=== PATIENT | male | born 1965 | race Caucasian/White ===

== ENCOUNTER 2025-01-10 20:55 | Inpatient (IN) | payer OTHER, SELFPAY ==
[2025-01-10] VITALS (8 sets, daily range): BP systolic 109–142; BP diastolic 61–84; BMI 31.9
[2025-01-10 18:16] LABS: Hematocrit 41.3 % (39.0-52.0); Hemoglobin 15.3 g/dL (13.0-18.0); Mean Corp Hgb Conc. 37.0 g/dL (33.0-37.0); Mean Corpuscular Volume 83.3 fL (80.0-94.0); Nucleated Red Blood Cells % 0 % (-); Platelet Count 182 10^3/uL (130-400); Red Cell Dist. Width 11.9 % (11.5-14.5)
[2025-01-10 18:31] LABS: ALT (SGPT) 66 U/L (0-50); AST (SGOT) 45 U/L (17-59); Albumin 4.4 g/dl (3.5-5.0); Alkaline Phosphatase 90 U/L (38-126); Blood Urea Nitrogen 17 mg/dl (9-20); Calcium 9.9 mg/dl (8.4-10.2); Carbon Dioxide 23 mmol/L (22-30); Chloride 106 mmol/L (98-107); Estimated Creatinine Clearance > 125 ml/min; Glucose 141 mg/dl (70-99); Potassium 3.5 mmol/L (3.5-5.1); Sodium 136 mmol/L (135-145); Total Protein 6.9 g/dl (6.3-8.2); eGFR > 60.00
--- NOTE | 2025-01-10 18:33 | ED.GENMED ---
History of Present Illness
<YNES Edmond - Last Filed: 01/10/25 21:17>
General
Chief Complaint: Chest Pain
Source: patient
Exam Limitations: none
Time Seen by Provider: 01/10/25 18:14
Nursing documentation reviewed up to this point in time: agreed with
History of Present Illness
History of Present Illness:
Patient is a 59 year old male with PMH of [place], CVA, and cardiac pacemaker, who presents to the ED from [facility] this evening complaining of midsternal chest pain and diaphoresis since 1600 today. Patient was administered 2 SL nitro prior to arrival in
the ED. Patient reports the pain is non-radiating. Pain is not altered with movement or palpation. He denies shortness of breath, cough, fever, chills, nausea, vomiting. Patient reports 'feeling closed in by too many people' while in his cell. He
confirms anxiety and is not taking medication. He curently rates his pain as 'crushing' and 7/10. Patient appears anxious and tearful.
Review of Systems
<YNES Edmond - Last Filed: 01/10/25 21:17>
Review of Systems
All Other Systems: ROS reviewed and negative except as documented in HPI and ROS
Constitutional: Reports no symptoms
EENT: Reports no symptoms
Respiratory: Reports no symptoms
Cardiac: Reports chest pain (mid-sternal, non-radiating) and diaphoresis
ABD/GI: Reports no symptoms
: Reports no symptoms
Musculoskeletal: Reports no symptoms
Skin: Reports no symptoms
Neurological: Reports no symptoms
Psychiatric: Reports anxiety and other (tearful)
Phy Exam
<YNES Edmond - Last Filed: 01/10/25 21:17>
Cardiovascular Exam
Cardiovascular Exam: pacemaker
DUTCH Score
Is patient's age greater than or equal to 65 years: No
Does patient have 3 or more CAD risk factors?: Yes
Does patient have known CAD: Yes
Has patient used ASA in past seven days?: Yes (81mg daily)
Has patient had severe angina in past 24 hrs?: Yes
Are patient's cardiac markers elevated?: No
Are there ST changes greater 0.05mm?: No
Result score?: 4
Pulmonary Exam
Pulmonary Exam: lungs clear
Oxygen Status: room air
Cough: no cough
Gastrointestinal Exam
Gastrointestinal Exam: normal bowel sounds, non tender and soft
Neurological Exam
Neurological Exam: alert and oriented x3
Musculoskeletal Exam
Musculoskeletal Exam: full ROM
Psychiatric Exam
Psychiatric Exam: anxious
<Dawn Smith MD - Last Filed: 01/10/25 21:44>
General Physical Exam
General Presentation: mild distress (anxious)
General age: appears stated age
General Skin: diaphoretic (very slight)
General Mental: alert
ENT Exam
ENT Exam: EOMI
DUTCH Score
Result score?: 4
Gastrointestinal Exam
Gastrointestinal Exam: other (no pulsatile mass)
Musculoskeletal Exam
Musculoskeletal Exam: no edema
Skin Exam
Skin Exam: normal color
Psychiatric Exam
Psychiatric Exam: normal mood/affect
Scores
<YNES Edmond - Last Filed: 01/10/25 21:17>
Heart Score for Chest Pain Patients
STEMI patient?: No
History: Moderately Suspicious
ECG: Nonspecific Repolarization
Age: >45 - <65 years
Risk Factors: >/= 3 Risk Factors or History of CAD
Troponin: >1 - <3 x Normal Limit
Heart Score for Chest Pain Patients: 6
Heart Score Risk: 20.3% MACE over next 6 weeks
<Dawn Smith MD - Last Filed: 01/10/25 21:44>
Heart Score for Chest Pain Patients
Heart Score for Chest Pain Patients: 6
Heart Score Risk: 20.3% MACE over next 6 weeks
Course
<YNES Edmond - Last Filed: 01/10/25 21:17>
Orders/Labs/Results
Orders:
Orders
01/10/25 17:52
Electrocardiogram (*1) Urgent
Reason for Study: Chest Pain
01/10/25 17:53
EKG- Treatment ONCE
01/10/25 18:04
Complete Blood Count/With Diff Urgent
Comprehensive Metabolic Panel Urgent
Troponin I Urgent
01/10/25 18:59
Nitroglycerin Sublingual [Nitrostat (Sublingual)] 0.4 mg .ROUTE .STK-MED ONE
01/10/25 19:00
Nitroglycerin Sublingual [Nitrostat (Sublingual)] 0.4 mg SL [id number] PRN
01/10/25 19:26
Morphine Sulfate 4 mg IV NOW STA
01/10/25 20:24
Admit/Transfer Patient As Directed
Co-Sign Provider:
Level of Care: Inpatient admission
Assign to:: Telemetry
Physician / Group: venkatesh
Diagnosis: chest pain
Reason for Telemetry: Arrhythmia
Date to Stop Telemetry: 01/13/25
Time to Stop Telemetry: 11:00
Reason for Hospitalization: chest pain
Expected length of stay greater than two midnights?: Yes
ELOS- Estimated Length of Stay in days: 2
I certify the patient meets the requirements for IP care: Yes
PRN Pain Medication Management As Directed
May give lesser potent ordered pain med per pt: Yes
preference::
Protocol:: Medication orders for pain may be administered in a
manner that supports deferring to patient preference
when the pt is:
- Requesting an ordered lesser potent pain medication.
Least to most potent pain medications are defined
as: acetaminophen < NSAID < tramadol < opioids
(morphine, oxycodone, hydromorphone).
- Requesting a lesser dose of the same medication IF
ORDERED.
- Requesting a less intrusive route of administration
if both routes are prescribed by the provider (PO <
IV).
01/10/25 20:25
Code Status As Directed
Resuscitation Status: Full Code
01/13/25 11:00
DC Protocol for Telemetry ONCE
Abnormal Lab Results
01/10/25
18:04
Glucose 141 H mg/dl
(70-99)
Total Bilirubin 2.5 H mg/dl
(0.2-1.3)
ALT 66 H U/L
(0-50)
Troponin I 0.041 H* ng/ml
01/10/25 18:04
01/10/25 18:04
Vital Signs
Initial and Last Documented VS:
Initial Vital Signs
Temp Pulse Resp BP Pulse Ox
98.3 F 70 26 118/71 99
01/10/25 17:53 01/10/25 17:53 01/10/25 17:53 01/10/25 17:53 01/10/25 17:53
Last Documented Vital Signs
Temp Pulse Resp BP Pulse Ox
98.3 F 70 15 111/61 97
01/10/25 17:53 01/10/25 20:15 01/10/25 20:00 01/10/25 20:00 01/10/25 20:15
<Dawn Smith MD - Last Filed: 01/10/25 21:44>
Orders/Labs/Results
Orders:
Orders
01/10/25 17:52
Electrocardiogram (*1) Urgent
Reason for Study: Chest Pain
01/10/25 17:53
EKG- Treatment ONCE
01/10/25 18:04
Complete Blood Count/With Diff Urgent
Comprehensive Metabolic Panel Urgent
Troponin I Urgent
01/10/25 18:59
Nitroglycerin Sublingual [Nitrostat (Sublingual)] 0.4 mg .ROUTE .STK-MED ONE
01/10/25 19:00
Nitroglycerin Sublingual [Nitrostat (Sublingual)] 0.4 mg SL [id number] PRN
01/10/25 19:26
Morphine Sulfate 4 mg IV NOW STA
01/10/25 20:24
Admit/Transfer Patient As Directed
Co-Sign Provider:
Level of Care: Inpatient admission
Assign to:: Telemetry
Physician / Group: venkatesh
Diagnosis: chest pain
Reason for Telemetry: Arrhythmia
Date to Stop Telemetry: 01/13/25
Time to Stop Telemetry: 11:00
Reason for Hospitalization: chest pain
Expected length of stay greater than two midnights?: Yes
ELOS- Estimated Length of Stay in days: 2
I certify the patient meets the requirements for IP care: Yes
PRN Pain Medication Management As Directed
May give lesser potent ordered pain med per pt: Yes
preference::
Protocol:: Medication orders for pain may be administered in a
manner that supports deferring to patient preference
when the pt is:
- Requesting an ordered lesser potent pain medication.
Least to most potent pain medications are defined
as: acetaminophen < NSAID < tramadol < opioids
(morphine, oxycodone, hydromorphone).
- Requesting a lesser dose of the same medication IF
ORDERED.
- Requesting a less intrusive route of administration
if both routes are prescribed by the provider (PO <
IV).
01/10/25 20:25
Code Status As Directed
Resuscitation Status: Full Code
01/13/25 11:00
DC Protocol for Telemetry ONCE
Abnormal Lab Results
01/10/25
18:04
Glucose 141 H mg/dl
(70-99)
Total Bilirubin 2.5 H mg/dl
(0.2-1.3)
ALT 66 H U/L
(0-50)
Troponin I 0.041 H* ng/ml
01/10/25 18:04
01/10/25 18:04
Vital Signs
Initial and Last Documented VS:
Initial Vital Signs
Temp Pulse Resp BP Pulse Ox
98.3 F 70 26 118/71 99
01/10/25 17:53 01/10/25 17:53 01/10/25 17:53 01/10/25 17:53 01/10/25 17:53
Last Documented Vital Signs
Temp Pulse Resp BP Pulse Ox
98.3 F 70 15 111/61 97
01/10/25 17:53 01/10/25 20:15 01/10/25 20:00 01/10/25 20:00 01/10/25 20:15
<YNES Edmond - Last Filed: 01/10/25 21:17>
MDM/Problems Addressed
Differential Diagnosis Includes:
NSTEMI, unstable angina, pacemaker malfunction
Chronic conditions affecting care: CAD
<Dawn Smith MD - Last Filed: 01/10/25 21:44>
MDM/Problems Addressed
MDM/Problems Addressed:
Pt presents with acute CP
Acute Exacerbation and/or Progression of Chronic Illness:
PAtient likely has acute exacerbation of chronic CAD
Acute Exacerbation and/or Progression of Chronic Illness: CAD
<YNES Edmond - Last Filed: 01/10/25 21:17>
*Pulse Oximetry
SaO2: 99
Oxygen Mode of Delivery: Room air
<Dawn Smith MD - Last Filed: 01/10/25 21:44>
*Pulse Oximetry
Patient hypoxic: no
Comment: 99% on RA
*EKG
Interpreted by ED Provider?: Yes
Interpretation: abnormal
Comparison EKG: no comparison EKG present
Rate: normal
Rhythm: ventricular paced
[place]: right axis deviation
Interval: normal interval
QRS Pattern: wide non-specific
Ischemia: non-specific ST changes
*Utilization Management Nurse Interpretation
Rate: normal
Interpretation: normal
Rhythm: ventricular paced
*Critical Care Note
Total Time (30-74mins, 75-104mins- exclusive of procedures): 32 min
comment:
32 min of critical care given to patient including multiple assessments of his pain, reviewing his labs, EKG, and notifying hospitalist
Data Reviewed
Review of Other/Old Records Reveals: Other (transfer form reviewed- SL nitro given at 17:21)
Source: patient
<Dawn Smith MD - Last Filed: 01/10/25 21:44>
Patient Management
Social determinants of health affecting care: Living situation and Strong social support
Escalation/DeEscalation of care consider admission/obs:
8:05 Pt is nearly chest pain free, well appearing after SL nitro, 325 aspirin and morphine
ED Attending Note
<YNES Edmond - Last Filed: 01/10/25 21:17>
-
Portions of this chart may have been created with voice recognition software.� Occasional wrong word or��sound alike� substitutions may have occurred due to the inherent limitations of voice recognition software.
Discharge Plan
Departure
Patient Disposition: Admit
Date of Disposition: 01/10/25
Time of Disposition: 20:01
Admit to: Telemetry
Presentation/result/management discussed w/ accepting MD/DO: Hospitalist
Patient with high blood pressure during this ER visit?: No
Condition: Good
Covid-19: Not Applicable
Discharge Problem:
Chest pain, Elevated troponin
[2025-01-10 18:45] LABS: Troponin I 0.041 ng/ml
[2025-01-10] MEDS: NITROSTAT (SUBLINGUAL) 0.4 MG SL (19:01)
[2025-01-10] MEDS: MORPHINE SULFATE 4 MG IV (19:41)
--- NOTE | 2025-01-10 20:28 | HPS.HSE ---
Family Physician
-
Family Physician: [facility]
Chief Complaint
-
chest pain
History of Present Illness
59-year-old male past medical history of CAD, prior ME, CHF with ICD, paroxysmal atrial fibrillation, hypertension, CVA, anxiety, diabetes, presenting from senior care with midsternal crushing chest pain and diaphoresis since 4 PM today. This was
associated with diaphoresis and shortness of breath. Denies nausea or vomiting. He was given 2 sublingual nitroglycerin prior to arrival. Pain is nonradiating. Pain is not worse with movement.
He has been having pain like this occasionally but not as severe as this.
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 who he last saw 2 to 3 months ago.
Denies smoking or alcohol drugs.
His brother had heart disease.
Medical History
Past Medical History
Past Medical History: Reports Other ( CAD, prior ME, CHF with ICD, paroxysmal atrial fibrillation, hypertension, CVA, anxiety, diabetes)
Past Surgical History: Reports None
Social History
Tobacco: Non-smoker
Alcohol: None
Drug: None
Family History
Family History: Not pertinent
Allergies / Home Medications
Allergies reflects when Allergies were last updated in [employer].
Home Medications with original date entered in [employer]
Allergy/Medication List:
Allergies
Allergy/AdvReac Type Severity Reaction Status Date / Time
No Known Allergies Allergy Verified 01/10/25 18:08
Home Medications
aspirin 81 mg tablet,delayed release 81 mg PO DAILY 01/10/25
atorvastatin 40 mg tablet (Lipitor) 40 mg PO DAILY 01/10/25
bumetanide 2 mg tablet 2 mg PO DAILY 01/10/25
carvedilol 12.5 mg tablet (Coreg) 12.5 mg PO Q12H 01/10/25
empagliflozin 10 mg tablet (Jardiance) 10 mg PO DAILY 01/10/25
rivaroxaban 20 mg tablet (Xarelto) 20 mg PO DAILY 01/10/25
tirzepatide 5 mg/0.5 mL subcutaneous pen injector (Mounjaro) 5 mg SC QWEEK 01/10/25
Review of Systems
-
History Source: Patient
A 12 point ROS was completed and negative except as noted: Yes
Physical Exam
Vital Signs
Vital Signs
Temp Pulse Resp BP Pulse Ox
98.3 F 70 26 138/82 99
01/10/25 17:53 01/10/25 17:53 01/10/25 17:53 01/10/25 19:01 01/10/25 18:34
Physical Exam
General: Well Developed, Well Nourished and No Apparent Distress
HEENT: NormoCephalic, Moist mucous membranes and Atraumatic
Respiratory: Clear
Cardiac: S1/S2 and Regular Rhythm; No Murmur or Rub
GI: Soft, Non Tender, Non Distended and Normal Bowel Sounds; No Organomegaly
Rectal: Deferred by Provider
Musculoskeletal: No Clubbing, No Cyanosis and No Edema
Skin: No Rash
Neuro: Nonfocal/grossly intact
Laboratory Results
-
01/10/25 18:04
01/10/25 18:04
Laboratory Results
Total Bilirubin 2.5 mg/dl (0.2-1.3) H 01/10/25 18:04
AST 45 U/L (17-59) 01/10/25 18:04
ALT 66 U/L (0-50) H 01/10/25 18:04
Alkaline Phosphatase 90 U/L (38-126) 01/10/25 18:04
Troponin I 0.041 ng/ml H* 01/10/25 18:04
Data Reviewed
-
Lab Data: Labs Reviewed by me
Old Records: Reviewed
Impression/Plan
-
IMPRESSION:
PLAN:
# Chest pain possible ACS
# History of prior ME
- Troponin 0.041
- EKG shows ventricular paced rhythm
- Trend troponins
-Aspirin 325 mg given prior to arrival, continue aspirin and statin
- Patient given morphine and nitroglycerin with resolution of pain
- Hold Xarelto and start heparin drip
- Cardiology consulted
History of CHF with ICD
- Continue Bumex
- Continue Coreg
Paroxysmal atrial fibrillation
- Hold Xarelto and start heparin drip
Essential hypertension
History of CVA
Type 2 diabetes
- Continue Jardiance
- On Mounjaro
- Insulin sliding scale
Anxiety
Full code
DVT prophylaxis�Xarelto
Cardiac diet
[2025-01-10 23:01] LABS: Hematocrit 34.8 % (39.0-52.0); Hemoglobin 12.7 g/dL (13.0-18.0); Mean Corp Hgb Conc. 36.5 g/dL (33.0-37.0); Mean Corpuscular Volume 85.1 fL (80.0-94.0); Platelet Count 153 10^3/uL (130-400); Red Cell Dist. Width 11.9 % (11.5-14.5)
[2025-01-10] MEDS: VALIUM 2 MG PO (23:01)
[2025-01-10 23:11] LABS: APTT 27.5 Sec (23.4-35.0)
[2025-01-10] MEDS: HEPARIN 25000 UNITS/250 ML IV (23:14)
[2025-01-10 23:36] LABS: Troponin I 0.029 ng/ml
[2025-01-10] MEDS: COREG 12.5 MG PO (23:54)
[2025-01-11] VITALS (16 sets, daily range): BP systolic 110–135; BP diastolic 63–78
[2025-01-11 06:00] LABS: Hematocrit 40.9 % (39.0-52.0); Hemoglobin 14.6 g/dL (13.0-18.0); Mean Corp Hgb Conc. 35.7 g/dL (33.0-37.0); Mean Corpuscular Volume 85.4 fL (80.0-94.0); Nucleated Red Blood Cells % 0 % (-); Platelet Count 164 10^3/uL (130-400); Red Cell Dist. Width 12.0 % (11.5-14.5)
[2025-01-11 06:16] LABS: APTT 96.7 Sec (23.4-35.0)
[2025-01-11 06:24] LABS: ALT (SGPT) 64 U/L (0-50); AST (SGOT) 43 U/L (17-59); Albumin 3.9 g/dl (3.5-5.0); Alkaline Phosphatase 82 U/L (38-126); Blood Urea Nitrogen 13 mg/dl (9-20); Calcium 9.2 mg/dl (8.4-10.2); Carbon Dioxide 32 mmol/L (22-30); Chloride 105 mmol/L (98-107); Estimated Creatinine Clearance > 125 ml/min; Glucose 93 mg/dl (70-99); Potassium 3.8 mmol/L (3.5-5.1); Sodium 140 mmol/L (135-145); Total Protein 6.3 g/dl (6.3-8.2); eGFR > 60.00
[2025-01-11 06:35] LABS: Troponin I 0.033 ng/ml
[2025-01-11] MEDS: COREG 12.5 MG PO ×2 (08:22→19:46)
[2025-01-11] MEDS: FARXIGA 10 MG PO (08:22)
[2025-01-11] MEDS: LIPITOR 40 MG PO (08:22)
[2025-01-11] MEDS: BUMEX 2 MG PO (08:22)
[2025-01-11] MEDS: ASPIR LOW (ENTERIC COATED) 81 MG PO (08:22)
[2025-01-11 08:26] LABS: Glucose - Point of Care 94 mg/dl (70-99)
[2025-01-11] MEDS: NOVOLOG FLEXPEN-LOW RESISTANCE SC ×3 (08:28→17:30)
[2025-01-11 09:49] LABS: Glycohemoglobin (HgbA1c) 6.7 % (4.0-5.6)
--- NOTE | 2025-01-11 10:07 | CON.CAR ---
Addendum entered and electronically signed by Neida Montes PA-C 01/11/25 11:44:
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 His last left heart catheterization was in 2019 and showed no CAD. He had a history of intolerance to JUAN/ARB/ARNI due to significant hypotension. He was trialed on
spironolactone as well with resultant hypotension. He has a [employer] SAP SOLUTIONS ARCHITECT-D placed at [facility] initially in 2018 as a dual-chamber, then upgraded to BiV 2019, MRI compatible. As of device check 11/2024 had 8 months of
battery longevity. reportedly has chronically elevated T. bili.
Last echocardiogram 09/21/2023: EF 36%, mild MR with moderate LA enlargement
Addendum entered and electronically signed by Ari Do MD 01/11/25 11:20:
59-year-old man with known extensive cardiac history followed at [facility], currently residing at the [facility] who developed chest pain this morning with troponin of 0.041. Had relief with nitroglycerin. Last visit to [facility] cardiology was 2
to 3 months ago
PMH: CAD, prior [place], PCI by report, HFrEF with ICD, paroxysmal A-fib, hypertension, CVA, diabetes, anxiety, hyperlipidemia
Current meds:: IV heparin, aspirin 81 mg a day, atorvastatin 40 mg a day, Bumex 2 mg a day, carvedilol 12.5 mg twice daily, dapagliflozin 10 mg daily
131/65, pulse 70, respiratory rate 11, afebrile, no distress, head neck exam unremarkable lungs are clear, regular rate and rhythm, abdomen benign extremities without clubbing cyanosis or edema
EKG probable atrial fibrillation with ventricular pacing
Chest x-ray pending
Normal CBC, CO2 was 32, BUN and creatinine are 13 and 0.7 potassium is 3.8, bilirubin is 2.4, hemoglobin A1c is 6.7, AST is T is 43 ALT is 64, troponin is 0.041 and subsequently 0.033
Impression:
Chest discomfort with detectable troponin
History of CAD/prior [place], suspected PCI, ICD, paroxysmal atrial fibrillation (currently in A-fib), diabetes, history of CVA, hypertension, hyperlipidemia
Any additional diagnoses as below, reviewed in detail and agree unless otherwise specified
Plan:
He presents with a complex cardiac history and chest pain with a detectable troponin. It will be important to review his records from [facility]. We will interrogate his device as well, though currently he does not know the meat service team member.
He appears comfortable now. His EKG is essentially uninterpretable, but there are not changes consistent with [place] criteria suggesting an ACS. His troponin is minimally elevated and trending downwards.
Okay to discontinue heparin at this time. Will check his echocardiogram and observe overnight. We will set up an outpatient sestamibi study as it is likely he will be at the facility for some time.
Will continue to optimize medical regimen. Continue beta-demond. Will add low-dose of an ARB, consider spironolactone, continue Jardiance.
Will observe overnight and reassess in the morning.
Original Note:
Consultation
Consultation Request
Date/Time Consultation Performed: 01/11/25
Requesting Provider: Dr. Henley
Performing Provider: Neida Montes PA-C for Dr. MIREYA Do
Reason for Consultation: CP
Medical History
-
Chief Complaint: CP
History of Present Illness:
Patient is a 59-year-old male with past medical history of nonischemic cardiomyopathy with EF most recently 36% by echo June 2023 (required inotropic therapy with milrinone for a year, stopped 06/2020), history of SAP SOLUTIONS ARCHITECT-D, heart failure with
reduced EF, atrial fibrillation on chronic Xarelto, diabetes, CKD, history of CVA, bariatric surgery 2021, GLENIS who presents to [facility] due to complaints of chest discomfort, shortness of breath and diaphoresis which started around 1600 yesterday. Of
note he also reports a history of an [place] in 2012, however by my review of records obtained this far this is not listed in his history. He was reportedly detained yesterday and [facility] to [email or web address] He states he was put in his
fdc cell and states he became very anxious. He has a history of anxiety but is not taking medication for this. He was given 2 sublingual nitro with improvement in symptoms. Initial troponin 0.041 and downtrending. No present chest pain.
PMH:
Nonischemic cardiomyopathy, EF as low as 18% in past, however most recently 36% by echo 06/2023
History of SAP SOLUTIONS ARCHITECT-D
Chronic heart failure with reduced EF
Permanent atrial fibrillation
Chronic Xarelto therapy
Diabetes
CKD
History of CVA
History of bariatric surgery in 2021
GLENIS
Past Medical History
Past Medical History: Other (in HPI)
Social History
Tobacco: Non-Smoker
Alcohol: None
Living: [facility]
Allergies / Home Medications
Allergy/AdvReac Type Severity Reaction Status Date / Time
No Known Allergies Allergy Verified 01/10/25 18:08
�Medication �Instructions �Recorded �Confirmed �Type
aspirin 81 mg tablet,delayed 81 mg PO DAILY 01/10/25 01/11/25 History
release
atorvastatin 40 mg tablet (Lipitor) 40 mg PO DAILY 01/10/25 01/11/25 History
bumetanide 2 mg tablet 2 mg PO DAILY 01/10/25 01/11/25 History
carvedilol 12.5 mg tablet (Coreg) 12.5 mg PO Q12H 01/10/25 01/11/25 History
empagliflozin 10 mg tablet 10 mg PO DAILY 01/10/25 01/11/25 History
(Jardiance)
rivaroxaban 20 mg tablet (Xarelto) 20 mg PO DAILY 01/10/25 01/11/25 History
tirzepatide 5 mg/0.5 mL 5 mg SC QWEEK 01/10/25 01/11/25 History
subcutaneous pen injector
(Mounjaro)
Review of Systems
-
History Source: Patient
All other systems: Negative unless noted
Physical Exam
Vital Signs
Temp Pulse Resp BP Pulse Ox
98.3 F 70 11 131/65 100
01/10/25 17:53 01/11/25 06:00 01/11/25 06:00 01/11/25 06:00 01/11/25 06:00
Lab Results
01/11/25 05:34
01/11/25 05:34
Troponin I 0.033 ng/ml 01/11/25 05:34
Physical Exam
General: No Apparent Distress and Comfortable
HEENT: Normocephalic, Anicteric and Moist Mucous Membranes
Respiratory: Clear and Non Labored Respirations
Cardiac: S1/S2 and Regular Rhythm
GI: Soft, Non Tender, Non Distended and Normal Bowel Sounds
Musculoskeletal: No Clubbing, No Cyanosis and No Edema
Skin: Warm and Dry
Neuro: AO x 3
Impression / Plan
-
Primary Cardiology provider: Sail[facility], [place]
Assessment:
Presentation with CP
Elevated troponin
Nonischemic cardiomyopathy, EF as low as 18% in past, however most recently 36% by echo 06/2023
History of SAP SOLUTIONS ARCHITECT-D
Chronic heart failure with reduced EF
Permanent atrial fibrillation
Chronic Xarelto therapy
Diabetes
CKD
History of CVA
History of bariatric surgery in 2021
GLENIS
ECHO 06/2023 OSH: EF 36%
Plan:
- Patient presented with episode of chest discomfort and shortness of breath. He was detained/arrested yesterday and reportedly symptoms started when he was put in his cell with associated anxiety.
- Initial troponin 0.041, followed by 0.025, 0.033. Was given sublingual nitro with relief. Presently pain-free
- EKG V paced
- Requested records from [facility] for review, some obtained, awaiting additional
- Interrogate device once device type known
- Check echo
- IV heparin in place of OP xarelto, presently on hold
- continue asa, statin
- continue coreg, farxiga for known CM. he has history of intolerance to juan/arb/arni in past
- Monitor for pain recurrence
- Further recommendations based on results of above
- Discussed with nursing
Data Reviewed
-
EKG: Tracing Personally Visualized and interpreted
Labs: Labs Reviewed by me
Old Records: Requested and Reviewed
--- NOTE | 2025-01-11 11:20 | CARDSERVLU ---
Echocardiogram with [facility]ason completed after protocol screening completed. Allergies verified.
Patent IV site: __R hand___
IV site flushed with 0.9% NaCl pre and post administration.
Diluted bolus method utilized to enhance visualization of ventricular traore.
Total volume given: _2.5___ mL
Patient tolerated all procedures well without complications.
[2025-01-11] MEDS: ALDACTONE 12.5 MG PO (12:03)
[2025-01-11 12:08] LABS: Glucose - Point of Care 108 mg/dl (70-99)
[2025-01-11 12:11] LABS: Troponin I 0.023 ng/ml
[2025-01-11 12:14] LABS: APTT 133.8 Sec (23.4-35.0)
--- NOTE | 2025-01-11 13:59 | W.CARD.DEVCH ---
Cardiac Device Check
-
Device: Implanted Cardioverter-Defibrillator
Books Binder: [employer]
The patient's device was interrogated with assistance of the device sales representative metals. The device had normal function. Programmed VVI for chronic A-fib. 100% paced. 5 months left of battery. No events or tacky therapies. Lead testing did not
reproduce chest discomfort. He was noted to have increased LV output, however historically has had chronically high LV thresholds.
--- NOTE | 2025-01-11 15:21 | W.PN.HOSP.TC ---
Today's Communication/Plan
-
Echo
DC planning
Assessment / Plan
Assessment / Plan
# Chest pain-no evidence of MA but clinical concern for cardiac pain due to his risk factors.
# History of prior MA
- Troponin indeterminate
- EKG shows ventricular paced rhythm
- Additional info as per food porter-prior cardiac catheterization 2018 showed no CAD. 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
- Plan is to check an echo and observe overnight and consider outpatient stress test.
- Hold further IV heparin and reintroduce his Xarelto.
History of CHF with ICD
- Continue Bumex
- Continue Coreg
- Continue with SGLT2 antagonist.
Patient did not tolerate Entresto in the past. Losartan and spironolactone introduced by cardiology on this admission
Paroxysmal atrial fibrillation
- Continue Xarelto
Essential hypertension plan continue the current medication
History of CVA-continue with anticoagulation
Type 2 diabetes
- Continue Jardiance
- On Mounjaro
- Insulin sliding scale
Anxiety
Full code
DVT prophylaxis�Xarelto
Cardiac diet
Anticipated Discharge: 24 - 48 hours
Subjective/Interval History
-
Date of Service: January 11, 2025
Currently without chest pain or shortness of breath.
Objective Data
-
Labs:
Laboratory Results
01/11/25 01/11/25
05:34 11:37
WBC 5.4
Hgb 14.6
Hct 40.9
Plt Count 164
APTT 96.7 H 133.8 H
Sodium 140
Potassium 3.8
Chloride 105
Carbon Dioxide 32 H
BUN 13
Creatinine 0.7
Glucose 93
Calcium 9.2
Total Bilirubin 2.4 H
AST 43
ALT 64 H
Alkaline Phosphatase 82
Vital Signs:
Vital Signs
Temp Pulse Resp BP Pulse Ox
98.3 F 70 15 118/70 95
01/10/25 17:53 01/11/25 12:00 01/11/25 12:00 01/11/25 12:00 01/11/25 12:00
Physical Exam
-
General: Comfortable
Respiratory: Clear to Auscultation and Non Labored Respirations; Negative Accessory Resp Muscle Use
Cardiac: Regular Rhythm and S1/S2; Negative Tachycardic
Neuro: AO x 3
Data Reviewed
-
Labs: Labs Reviewed by me
[2025-01-11 17:29] LABS: Glucose - Point of Care 120 mg/dl (70-99)
[2025-01-11] MEDS: XARELTO 20 MG PO (17:30)
[2025-01-11 19:53] LABS: Glucose - Point of Care 112 mg/dl (70-99)
[2025-01-11] MEDS: VALIUM 2 MG PO (22:42)
--- NOTE | 2025-01-11 22:42 | PTCARENOTE ---
pt. c/o of chest pain and anxiety. BULL FLOAT FINISHER notified. One does of valium given
[2025-01-12] VITALS (8 sets, daily range): BP systolic 96–131; BP diastolic 61–79
[2025-01-12] MEDS: NITROSTAT (SUBLINGUAL) 0.4 MG SL ×3 (00:03→10:36)
[2025-01-12] MEDS: MORPHINE SULFATE 1 MG IV (00:36)
[2025-01-12] MEDS: NSS 250 IV (00:38)
[2025-01-12 00:54] LABS: Troponin I 0.018 ng/ml
--- NOTE | 2025-01-12 01:00 | PTCARENOTE ---
Addendum entered by Nieves Ruby RN 01/12/25 02:31:
nitrox2 no relief. BP 105/64 Trop ordered and one time dose of morphine and 250 bolus. Trop results 0.018 VSS pt c/o chest pain 2hrs after morphine given. Pt. refused Tylenol. No c/o nausea. no diaphoresis noted. Pt care ongoing
Original Note:
Pt c/o chest pain and anxiety. EKG was done and unremarkable. VSSS ALARM ADJUSTER notified and one time dose of valium given. continued c/o chest pain. nitro x1 given with no result. Nitrox2
[2025-01-12 07:57] LABS: Glucose - Point of Care 108 mg/dl (70-99)
[2025-01-12] MEDS: NOVOLOG FLEXPEN-LOW RESISTANCE SC ×3 (07:59→16:37)
[2025-01-12] MEDS: ASPIR LOW (ENTERIC COATED) 81 MG PO (08:01)
[2025-01-12] MEDS: BUMEX 2 MG PO (08:01)
[2025-01-12] MEDS: COREG 12.5 MG PO ×2 (08:02→20:43)
[2025-01-12] MEDS: ULTRAM 50 MG PO (08:02)
[2025-01-12] MEDS: LIPITOR 40 MG PO (08:02)
[2025-01-12] MEDS: FARXIGA 10 MG PO (08:02)
[2025-01-12] MEDS: ZOFRAN 4 MG IV (08:02)
[2025-01-12 09:03] LABS: Blood Urea Nitrogen 13 mg/dl (9-20); Calcium 9.2 mg/dl (8.4-10.2); Carbon Dioxide 27 mmol/L (22-30); Chloride 106 mmol/L (98-107); Estimated Creatinine Clearance 109 ml/min; Glucose 81 mg/dl (70-99); Lipase 137 U/L (23-300); Potassium 3.0 mmol/L (3.5-5.1); Sodium 139 mmol/L (135-145); eGFR > 60.00
[2025-01-12 11:08] LABS: Glucose - Point of Care 139 mg/dl (70-99)
[2025-01-12] MEDS: DILAUDID 0.5 MG IV ×2 (11:18→20:42)
--- NOTE | 2025-01-12 11:34 | W.PN.HOSP.TC ---
Addendum entered and electronically signed by Jamie Henley MD 01/12/25 11:41:
hypokalemia -replete
Original Note:
Today's Communication/Plan
-
Repeat troponins
Dulcolax suppository
Assessment / Plan
Assessment / Plan
# Chest pain-no evidence of VT but clinical concern for cardiac pain due to his risk factors.
#Recurrent chest pain unclear etiology
# History of prior VT
- Troponin indeterminate. Repeat troponins again today and if negative for noncardiac reasons of chest pain.
- EKG shows ventricular paced rhythm
- Additional info as per warehouse examiner-prior cardiac catheterization 2018 showed no CAD. 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
- Continue with aspirin and statins. He is also on beta-demond and Xarelto.
- If troponins are negative will get a CTA of the abdomen pelvis of further ongoing chest pains as there is elevated ALT and bilirubin. According to patient bilirubin is chronically elevated apparently. Direct bilirubin is normal suggestive of
indirect hyperbilirubinemia may be Gilbert's but does not explain the ALT elevation. Lipase normal.
Chronic heart failure with reduced EF with ICD
Repeat echo 01/11 shows EF of 20 to 25%.
Clinically no signs of acute heart failure
- Continue Bumex
- Continue Coreg
- Continue with SGLT2 antagonist.
Patient did not tolerate Entresto in the past. Losartan and spironolactone introduced by cardiology on this admission
Paroxysmal atrial fibrillation
- Continue Xarelto
Essential hypertension plan continue the current medication
History of CVA-continue with anticoagulation
Type 2 diabetes
- Continue Jardiance
- On Mounjaro
- Insulin sliding scale
Anxiety
Full code
DVT prophylaxis�Xarelto
Cardiac diet
Discussed with RN
Discussed with cardiology at bedside
Total time spent on today's encounter was 52 minutes which included time spent in counseling the patient/family regarding diagnosis and treatment plan as listed above, goals of care, and symptom management. Case was discussed with nursing staff,
specialists, and care coordinators/case management. All labs and imaging personally reviewed by me. Remainder the time spent in detailed review of previous records, lab data, imaging, and other medical provider documentation.
Portions of this chart may have been created with voice recognition software. Occasional wrong word or 'sound alike' substitutions may have occurred due to the inherent limitations of voice recognition software.
Anticipated Discharge: 24 - 48 hours
Subjective/Interval History
-
Date of Service: January 12, 2025
Ongoing chest pain. He needed pain medication IV last night
This morning he complained about chest pain again today. Localized to anterior chest. No radiation. He got nitro without much benefit. He got IV Dilaudid for pain now it is improving.
No nausea vomiting. Constipated for 2 days. No abdominal pain. Denies any prior history of peptic ulcer disease or esophageal issues.
Denies shortness of breath.
He questions if this is all pain due to his anxiety.
Objective Data
-
Labs:
Laboratory Results
01/12/25
06:56
Sodium 139
Potassium 3.0 L
Chloride 106
Carbon Dioxide 27
BUN 13
Creatinine 0.8
Glucose 81
Calcium 9.2
Vital Signs:
Vital Signs
Temp Pulse Resp BP Pulse Ox
97.5 F 70 18 96/66 96
01/12/25 07:05 01/12/25 11:09 01/12/25 11:09 01/12/25 11:09 01/12/25 11:09
I&O
01/11/25 01/12/25 01/13/25
06:59 06:59 06:59
Intake Total 730 / 730
Output Total 500 / 500
Balance 230 / 230
Physical Exam
-
General: Comfortable
Respiratory: Clear to Auscultation and Non Labored Respirations; Negative Accessory Resp Muscle Use
Cardiac: Regular Rhythm and S1/S2
GI: Soft, Nontender, Nondistended and Normal Bowel Sounds
Neuro: AO x 3
Psych: Calm
Data Reviewed
-
Labs: Labs Reviewed by me
[2025-01-12] MEDS: COLACE 100 MG PO ×2 (12:07→20:43)
[2025-01-12] MEDS: KCL 40 MEQ PO (12:07)
[2025-01-12] MEDS: MIRALAX 17 GRAMS PO (12:07)
--- NOTE | 2025-01-12 12:08 | W.PN.CARDCBS ---
Today's Communication / Plan
-
Repeat troponin
Received Dilaudid and nitroglycerin for pain
Improving pain which is in the abdomen and left chest
Does not appear that he has a significant coronary lesion responsible for his symptoms
Outpatient ischemic evaluation can be considered
If his troponin value from today is stable I have no objection to discharge
Impression / Plan
-
Primary Cardiology provider: S[facility], [place]
Assessment:
Presentation with CP
Elevated troponin
Nonischemic cardiomyopathy, EF as low as 18% in past, however most recently 36% by echo 06/2023
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
Chronic heart failure with reduced EF
Permanent atrial fibrillation
Chronic Xarelto therapy
Diabetes
CKD
History of CVA
History of bariatric surgery in 2021
GLENIS
ECHO 06/2023 OSH: EF 36%
Plan:
- Patient presented with episode of chest discomfort and shortness of breath. He was detained/arrested yesterday and reportedly symptoms started when he was put in his cell with associated anxiety.
- Initial troponin 0.041, followed by 0.025, 0.033. Was given sublingual nitro with relief. Presently pain improving after Dilaudid-'I need to go back '
- EKG V paced
- Known ischemic cardiomyopathy with diminished ejection fraction
- Resume Xarelto at discharge
- continue asa, statin
- continue coreg, farxiga for known CM. he has history of intolerance to magy/arb/arni in past
- No objection to outpatient stress testing but do not need to perform this as an inpatient nor do we need to consider more invasive measures at this time
-As he had pain right prior to discharge I asked primary service to check a repeat troponin to make sure this is not rising significantly and if either close to even with or less than current values I have no objection for him to be discharged from
a cardiovascular perspective
- Discussed with nursing and hospitalist team
Progress Note - Slp Teacher
Subjective
Date of Service: January 12, 2025
4-10 chest pain which is improving after sublingual nitroglycerin and IV Dilaudid
Objective
Labs:
01/11/25 05:34
01/12/25 06:56
Labs
Hgb 14.6 g/dL (13.0-18.0) 01/11/25 05:34
Hct 40.9 % (39.0-52.0) 01/11/25 05:34
Plt Count 164 10^3/uL (130-400) 01/11/25 05:34
APTT 133.8 Sec (23.4-35.0) H 01/11/25 11:37
Sodium 139 mmol/L (135-145) 01/12/25 06:56
Potassium 3.0 mmol/L (3.5-5.1) L 01/12/25 06:56
BUN 13 mg/dl (9-20) 01/12/25 06:56
Creatinine 0.8 mg/dL (0.7-1.3) 01/12/25 06:56
Glucose 81 mg/dl (70-99) 01/12/25 06:56
Troponins
01/10/25 01/10/25 01/11/25
18:04 22:51 05:34
Troponin I 0.041 H* 0.029 D 0.033
01/11/25 01/12/25
11:38 00:20
Troponin I 0.023 D 0.018
Vital Signs and I&O:
Vital Signs
Temp Pulse Resp BP Pulse Ox
97.5 F 70 18 96 96
01/12/25 07:05 01/12/25 11:09 01/12/25 11:09 01/12/25 11:09 01/12/25 11:09
Vital Signs
Temp Pulse Resp BP Pulse Ox
97.5 F 70 18 96/66 96
01/12/25 07:05 01/12/25 11:09 01/12/25 11:09 01/12/25 11:09 01/12/25 11:09
Intake & Output
01/10/25 01/11/25 01/12/25 01/13/25
06:59 06:59 06:59 06:59
Intake Total 730 / 730
Output Total 500 / 500
Balance 230 / 230
Physical Exam
Physical Exam
����Physical Exam
���������������������General:��no apparent distress, not acutely ill
���������������������������Neck:��supple. no meningeal signs. normal psoterior pharynx
������������������������
���������������������������Heart:��s1/s2 regular rate and rhythm, no murmur. equal radial pulses.
Paced
��������������������������Lungs: ��no acute respiratory distress. clear bilaterally
����������������������Abdomen:�normal bowel sounds. not tender. no CVAT
��������������������������Neuro:��alert and oriented. no focal neurological deficits
������������������������������Skin: ��no rash
�����������������������Psychiatric:�well kept. interactive and cooperative
�����������������������Extremities:��no edema. no calf tenderness. negative homans. good distal pulses
��
�
[2025-01-12 12:31] LABS: Troponin I 0.022 ng/ml
--- NOTE | 2025-01-12 15:56 | PTCARENOTE ---
Pt refused to take rectal dulcolax.. Pt stated that that if he doesn't have a BM by the morning, then he'll take the suppository.
[2025-01-12 16:36] LABS: Glucose - Point of Care 136 mg/dl (70-99)
[2025-01-12] MEDS: XARELTO 20 MG PO (16:37)
[2025-01-12 18:25] LABS: Troponin I 0.015 ng/ml
[2025-01-12 21:27] LABS: Glucose - Point of Care 168 mg/dl (70-99)
[2025-01-13 06:00] VITALS: BMI 29.9
[2025-01-13 06:35] LABS: Blood Urea Nitrogen 14 mg/dl (9-20); Calcium 9.0 mg/dl (8.4-10.2); Carbon Dioxide 27 mmol/L (22-30); Chloride 105 mmol/L (98-107); Estimated Creatinine Clearance 96 ml/min; Glucose 101 mg/dl (70-99); Potassium 3.4 mmol/L (3.5-5.1); Sodium 139 mmol/L (135-145); eGFR > 60.00
[2025-01-13 07:05] VITALS: BP 134/76
[2025-01-13 08:05] LABS: Glucose - Point of Care 98 mg/dl (70-99)
[2025-01-13] MEDS: NOVOLOG FLEXPEN-LOW RESISTANCE SC ×3 (08:11→17:31)
[2025-01-13] MEDS: DILAUDID 0.5 MG IV ×2 (08:11→19:41)
[2025-01-13] MEDS: LIPITOR 40 MG PO (08:12)
[2025-01-13] MEDS: ASPIR LOW (ENTERIC COATED) 81 MG PO (08:12)
[2025-01-13] MEDS: MIRALAX 17 GRAMS PO (08:12)
[2025-01-13] MEDS: COLACE 100 MG PO ×2 (08:12→20:32)
[2025-01-13] MEDS: FARXIGA 10 MG PO (08:12)
[2025-01-13] MEDS: BUMEX 2 MG PO (08:21)
[2025-01-13] MEDS: COREG 12.5 MG PO ×2 (08:21→20:32)
--- NOTE | 2025-01-13 09:03 | CM ---
CM reviewed chart. [facility] w[facility]CP. Cards following.
Pt has no skilled needs noted at this time.
CO's at bedside to transport at tx.
CM/SW will continue to follow to ensure a safe and timely discharge.
[2025-01-13 11:32] VITALS: BP 119/76
--- NOTE | 2025-01-13 11:47 | W.PN.HOSP.TC ---
Today's Communication/Plan
-
Continue cardiac regimen
Continue with bowel regimen and patient permits enema today
Obtain CT of the abdomen pelvis for left upper quadrant pain.
Assessment / Plan
Assessment / Plan
# Chest pain-no evidence of DE but clinical concern for cardiac pain due to his risk factors.
#Recurrent chest pain unclear etiology
# History of prior DE
- Troponin indeterminate. Repeat troponins negative
- EKG shows ventricular paced rhythm
- Additional info as per road gang supervisor-prior cardiac catheterization 2018 showed no CAD. 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
- Continue with aspirin and statins. He is also on beta-demond and Xarelto.
- Today his pain is more focused in the left upper quadrant area. He is also constipated. Will obtain a CT of the abdomen pelvis to evaluate further. Patient currently on bowel regimen. Declined Dulcolax suppository. Asked him to consider enema.
Chronic heart failure with reduced EF with ICD
Repeat echo 01/11 shows EF of 20 to 25%.
Clinically no signs of acute heart failure
- Continue Bumex
- Continue Coreg
- Continue with SGLT2 antagonist.
Patient did not tolerate Entresto in the past. Losartan and spironolactone introduced by cardiology on this admission
Paroxysmal atrial fibrillation
- Continue Xarelto
Essential hypertension plan continue the current medication
History of CVA-continue with anticoagulation
Type 2 diabetes
- Continue Jardiance
- On Mounjaro
- Insulin sliding scale
Hypokalemia -replete
Anxiety
Full code
DVT prophylaxis�Xarelto
Cardiac diet
Discussed with RN
Portions of this chart may have been created with voice recognition software. Occasional wrong word or 'sound alike' substitutions may have occurred due to the inherent limitations of voice recognition software.
Anticipated Discharge: 24 - 48 hours
Subjective/Interval History
-
Date of Service: January 13, 2025
Complains of left sided lower chest and upper abdominal pain. Points towards the left upper abdomen area. No nausea but still constipated. No aggravating relieving factors. Requiring IV Dilaudid.
No shortness of breath.
Objective Data
-
Labs:
Laboratory Results
01/13/25
04:58
Sodium 139
Potassium 3.4 L
Chloride 105
Carbon Dioxide 27
BUN 14
Creatinine 0.9
Glucose 101 H
Calcium 9.0
Vital Signs:
Vital Signs
Temp Pulse Resp BP Pulse Ox
97.6 F 72 22 119/76 98
01/13/25 11:32 01/13/25 11:32 01/13/25 11:32 01/13/25 11:32 01/13/25 11:32
I&O
01/12/25 01/13/25 01/14/25
06:59 06:59 06:59
Intake Total 730 / 730 450 / 450 150 / 150
Output Total 500 / 500 400 / 400
Balance 230 / 230 50 / 50 150 / 150
Physical Exam
-
General: No Apparent Distress
Respiratory: Clear to Auscultation and Non Labored Respirations; Negative Accessory Resp Muscle Use
Cardiac: Regular Rhythm and S1/S2; Negative Tachycardic
GI: Soft, Nondistended and Normal Bowel Sounds; Negative Tender (LUQ area without rebound or guarding)
Neuro: AO x 3
Data Reviewed
-
Labs: Labs Reviewed by me
[2025-01-13 12:09] LABS: Glucose - Point of Care 131 mg/dl (70-99)
[2025-01-13] MEDS: OMNIPAQUE 50 ML PO (12:41)
[2025-01-13] MEDS: KCL 20 MEQ PO (12:48)
[2025-01-13 15:13] VITALS: BP 145/86
[2025-01-13 17:29] LABS: Glucose - Point of Care 118 mg/dl (70-99)
[2025-01-13] MEDS: ZOFRAN 4 MG IV (17:30)
[2025-01-13] MEDS: XARELTO 20 MG PO (17:31)
[2025-01-13 19:50] VITALS: BP 114/72
[2025-01-13 20:08] VITALS: BP 114/72
[2025-01-13] MEDS: MELATONIN 3 MG PO (20:32)
[2025-01-13] MEDS: DESYREL 12.5 MG PO (20:32)
[2025-01-13 21:21] LABS: Glucose - Point of Care 170 mg/dl (70-99)
[2025-01-13 23:15] VITALS: BP 118/73
[2025-01-14] MEDS: VALIUM 2 MG PO (00:15)
[2025-01-14 03:24] VITALS: BP 136/78
[2025-01-14 06:00] VITALS: BMI 29.8
[2025-01-14 07:00] VITALS: BP 134/83
[2025-01-14] MEDS: NOVOLOG FLEXPEN-LOW RESISTANCE SC ×3 (08:00→12:44)
[2025-01-14] MEDS: MIRALAX 17 GRAMS PO (09:10)
[2025-01-14] MEDS: LIPITOR 40 MG PO (09:16)
[2025-01-14] MEDS: BUMEX 2 MG PO (09:16)
[2025-01-14] MEDS: FARXIGA 10 MG PO (09:17)
[2025-01-14] MEDS: ASPIR LOW (ENTERIC COATED) 81 MG PO (09:17)
[2025-01-14] MEDS: COLACE 100 MG PO ×2 (09:17→20:28)
[2025-01-14] MEDS: COREG 12.5 MG PO ×2 (09:20→20:28)
[2025-01-14 11:04] VITALS: BP 114/74
[2025-01-14] MEDS: XANAX 0.25 MG PO ×2 (11:20→20:28)
[2025-01-14] MEDS: CITROMA 300 ML PO (11:20)
[2025-01-14] MEDS: LEXAPRO 10 MG PO (11:20)
--- NOTE | 2025-01-14 11:37 | W.PN.CARDCBS ---
Addendum entered and electronically signed by Bear Sapp DO 01/14/25 14:06:
I saw and examined the patient.
The Retail Sales Manager's note was reviewed and I agree with the note.
Comment:
Plan:
Given worsening CM and cv risk factors, mild trop peak 0.041 and symptoms, check Lexiscan MIBI AM
Cont GDMT for NICM
Cont Coreg and Farxiga, hx of intolerance to ACEI/ARB in the past.
Outpt cardiac follow up with his outside leather heel breaster.
Original Note:
Today's Communication / Plan
-
Lexiscan nuclear stress test 01/15/2025
N.p.o. after midnight
CMP 01/15/2025
Continue GDMT for NICM
Impression / Plan
-
Primary Cardiology provider: Sailaja RIV[facility], [place]
Assessment:
Presentation with CP
Elevated troponin
Nonischemic cardiomyopathy, EF as low as 18% in past, 36% by echo 06/2023
History of [employer]AL-D
Chronic heart failure with reduced EF
Permanent atrial fibrillation
Chronic Xarelto therapy
Diabetes
CKD
History of CVA
History of bariatric surgery in 2021
GLENIS
ECHO 06/2023 OSH: EF 36%
Echo 01/11/2025: EF 20 to 25% with severe global hypokinesis with inferoseptal wall appearing to be hypokinetic. Mildly dilated left ventricle. Mild concentric LVH. No left atrial appendage thrombus. Grade 3 DD. Moderately dilated left atrium.
No significant valve disease
Plan:
- Patient presented 01/11/2025 with episode of chest discomfort and shortness of breath. He was detained/arrested 01/10 and reportedly symptoms started when he was put in his cell with associated anxiety.
- Initial troponin was peak of 0.041, followed by 0.025, 0.033 then trended back down. Was given sublingual nitro with relief. Presently pain improving after Dilaudid
- EKG V paced
- Known non-ischemic cardiomyopathy with diminished ejection fraction. EF appears to have deteriorated further now 20 to 25% with global hypokinesis and inferoseptal hypokinesis. Given these findings we will proceed with ischemic evaluation in
form of Lexiscan nuclear stress test on 01/15/2025
- continue asa, statin
-Given ASA, Statin, Coreg, Farxiga, Aldactone for known CM. he has history of intolerance to magy/arb/arni in past with significant dizziness/lightheadedness
- Permanent atrial fibrillation with controlled ventricular response/paced beats. Continue Xarelto
- Check CMP in a.m.
- Discussed with nursing and hospitalist team
- Will need outpatient cardiology follow-up with CCP
History of Present Illness:
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
reduced EF, atrial fibrillation on chronic Xarelto, diabetes, CKD, history of CVA, bariatric surgery 2021, GLENIS who presents to [facility] due to complaints of chest discomfort, shortness of breath and diaphoresis which started around 1600 yesterday. Of
note he also reports a history of an ID in 2012, however by my review of records obtained this far this is not listed in his history. He was reportedly detained yesterday and taken to [facility]. He states he was put in his
senior living cell and states he became very anxious. He has a history of anxiety but is not taking medication for this. He was given 2 sublingual nitro with improvement in symptoms. Initial troponin 0.041 and downtrending. No present chest pain.
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
Subjective
Date of Service: January 14, 2025
Patient seen and examined. Patient resting comfortably in bed. Notes rare chest discomfort but now having constipation and intermittent upper left quadrant discomfort.
Objective
Labs:
01/11/25 05:34
01/13/25 04:58
Labs
Hgb 14.6 g/dL (13.0-18.0) 01/11/25 05:34
Hct 40.9 % (39.0-52.0) 01/11/25 05:34
Plt Count 164 10^3/uL (130-400) 01/11/25 05:34
APTT 133.8 Sec (23.4-35.0) H 01/11/25 11:37
Sodium 139 mmol/L (135-145) 01/13/25 04:58
Potassium 3.4 mmol/L (3.5-5.1) L 01/13/25 04:58
BUN 14 mg/dl (9-20) 01/13/25 04:58
Creatinine 0.9 mg/dL (0.7-1.3) 01/13/25 04:58
Glucose 101 mg/dl (70-99) H 01/13/25 04:58
Troponins
01/11/25 01/12/25 01/12/25
11:38 00:20 11:49
Troponin I 0.023 D 0.018 0.022
01/12/25
17:45
Troponin I 0.015 D
Vital Signs and I&O:
Vital Signs
Temp Pulse Resp BP Pulse Ox
97.9 F 70 16 114/74 96
01/14/25 11:04 01/14/25 11:04 01/14/25 11:04 01/14/25 11:04 01/14/25 11:04
Vital Signs
Temp Pulse Resp BP Pulse Ox
97.9 F 70 16 114/74 96
01/14/25 11:04 01/14/25 11:04 01/14/25 11:04 01/14/25 11:04 01/14/25 11:04
Intake & Output
01/12/25 01/13/25 01/14/2501/15/25
06:59 06:59 06:59 06:59
Intake Total 730 / 730 450 / 450 750 / 750
Output Total 500 / 500 400 / 400
Balance 230 / 230 50 / 50 750 / 750
Physical Exam
Physical Exam
GEN: No distress, awake, Ox3, sitting in bed
HEENT: supple, anicteric, mmm
LUNGS: CTA, no wheezes/rales
CV: Reg, S1/S2, no murmur, rub or gallop
ABD: soft, BS+, nondistended, left upper quadrant tenderness
EXT: No edema, clubbing or cyanosis
NEURO: Gross non-focal
SKIN: No rash
[2025-01-14 12:44] LABS: Glucose - Point of Care 137 mg/dl (70-99)
--- NOTE | 2025-01-14 14:12 | W.PN.HOSP.TC ---
Addendum entered and electronically signed by Adam Jeffries DO 01/14/25 16:09:
Diagnosis correction:
Permanent atrial fibrillation (not paroxysmal)
Original Note:
Today's Communication/Plan
-
Assessment / Plan
Assessment / Plan
General: No Apparent Distress, Comfortable and Conversant, in law enforcement custody
HEENT: NormoCephalic, Moist mucous membranes, Atraumatic
Respiratory: Clear and Non Labored Respirations
Cardiac: S1/S2 and Regular Rhythm; No Rub or Gallop
GI: Soft, mild LUQ TTP, Non Distended and Normal Bowel Sounds
Musculoskeletal: No Edema, no deformity
: NO Jonas
Neuro: Awake, Alert, Nonfocal/grossly intact
Psych: Calm and Intact Judgment/Insight
# Chest pain-no evidence of NC but clinical concern for cardiac pain due to his risk factors.
#Recurrent chest pain unclear etiology
# History of prior NC
- Troponin indeterminate. Repeat troponins negative
- EKG shows ventricular paced rhythm
- Additional info as per specialty therapist-prior cardiac catheterization 2018 showed no CAD. 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
- Continue with aspirin and statins. He is also on beta-demond and Xarelto.
- Currently his pain is more focused in the left upper quadrant area. CT imaging suggestive of passive hepatic venous congestion mild splenomegaly and evidence of prior injury or infarction punctate calcified posterior granuloma, and a moderate
amount of fecal material throughout the rectum which is mildly distended; patient currently on bowel regimen. Declined Dulcolax suppository. Asked him to consider enema.
- Cardiology planning stress test tomorrow 01/15
Chronic heart failure with reduced EF with ICD
Repeat echo 01/11 shows EF of 20 to 25%.
Clinically no signs of acute heart failure
- Continue oral Bumex
- Continue Coreg
- Continue with SGLT2 antagonist.
Patient did not tolerate Entresto in the past. Losartan and spironolactone introduced by cardiology on this admission
Paroxysmal atrial fibrillation
- Continue Xarelto
Essential hypertension plan continue the current medication
History of CVA-continue with anticoagulation
Type 2 diabetes
- Continue Jardiance
- On Mounjaro
- Insulin sliding scale
Hypokalemia -replete
Anxiety
Full code
DVT prophylaxis�Xarelto
Cardiac diet
Discussed with RN
Total time spent with patient care 53 minutes.
Anticipated Discharge: 24 - 48 hours
Subjective/Interval History
-
Date of Service: January 14, 2025
Patient was seen and examined at bedside this morning. Still experiencing left upper quadrant/left lower thoracic pain worse with inspiration.
Objective Data
-
Vital Signs:
Vital Signs
Temp Pulse Resp BP Pulse Ox
97.9 F 70 16 114/74 96
01/14/25 11:04 01/14/25 11:04 01/14/25 11:04 01/14/25 11:04 01/14/25 11:04
I&O
01/13/25 01/14/25 01/15/25
06:59 06:59 06:59
Intake Total 450 / 450 750 / 750
Output Total 400 / 400
Balance 50 / 50 750 / 750
Review of Systems
-
History Source: Patient
All other systems: Reviewed and negative
Abdomen/GI: Reports Abdominal Pain
Psych: Reports Anxious
Physical Exam
-
General: No Apparent Distress
[2025-01-14 15:15] VITALS: BP 119/78
--- NOTE | 2025-01-14 15:46 | PN.CDI ---
CDI
- -
CDI:
Physician Documentation Request
Admit Date: 01/10/25 20:55
Dear Doctor Mervin,
Please review the following and provide your response in the progress notes.
Clinical Indicators:
Pt admitted with chest pain work up ongoing
There is potentially conflicting documentation in the record regarding the type of atrial fibrillation.
Documented in progress notes 01/11-01/14, ' Paroxysmal atrial fibrillation Continue Xarelto..'
Cardiology note 01/12 &01/14, ' Permanent atrial fibrillation Chronic Xarelto therapy...'
Due to potentially conflicting documentation please provide further specificity regarding atrial fibrillation:
Permanent atrial fibrillation - when a decision has been made to accept the presence of AF and there is no further attempt to restore or maintain sinus rhythm
Paroxysmal atrial fibrillation - terminates spontaneously or with intervention within 7 days of onset
Other - please specify
Use of terms such as suspected, likely, concern for, or probable (associated with a specific diagnosis that is being evaluated, monitored, or treated as if it exists) are acceptable and can be coded in the inpatient setting, when documented at the
time of discharge.
Thank you,
Radha Malik RN
CDI Specialist
[place] [facility]
Please use your independent medical judgment in providing your response.
--- NOTE | 2025-01-14 16:11 | PTCARENOTE ---
Assumed care of pt from previous nurse. Pt c/o anxiety, TT to Dr. Shakeel Morton, pablo and prn for anxiety ordered, pt reports decrease in anxiety. Pt call ibrahim is within reach, pt rings tatiana, guards at bedside. Will cont to monitor.
[2025-01-14 17:06] LABS: Glucose - Point of Care 152 mg/dl (70-99)
[2025-01-14] MEDS: NOVOLOG FLEXPEN-LOW RESISTANCE 1 UNITS SC (17:17)
[2025-01-14] MEDS: XARELTO 20 MG PO (17:18)
[2025-01-14 19:11] VITALS: BP 122/75
[2025-01-14] MEDS: ULTRAM 50 MG PO (20:46)
[2025-01-14 21:48] LABS: Glucose - Point of Care 159 mg/dl (70-99)
[2025-01-14] MEDS: DESYREL 12.5 MG PO (21:57)
[2025-01-14] MEDS: MELATONIN 3 MG PO (21:57)
[2025-01-14] MEDS: DILAUDID 0.5 MG IV (22:04)
[2025-01-14 23:16] VITALS: BP 112/70
[2025-01-15 03:27] VITALS: BP 112/66
[2025-01-15 06:00] VITALS: BMI 29.5
[2025-01-15 06:32] LABS: Glucose - Point of Care 92 mg/dl (70-99)
[2025-01-15 07:25] VITALS: BP 113/72
[2025-01-15 08:15] LABS: Hematocrit 46.6 % (39.0-52.0); Hemoglobin 16.1 g/dL (13.0-18.0); Mean Corp Hgb Conc. 34.5 g/dL (33.0-37.0); Mean Corpuscular Volume 87.1 fL (80.0-94.0); Nucleated Red Blood Cells % 0 % (-); Platelet Count 173 10^3/uL (130-400); Red Cell Dist. Width 11.9 % (11.5-14.5)
[2025-01-15] MEDS: LEXISCAN 0.4 MG IV (09:25)
[2025-01-15 10:52] LABS: Blood Urea Nitrogen 15 mg/dl (9-20); Calcium 9.2 mg/dl (8.4-10.2); Carbon Dioxide 29 mmol/L (22-30); Chloride 101 mmol/L (98-107); Estimated Creatinine Clearance 87 ml/min; Glucose 90 mg/dl (70-99); Potassium 3.9 mmol/L (3.5-5.1); Sodium 139 mmol/L (135-145); eGFR > 60.00
[2025-01-15] MEDS: LIPITOR 40 MG PO (10:59)
[2025-01-15] MEDS: MIRALAX 17 GRAMS PO (10:59)
[2025-01-15] MEDS: COLACE 100 MG PO (11:00)
[2025-01-15] MEDS: FARXIGA 10 MG PO (11:00)
[2025-01-15] MEDS: BUMEX 2 MG PO (11:00)
[2025-01-15] MEDS: LEXAPRO 10 MG PO (11:01)
[2025-01-15] MEDS: COREG 12.5 MG PO (11:01)
[2025-01-15] MEDS: ASPIR LOW (ENTERIC COATED) 81 MG PO (11:01)
[2025-01-15 11:13] VITALS: BP 127/82
[2025-01-15] MEDS: XANAX 0.25 MG PO (11:13)
--- NOTE | 2025-01-15 11:23 | PTCARENOTE ---
pt left for nuclear med at 0730 and did not get a chance to take morning medications. Pt took them when he returned @ 11am.
--- NOTE | 2025-01-15 11:39 | W.PN.CARDCBS ---
Addendum entered and electronically signed by Sandee Huff PA-C 01/15/25 14:17:
Lexiscan nuclear stress test shows no evidence of ischemia. Patient stable from cardiac standpoint for discharge. He follows with comprehensive cardiology at [facility]. Follow-up should be scheduled with them.
Addendum entered and electronically signed by Ryan Lewis MD 01/15/25 12:29:
I saw and examined the patient.
The COIN MACHINE SERVICER REPAIRER or PA's note was reviewed and I agree with the note.
Comment: General: Well developed, well nourished in NAD.
Neck: Supple, no JVD, HJR, carotids +2 B/L, no bruits bilaterally.
Heart: Non displaced PMI, RRR, no murmurs, No S3, S4, no rubs.
Lungs: Scattered rhonchi
Extremities: No clubbing, cyanosis or edema bilaterally.
Neuro: Grossly nonfocal, awake, alert and oriented x3.
Await Lexiscan sestamibi stress test results. If okay will be stable for discharge
Original Note:
Today's Communication / Plan
-
Lexiscan nuclear stress test today, results pending
Replete potassium
Continue GDMT
Impression / Plan
-
Primary Cardiology provider: Sailaja RIVAS [facility], [place]
Assessment:
Presentation with CP
Elevated troponin
Nonischemic cardiomyopathy, EF as low as 18% in past, 36% by echo 06/2023
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
Chronic heart failure with reduced EF
Permanent atrial fibrillation
Chronic Xarelto therapy
Diabetes
CKD
History of CVA
History of bariatric surgery in 2021
GLENIS
ECHO 06/2023 OSH: EF 36%
Echo 01/11/2025: EF 20 to 25% with severe global hypokinesis with inferoseptal wall appearing to be hypokinetic. Mildly dilated left ventricle. Mild concentric LVH. No left atrial appendage thrombus. Grade 3 DD. Moderately dilated left atrium.
No significant valve disease
Plan:
- Patient presented 01/11/2025 with episode of chest discomfort and shortness of breath. He was detained/arrested 01/10 and reportedly symptoms started when he was put in his cell with associated anxiety.
- Initial troponin was peak of 0.041, followed by 0.025, 0.033 then trended back down. Was given sublingual nitro with relief. Presently chest pain free with Ventricular paced ECG
- Known non-ischemic cardiomyopathy with diminished ejection fraction. EF appears to have deteriorated further now 20 to 25% with global hypokinesis and inferoseptal hypokinesis.
-Lexiscan nuclear stress test performed today (01/15/2025) - results pending
- Continue ASA, Statin, Coreg, Farxiga, Aldactone for known CM. He has history of intolerance to magy/arb/arni in past with significant dizziness/lightheadedness
- Permanent atrial fibrillation with controlled ventricular response/paced beats. Continue Xarelto
- K+ 3.9 will replete.
- Still some left upper quadrant pain worse with inspiration and foods like coffee. Pain was not worsened during stress test. Possibly GI or musculoskeletal. Await results of stress test but does not appear to be cardiac.
- Discussed with nursing and hospitalist team
- Will need outpatient cardiology follow-up with [facility]
History of Present Illness:
Patient is a 59-year-old male with past medical history of nonischemic cardiomyopathy with EF most recently 36% by echo June 2023 (required inotropic therapy with milrinone for a year, stopped 06/2020), history of DERMATOLOGY PROCEDURAL PHYSICIAN-D, heart failure with
reduced EF, atrial fibrillation on chronic Xarelto, diabetes, CKD, history of CVA, bariatric surgery 2021, GLENIS who presents to [facility] due to complaints of chest discomfort, shortness of breath and diaphoresis which started around 1600 yesterday. Of
note he also reports a history of an AR in 2012, however by my review of records obtained this far this is not listed in his history. He was reportedly detained yesterday and [facility] to [facility]. He states he was put in his
halfway cell and states he became very anxious. He has a history of anxiety but is not taking medication for this. He was given 2 sublingual nitro with improvement in symptoms. Initial troponin 0.041 and downtrending. No present chest pain.
Progress Note - Communications Scientist
Subjective
Date of Service: January 15, 2025
Patient seen and examined sitting in bed eating breakfast. Still notes some mild left upper quadrant sharp discomfort with taking deep breaths. Admits he gets worse with coffee but denies chest pain or shortness of breath
Objective
Labs:
01/15/25 07:16
01/15/25 07:16
Labs
Hgb 16.1 g/dL (13.0-18.0) 01/15/25 07:16
Hct 46.6 % (39.0-52.0) 01/15/25 07:16
Plt Count 173 10^3/uL (130-400) 01/15/25 07:16
APTT 133.8 Sec (23.4-35.0) H 01/11/25 11:37
Sodium 139 mmol/L (135-145) 01/15/25 07:16
Potassium 3.9 mmol/L (3.5-5.1) 01/15/25 07:16
BUN 15 mg/dl (9-20) 01/15/25 07:16
Creatinine 1.0 mg/dL (0.7-1.3) 01/15/25 07:16
Glucose 90 mg/dl (70-99) 01/15/25 07:16
Troponins
01/12/25 01/12/25
11:49 17:45
Troponin I 0.022 0.015 D
Vital Signs and I&O:
Vital Signs
Temp Pulse Resp BP Pulse Ox
97.3 F 72 18 127/82 95
01/15/25 11:13 01/15/25 11:13 01/15/25 11:13 01/15/25 11:13 01/15/25 11:13
Vital Signs
Temp Pulse Resp BP Pulse Ox
97.3 F 72 18 127/82 95
01/15/25 11:13 01/15/25 11:13 01/15/25 11:13 01/15/25 11:13 01/15/25 11:13
Intake & Output
01/13/25 01/14/25 01/15/25 01/16/25
06:59 06:59 06:59 06:59
Intake Total 450 / 450 750 / 750 720 / 720
Output Total 400 / 400
Balance 50 / 50 750 / 750 720 / 720
Physical Exam
Physical Exam
GEN: No distress, awake, Ox3, sitting in bed
HEENT: supple, anicteric, mmm
LUNGS: CTA, no wheezes/rales
CV: Reg, S1/S2, no murmur, rub or gallop
ABD: soft, BS+, nondistended, left upper quadrant tenderness
EXT: No edema, clubbing or cyanosis
NEURO: Gross non-focal
SKIN: No rash, warm, dry, pink
[2025-01-15 11:44] LABS: Glucose - Point of Care 148 mg/dl (70-99)
[2025-01-15] MEDS: KCL 20 MEQ PO (12:12)
--- NOTE | 2025-01-15 12:39 | CM ---
CM reviewed chart, possible dc today pending cardio clearance
Pt remains under custody and plan for return to [facility] via [facility] on dc
Discharge Disposition- return [facility]
Phone- [phone] Fax- [phone]
--- NOTE | 2025-01-15 12:40 | W.PN.HOSP.TC ---
Today's Communication/Plan
-
Assessment / Plan
Assessment / Plan
General: No Apparent Distress, Comfortable and Conversant, in law enforcement custody
HEENT: NormoCephalic, Moist mucous membranes, Atraumatic
Respiratory: Clear and Non Labored Respirations
Cardiac: S1/S2 and Regular Rhythm; No Rub or Gallop
GI: Soft, mild LUQ TTP, Non Distended and Normal Bowel Sounds
Musculoskeletal: No Edema, no deformity
: NO Jonas
Neuro: Awake, Alert, Nonfocal/grossly intact
Psych: Calm and Intact Judgment/Insight
# Chest pain-no evidence of MT but clinical concern for cardiac pain due to his risk factors.
#Recurrent chest pain unclear etiology
# History of prior MT
- Troponin indeterminate. Repeat troponins negative
- EKG shows ventricular paced rhythm
- Additional info as per inspection manager-prior cardiac catheterization 2018 showed no CAD. 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
- Continue with aspirin and statins. He is also on beta-demond and Xarelto.
- Currently his pain is more focused in the left upper quadrant area. CT imaging suggestive of passive hepatic venous congestion mild splenomegaly and evidence of prior injury or infarction punctate calcified posterior granuloma, and a moderate
amount of fecal material throughout the rectum which is mildly distended; patient currently on bowel regimen. Declined Dulcolax suppository. Asked him to consider enema.
- Underwent stress test this morning 01/15, results pending
Chronic heart failure with reduced EF with ICD
Repeat echo 01/11 shows EF of 20 to 25%.
Clinically no signs of acute heart failure
- Continue oral Bumex
- Continue Coreg
- Continue with SGLT2 antagonist.
- Patient did not tolerate Entresto in the past.
- Losartan and spironolactone introduced by cardiology on this admission
Paroxysmal atrial fibrillation
- Continue Xarelto
Essential hypertension plan continue the current medication
History of CVA-continue with anticoagulation
Type 2 diabetes
- Continue Jardiance
- On Mounjaro
- Insulin sliding scale
Hypokalemia -replete
Anxiety
Full code
DVT prophylaxis�Xarelto
Cardiac diet
Discussed with RN
Total time spent with patient care 53 minutes.
Anticipated Discharge: 24 - 48 hours
Subjective/Interval History
-
Date of Service: January 15, 2025
Patient was seen and examined at bedside this morning. Stress test completed and results pending. Still has tenderness to palpation left upper quadrant/left lower ribs.
Objective Data
-
Labs:
Laboratory Results
01/15/25
07:16
WBC 5.8
Hgb 16.1
Hct 46.6
Plt Count 173
Sodium 139
Potassium 3.9
Chloride 101
Carbon Dioxide 29
BUN 15
Creatinine 1.0
Glucose 90
Calcium 9.2
Vital Signs:
Vital Signs
Temp Pulse Resp BP Pulse Ox
97.3 F 72 18 127/82 95
01/15/25 11:13 01/15/25 11:13 01/15/25 11:13 01/15/25 11:13 01/15/25 11:13
I&O
01/14/25 01/15/25 01/16/25
06:59 06:59 06:59
Intake Total 750 / 750 720 / 720
Balance 750 / 750 720 / 720
Review of Systems
-
History Source: Patient
All other systems: Reviewed and negative
Abdomen/GI: Reports Abdominal Pain
Physical Exam
-
General: No Apparent Distress
[2025-01-15] MEDS: LIDOCAINE 4% PATCH 1 PATCH TOPICAL (14:29)
--- NOTE | 2025-01-15 14:42 | W.DCSUMMARY ---
Discharge Summary
Discharge Data
Date of Admission: 01/10/25
Date of Discharge: 01/15/25
Total time spent discharging patient (in min): 57
-
Pending Results: No
Hospital Course
Mr. Dodd is a 59-year-old male with medical history of CAD (prior CT), HFrEF (, ICD in place), permanent A-fib (on Xarelto), CVA, and [id number]-luljyyxqy diabetes mellitus who presented with chest pain. His troponins and EKG were
unremarkable however due to his significant cardiac history he was admitted for further evaluation and management. Imaging showed no acute abnormality but was suggestive of passive hepatic venous congestion, mild splenomegaly, constipation. He was
continued on a bowel regimen for his constipation. He was evaluated by cardiology and underwent stress testing which revealed no evidence of acute cardiac pathology. His left-sided chest/upper abdominal pain appears most likely musculoskeletal in
nature. He can continue Tylenol and NSAIDs as needed in addition to topical lidocaine. He will be continued on his home medications. He was started on low-dose escitalopram 10 mg daily for anxiety which will be continued at discharge. He will
need to follow-up with his primary care physician for refills and dosage adjustments as necessary. At time of hospital discharge he was medically stable.
General: No Apparent Distress, Comfortable and Conversant, in law enforcement custody
HEENT: NormoCephalic, Moist mucous membranes, Atraumatic
Respiratory: Clear and Non Labored Respirations
Cardiac: S1/S2 and Regular Rhythm; No Rub or Gallop
GI: Soft, mild LUQ TTP, Non Distended and Normal Bowel Sounds
Musculoskeletal: No Edema, no deformity
: NO Jonas
Neuro: Awake, Alert, Nonfocal/grossly intact
Psych: Calm and Intact Judgment/Insight
Discharge Plan
-
Patient Disposition: Usp
Discharge Diagnosis/Procedures: Chest pain, musculoskeletal
Activity Restrictions/Additional Instructions:
Mr. Dodd is a 59-year-old male with medical history of CAD (prior CT), HFrEF (, ICD in place), permanent A-fib (on Xarelto), CVA, and qsp-zledfwt-ivvwssmrc diabetes mellitus who presented with chest pain. His troponins and EKG were
unremarkable however due to his significant cardiac history he was admitted for further evaluation and management. Imaging showed no acute abnormality but was suggestive of passive hepatic venous congestion, mild splenomegaly, constipation. He was
continued on a bowel regimen for his constipation. He was evaluated by cardiology and underwent stress testing which revealed no evidence of acute cardiac pathology. His left-sided chest/upper abdominal pain appears most likely musculoskeletal in
nature. He can continue Tylenol and NSAIDs as needed in addition to topical lidocaine. He will be continued on his home medications. He was started on low-dose escitalopram 10 mg daily for anxiety which will be continued at discharge. He will
need to follow-up with his primary care physician for refills and dosage adjustments as necessary. At time of hospital discharge he was medically stable.
Referrals:
[facility]. [facility]ility [Family Provider, [facility]]
Prescriptions:
New
lidocaine 4 % Adhesive Patch,Medicated
1 patch topical DAILY Qty: 10 0RF
escitalopram oxalate 10 mg Tablet
10 mg PO DAILY Qty: 30 0RF
trazodone 50 mg Tablet
12.5 mg PO HS 30 Days Qty: 8 0RF
docusate sodium 100 mg Capsule
100 mg PO BID 30 Days Qty: 60 0RF
acetaminophen [Tylenol] 325 mg tablet
650 mg PO Q6H PRN (Reason: fever or pain) Qty: 30 0RF
Continued
atorvastatin [Lipitor] 40 mg Tablet
40 mg PO DAILY
carvedilol [Coreg] 12.5 mg Tablet
12.5 mg PO Q12H
bumetanide 2 mg Tablet
2 mg PO DAILY
aspirin 81 mg Tablet,Delayed Release (Dr/Ec)
81 mg PO DAILY
Xarelto 20 mg Tablet
20 mg PO DAILY
Jardiance 10 mg Tablet
10 mg PO DAILY
Mounjaro 5 mg/0.5 mL Pen Injector
5 mg SC QWEEK
Discharge Orders:
Discharge Patient (As Directed); Ordered 01/15/25
Ordered By: Adam Jeffries
Discharge Date and Time
Print Language: YORUBA
[2025-01-15 15:31] VITALS: BP 129/81
[2025-01-15 16:40] LABS: Glucose - Point of Care 131 mg/dl (70-99)
[2025-01-15] MEDS: XARELTO 20 MG PO (18:04)
--- NOTE | 2025-01-16 15:27 | W.PN.CARDCBS ---
Addendum entered and electronically signed by Bhupinder Swift MD 01/16/25 17:46:
I saw and examined the patient.
The Wildlife Conservation Professor's note was reviewed and I agree with the note.
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
chest discomfort.
Patient is currently incarcerated and was brought into [place] emergency department earlier this week for evaluation of chest discomfort
Initial troponin at that time was borderline positive 0.041 and downtrended
Echocardiogram with global hypokinesis left ventricular ejection fraction of 20 to 25%
Underwent pharmacologic nuclear stress test which did not show evidence of ischemia and patient was discharged
Earlier today he presented with recurrent chest discomfort. It does not seem that this was improved with sublingual nitro but patient did have some improvement with morphine.
Again troponin was borderline positive 0.040 and subsequently down trended. No need to trend further.
ECG is not overtly ischemic but difficult to interpret given ventricularly paced rhythm
Given recurrent chest discomfort will tentatively plan for invasive coronary angiography to more definitively assess for coronary disease as a cause of his symptoms
For now continue aspirin, high intensity statin and beta-demond
Continue GDMT for nonischemic cardiomyopathy�Coreg, Farxiga, losartan and Aldactone
Appears euvolemic on exam, would continue home Bumex 2 mg daily
Rest per Neida Montes
Original Note:
Today's Communication / Plan
-
hold xarelto. IV heparin to start tonight
plan for cardiac catheterization in AM. NPO after midnight
Impression / Plan
-
Primary Cardiology provider: Sailaja RIVAS of [facility], [place]
Assessment:
Presentation with CP
Elevated troponin
Nonischemic cardiomyopathy, EF as low as 18% in past, 36% by echo 06/2023, 20-25% by echo 01/11/25
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
Chronic heart failure with reduced EF, previously requiring milrinone and being considered for heart transplant, stopped in 2020
Permanent atrial fibrillation
Chronic Xarelto therapy
Diabetes
CKD
History of CVA
History of bariatric surgery in 2021
GLENIS
ECHO 06/2023 OSH: EF 36%
Echo 01/11/2025: EF 20 to 25% with severe global hypokinesis with inferoseptal wall appearing to be hypokinetic. Mildly dilated left ventricle. Mild concentric LVH. No left atrial appendage thrombus. Grade 3 DD. Moderately dilated left atrium.
No significant valve disease
Plan:
- Patient presented 01/11/2025 with episode of chest discomfort and shortness of breath. He was detained/arrested 01/10 and reportedly symptoms started when he was put in his cell with associated anxiety. Trop peaked at 0.041 and trended down. Stress
test with reduction from 36% in 2023 to 20 to 25%. Underwent Lexiscan nuclear stress test 01/15/2025 with fixed inferior and inferolateral defect most consistent with soft tissue attenuation, no reversibility noted to suggest ischemia, EF 30%. He
was discharged yesterday back to penit[facility]iary yesterday chest pain-free, however presents back today due to recurrence of chest pain. Reports sublingual nitro did not help his pain and dropped his pressure. Morphine did help. Initial troponin 0.036.
Denies drug use.
- Hold outpatient Xarelto. Start IV heparin this evening
- N.p.o. after midnight for cardiac catheterization in a.m. reviewed procedure with patient and he is agreeable to proceed
- Continue aspirin, statin
- Continue Coreg, Farxiga, Aldactone for new cardiomyopathy. He has history of intolerance to magy/arb/arni in past with significant dizziness/lightheadedness
- Discussed with hospitalist. Guards present at bedside
History of Present Illness:
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
reduced EF, atrial fibrillation on chronic Xarelto, diabetes, CKD, history of CVA, bariatric surgery 2021, GLENIS who presents to [facility] due to complaints of chest discomfort, shortness of breath and diaphoresis which started around 1600 yesterday. Of
note he also reports a history of an NV in 2012, however by my review of records obtained this far this is not listed in his history. He was reportedly detained yesterday and taken to [facility]. He states he was put in his
[facility] cell and states he became very anxious. He has a history of anxiety but is not taking medication for this. He was given 2 sublingual nitro with improvement in symptoms. Initial troponin 0.041 and downtrending. No present chest pain.
Progress Note - Legal Director
Subjective
Date of Service: January 16, 2025
reports chest discomfort, left sided.
Objective
Labs:
01/15/25 07:16
01/15/25 07:16
Labs
Hgb 16.1 g/dL (13.0-18.0) 01/15/25 07:16
Hct 46.6 % (39.0-52.0) 01/15/25 07:16
Plt Count 173 10^3/uL (130-400) 01/15/25 07:16
APTT 133.8 Sec (23.4-35.0) H 01/11/25 11:37
Sodium 139 mmol/L (135-145) 01/15/25 07:16
Potassium 3.9 mmol/L (3.5-5.1) 01/15/25 07:16
BUN 15 mg/dl (9-20) 01/15/25 07:16
Creatinine 1.0 mg/dL (0.7-1.3) 01/15/25 07:16
Glucose 90 mg/dl (70-99) 01/15/25 07:16
Vital Signs and I&O:
Vital Signs
Temp Pulse Resp BP Pulse Ox
97.4 F 72 18 129/81 95
01/15/25 15:31 01/15/25 15:31 01/15/25 15:31 01/15/25 15:31 01/15/25 11:13
Vital Signs
Temp Pulse Resp BP Pulse Ox
97.4 F 72 18 129/81 95
01/15/25 15:31 01/15/25 15:31 01/15/25 15:31 01/15/25 15:31 01/15/25 11:13
Intake & Output
01/14/25 01/15/25 01/16/25 01/17/25
07:59 07:59 07:59 07:59
Intake Total 750 / 750 720 / 720
Balance 750 / 750 720 / 720
Physical Exam
Physical Exam
GEN: No distress, lethargic, awakened with marked verbal stimulus. reports pain with awakening
HEENT: supple, anicteric, mmm
LUNGS: CTA B/L, no wheezes/rales
CV: Reg, S1/S2, no murmur
ABD: soft, BS+, NT/ND
EXT: No cyanosis, clubbing, edema
NEURO: Gross non-focal
SKIN: Warm, pink, dry. No rash
== END 2025-01-15 19:11 | DRG 313 ==
LOC: 4 WEST ACU 20:55
PROVIDERS: Emergency Medicine; Internal Medicine; Internal Medicine Cardiovascular Disease; Nurse Practitioner Gerontology; ADMITTING PHYSICIAN Hospitalist; ATTENDING PHYSICIAN Internal Medicine; EMERGENCY PHYSICIAN Emergency Medicine; OTHER PHYSICIAN Internal Medicine Cardiovascular Disease
PROC: 4B02XTZ Measurement of Cardiac Defibrillator, External Approach (ICD-10-PCS; 2025-01-11)
PROC: 3E033HZ Introduction of Radioactive Substance into Peripheral Vein, Percutaneous Approach (ICD-10-PCS; 2025-01-15)
PROC: 4A02XM4 Measurement of Cardiac Total Activity, External Approach (ICD-10-PCS; 2025-01-15)
DX: R07.89 Other chest pain (principal); I50.22 Chronic systolic (congestive) heart failure; I13.0 Hypertensive heart and chronic kidney disease with heart failure and stage 1 through stage 4 chronic kidney disease, or unspecified chronic kidney disease; I48.21 Permanent atrial fibrillation; I42.8 Other cardiomyopathies; I25.10 Atherosclerotic heart disease of native coronary artery without angina pectoris; F41.9 Anxiety disorder, unspecified; E11.22 Type 2 diabetes mellitus with diabetic chronic kidney disease; G47.33 Obstructive sleep apnea (adult) (pediatric); N18.9 Chronic kidney disease, unspecified; K59.00 Constipation, unspecified; E87.6 Hypokalemia; I25.2 Old myocardial infarction; Z79.899 Other long term (current) drug therapy; Z79.01 Long term (current) use of anticoagulants; Z79.82 Long term (current) use of aspirin; Z79.84 Long term (current) use of oral hypoglycemic drugs; Z79.85 Long-term (current) use of injectable non-insulin antidiabetic drugs; Z82.49 Family history of ischemic heart disease and other diseases of the circulatory system; Z86.73 Personal history of transient ischemic attack (TIA), and cerebral infarction without residual deficits; Z95.810 Presence of automatic (implantable) cardiac defibrillator
CPT/HCPCS: 74177; 78452; 80048; 80053; 82248; 82962; 83036; 83690; 83880; 84484; 85025; 85027; 85730; 87070; 93005; 93017; 93306; 96374; 96375; 99291; A9500; J2785; Q9950; Q9967

== ENCOUNTER 2025-01-16 15:28 | Inpatient (IN) | payer OTHER, SELFPAY ==
[2025-01-16] VITALS (9 sets, daily range): BP systolic 114–152; BP diastolic 65–102; BMI 30.3
--- NOTE | 2025-01-16 13:39 | ED.GENMED ---
History of Present Illness
General
Chief Complaint: Chest Pain
Time Seen by Provider: 01/16/25 13:23
History of Present Illness
History of Present Illness:
59-year-old male history of CAD, permanent atrial fibrillation on Xarelto, diabetes presenting with burning/sharp left upper quadrant abdominal pain/lower chest pain starting this afternoon. Patient states that he was laying in bed trying to go to
sleep when symptoms started with associated shortness of breath. Patient states pain is sometimes pleuritic. Patient he was discharged from [facility] yesterday after being evaluated for similar pain. Patient was given aspirin and 1 nitro, which
contrary to triage note, patient denies any improvement in pain with nitro to me. Patient denies numbness, weakness, tingling, or cough. Patient states he last had a bowel movement yesterday. No falls or trauma
Phy Exam
Physical Exam
Physical Exam:
General: Alert, uncomfortable appearing secondary to pain. not diaphoretic
Head: NCAT
Eyes: clear conjunctiva
Neck: supple
Cardiac: regular rate and rhythm, no murmur. 2+ equal radial and DP pulses bilaterally
Lungs: clear to auscultation bilaterally. No wheezes, rales, or rhonchi. Speaking full unlabored sentences. No respiratory distress.
Chest: reproducible left lower chest wall tenderness to palpation. no overlying rash
Abdomen: soft, nondistended intermittent tender in LUQ. No rebound or guarding.
MSK: no lower extremity edema bilaterally. No deformity
Skin: warm, dry
Neuro: Alert and oriented x3. no focal deficits
Scores
Heart Score for Chest Pain Patients
STEMI patient?: No
History: Slightly or Non-Suspicious
ECG: Nonspecific Repolarization
Age: >45 - <65 years
Risk Factors: >/= 3 Risk Factors or History of CAD
Troponin: >1 - <3 x Normal Limit
Heart Score for Chest Pain Patients: 5
Heart Score Risk: 20.3% MACE over next 6 weeks
Course
Orders/Labs/Results
Orders:
Orders
01/16/25 13:23
Electrocardiogram (*1) Urgent
Reason for Study: Chest Pain
01/16/25 13:24
EKG- Treatment ONCE
01/16/25 13:44
Complete Blood Count/With Diff Urgent
Comprehensive Metabolic Panel Urgent
DDimer [D-Dimer] Urgent
Lipase Urgent
Troponin I Urgent
01/16/25 13:49
Acetaminophen [Tylenol] 1,000 mg PO NOW STA
Lidocaine [Lidocaine 4% Patch] 1 patch TOPICAL ONCE ONE
Apply Lidocaine patch(s) to:: left lower chest/upper abdomen
01/16/25 14:23
Morphine Sulfate 4 mg IV NOW STA
01/16/25 15:00
Admit/Transfer Patient As Directed
Co-Sign Provider:
Level of Care: Inpatient admission
Assign to:: Telemetry
Physician / Group: Hospitalist: Mervin
Diagnosis: Chest Pain
Reason for Telemetry: Chest Pain syndromes
Date to Stop Telemetry: 01/18/25
Time to Stop Telemetry: 11:00
Reason for Hospitalization: Chest Pain
Expected length of stay greater than two midnights?: Yes
ELOS- Estimated Length of Stay in days: 2
I certify the patient meets the requirements for IP care: Yes
PRN Pain Medication Management As Directed
May give lesser potent ordered pain med per pt: Yes
preference::
Protocol:: Medication orders for pain may be administered in a
manner that supports deferring to patient preference
when the pt is:
- Requesting an ordered lesser potent pain medication.
Least to most potent pain medications are defined
as: acetaminophen < NSAID < tramadol < opioids
(morphine, oxycodone, hydromorphone).
- Requesting a lesser dose of the same medication IF
ORDERED.
- Requesting a less intrusive route of administration
if both routes are prescribed by the provider (PO <
IV).
01/16/25 15:01
Code Status As Directed
Resuscitation Status: Full Code
01/16/25 15:05
EKG- Treatment ONCE
01/16/25 15:07
Alprazolam [Xanax] 0.5 mg PO Q6HPRN PRN
01/16/25 15:13
Urine Drug Abuse Screen Routine
01/16/25 16:00
Flush (0.9% Sodium Chloride) [Flush (Nss)] See Dose Instructions IV PER PROTOCOL
01/16/25 16:45
Electrocardiogram (*1) Urgent
Reason for Study: Chest Pain
Troponin I Urgent
01/16/25 17:00
Troponin I Q6H
01/16/25 23:00
Troponin I Q6H
01/18/25 11:00
DC Protocol for Telemetry ONCE
Abnormal Lab Results
01/16/25
13:44
Absolute Lymphs (auto) 1.0 L 10^3/uL
(1.2-3.4)
Neutrophils % 75.6 H %
(42.2-75.2)
Lymphocytes % 13.8 L %
(20.5-51.1)
Glucose 133 H mg/dl
(70-99)
Total Bilirubin 3.9 H mg/dl
(0.2-1.3)
AST 65 H U/L
(17-59)
ALT 99 H U/L
(0-50)
Troponin I 0.036 H* ng/ml
01/16/25 13:44
01/16/25 13:44
Vital Signs
Initial and Last Documented VS:
Initial Vital Signs
Temp Pulse Resp BP Pulse Ox
98.0 F 70 25 127/84 100
01/16/25 13:28 01/16/25 13:28 01/16/25 13:28 01/16/25 13:28 01/16/25 13:28
Last Documented Vital Signs
Temp Pulse Resp BP Pulse Ox
98.0 F 70 13 127/84 100
01/16/25 13:28 01/16/25 13:45 01/16/25 13:45 01/16/25 13:31 01/16/25 13:52
MDM/Problems Addressed
Differential Diagnosis Includes:
NSTEMI, PE, musculoskeletal pain
MDM/Problems Addressed:
Labs reviewed, significant for ddimer within normal limits, low suspicion for PE. troponin 0.036 (previously 0.015 5 days ago, uptrending), AST 65 (previously 43 5 days ago), ALT 99 (previously 64 5 days ago).
On chart review, pt had CT abdomen/pelvis on 01/13 that showed:
1. Mild splenomegaly.
2. Moderate passive hepatic venous congestion in the liver.
3. Cholelithiasis.
4. Mild diverticulosis in the descending colon.
5. Moderate amount of fecal material in the rectum.
6. Small to moderate-sized fat-containing umbilical hernia.
7. Mildly enlarged prostate gland.
8. Mild chronic urinary bladder outlet obstruction.
9. Biventricular AICD in place.
10. Severe discogenic degenerative disease at L5/S1.
Given recent CT abdomen/pelvis with intermittent LUQ tenderness but no epigastric/RUQ tenderness, will hold on repeat imaging.
On reevaluation, patient reports no improvement in tylenol/lidocaine patch. Given no reported improvement with nitro and pt became hypotensive afterwards, will give morphine for pain control.
Discussed with cardiology
Discussed with hospitalist for admission
Discussed with patient who is agreeable for admission. Ordered repeat troponin/EKG
*Pulse Oximetry
SaO2: 100
Oxygen Mode of Delivery: Room air
Patient hypoxic: no
*EKG
Interpreted by ED Provider?: Yes (Ventricular- Paced rhythm at 70 bpm with QRS 172 QTc 546 no STEMI)
*Critical Care Note
Total Time (30-74mins, 75-104mins- exclusive of procedures): Not Applicable
Data Reviewed
Review of Other/Old Records Reveals: Records (Patient was seen and evaluated here in the emergency department on 01/10, admitted and seen by cardiology, underwent stress test that showed no acute cardiac pathology, thought likely be contributed to MSK
pain.)
ED Attending Note
-
Portions of this chart may have been created with voice recognition software.� Occasional wrong word or��sound alike� substitutions may have occurred due to the inherent limitations of voice recognition software.
Discharge Plan
Departure
Patient Disposition: Admit
Date of Disposition: 01/16/25
Time of Disposition: 14:55
Presentation/result/management discussed w/ accepting MD/DO: Hospitalist
Discharge Problem:
Chest pain
Interventions
Interventions:
*Risk Screen - Suicide Last Done: 01/16/25 13:28
*General Assessment Last Done: 01/16/25 13:28
*Neglect/Abuse Screening Last Done: 01/16/25 13:28
*ED- Fall Risk Assessment Last Done: 01/16/25 13:54
*ED COVID-19 Vaccine History Last Done: 01/16/25 13:54
ED- Cardiac Assessment Last Done: 01/16/25 13:52
[2025-01-16 13:56] LABS: Hematocrit 47.0 % (39.0-52.0); Hemoglobin 17.1 g/dL (13.0-18.0); Mean Corp Hgb Conc. 36.4 g/dL (33.0-37.0); Mean Corpuscular Volume 83.2 fL (80.0-94.0); Nucleated Red Blood Cells % 0 % (-); Platelet Count 201 10^3/uL (130-400); Red Cell Dist. Width 11.9 % (11.5-14.5)
[2025-01-16 14:06] LABS: D-Dimer < 0.27 ug/mlFEU (0.00-0.50)
[2025-01-16] MEDS: LIDOCAINE 4% PATCH 1 PATCH TOPICAL (14:10)
[2025-01-16] MEDS: TYLENOL 1000 MG PO (14:10)
[2025-01-16 14:16] LABS: ALT (SGPT) 99 U/L (0-50); AST (SGOT) 65 U/L (17-59); Albumin 4.9 g/dl (3.5-5.0); Alkaline Phosphatase 116 U/L (38-126); Blood Urea Nitrogen 20 mg/dl (9-20); Calcium 9.8 mg/dl (8.4-10.2); Carbon Dioxide 23 mmol/L (22-30); Chloride 100 mmol/L (98-107); Estimated Creatinine Clearance 89 ml/min; Glucose 133 mg/dl (70-99); Lipase 269 U/L (23-300); Potassium 4.3 mmol/L (3.5-5.1); Sodium 137 mmol/L (135-145); Total Protein 7.5 g/dl (6.3-8.2); eGFR > 60.00
[2025-01-16 14:21] LABS: Troponin I 0.036 ng/ml
[2025-01-16] MEDS: MORPHINE SULFATE 4 MG IV (14:29)
--- NOTE | 2025-01-16 15:06 | HPS.HSE ---
Family Physician
-
Family Physician: [facility] [place] [facility]
Chief Complaint
-
Chest pain
History of Present Illness
Mr. Dodd is a 59-year-old male with medical history of CAD (prior [facility]), HFrEF (20-25%, ICD in place), permanent A-fib (on Xarelto), CVA, and cwf-lcqkhfs-sdxmcdspi diabetes mellitus who presented with left-sided chest pain. He was discharged 1
day ago after evaluation for similar presentation (01/10 through 01/15). At the time of previous presentation he had initially elevated troponin of 0.041 which resolved within normal limits on repeat testing. He underwent ischemic evaluation with a
stress echocardiogram which revealed no evidence of inducible ischemia. Abdominal imaging showed passive hepatic congestion and cholelithiasis without cholecystitis and no common bile duct dilatation. His liver function tests were mildly elevated
at that time. He was subsequently discharged with outpatient follow-up. However his chest pain has since returned and has worsened. Lab work at the time of this presentation reveals a troponin of 0.036. EKG shows no acute changes. He was given
sublingual nitro by EMS with no significant improvement in his chest pain but it did decrease his blood pressure which has since recovered. His liver function tests remain mildly elevated, slightly worse than previous. He received some pain relief
with morphine. He has been admitted for further evaluation and management of his chest pain. Cardiology is tentatively planning left heart catheterization tomorrow. Of note, he reports having previously been evaluated for possible cardiac
transplant at [facility] but did not qualify at that time.
Medical History
Past Medical History
Past Medical History: Reports Other
Additional Past Medical History:
CAD (prior [facility]), HFrEF (20-25%, ICD in place), permanent A-fib (on Xarelto), CVA, and gyd-scbeeav-apbuxizwl diabetes mellitus
Past Surgical History: Reports None
Social History
Tobacco: Non-smoker
Alcohol: None
Drug: None
Living: Penitentiary
Family History
Family History: Not pertinent
Allergies / Home Medications
Allergies reflects when Allergies were last updated in [employer].
Home Medications with original date entered in [employer]
Allergy/Medication List:
Allergies
Allergy/AdvReac Type Severity Reaction Status Date / Time
No Known Allergies Allergy Verified 01/16/25 15:09
Home Medications
aspirin 81 mg tablet,delayed release 81 mg PO DAILY 01/10/25
atorvastatin 40 mg tablet (Lipitor) 40 mg PO DAILY 01/10/25
bumetanide 2 mg tablet 2 mg PO DAILY 01/10/25
carvedilol 12.5 mg tablet (Coreg) 12.5 mg PO Q12H 01/10/25
empagliflozin 10 mg tablet (Jardiance) 10 mg PO DAILY 01/10/25
rivaroxaban 20 mg tablet (Xarelto) 20 mg PO QPM 01/10/25
escitalopram oxalate 10 mg tablet 10 mg PO DAILY #30 tabs 01/15/25
acetaminophen 325 mg tablet (Tylenol) 650 mg PO TIDPRN PRN fever or pain 01/16/25
docusate sodium 100 mg capsule 100 mg PO BIDPRN PRN constipation 01/16/25
glipizide 5 mg tablet 5 mg PO DAILY 01/16/25
therapeutic multivitamin 1 tab PO DAILY 01/16/25
Review of Systems
-
History Source: Patient
A 12 point ROS was completed and negative except as noted: Yes
Cardiac: Reports Chest Pain
Physical Exam
Vital Signs
Vital Signs
Temp Pulse Resp BP Pulse Ox
98.0 F 70 13 127/84 100
01/16/25 13:28 01/16/25 13:45 01/16/25 13:45 01/16/25 13:31 01/16/25 13:52
Physical Exam
General: Pain (Chest pain)
Laboratory Results
-
01/16/25 13:44
01/16/25 13:44
Laboratory Results
Total Bilirubin 3.9 mg/dl (0.2-1.3) H 01/16/25 13:44
AST 65 U/L (17-59) H 01/16/25 13:44
ALT 99 U/L (0-50) H 01/16/25 13:44
Alkaline Phosphatase 116 U/L (38-126) 01/16/25 13:44
Troponin I 0.036 ng/ml H* 01/16/25 13:44
Lipase 269 U/L (23-300) 01/16/25 13:44
Impression/Plan
-
General: Appears uncomfortable secondary to chest pain, diaphoretic
HEENT: NormoCephalic, Moist mucous membranes, Atraumatic
Respiratory: Clear and Non Labored Respirations
Cardiac: S1/S2 and Regular Rhythm; No Rub or Gallop
GI: Soft, Non Tender, Non Distended and Normal Bowel Sounds
Musculoskeletal: No Edema, no deformity
Skin: Warm and dry
: NO Jonas
Neuro: Awake, Alert, Nonfocal/grossly intact
Psych: Calm and Intact Judgment/Insight
Mr. Dodd is a 59-year-old male with medical history of CAD (prior [facility]), dilated cardiomyopathy, combined systolic and diastolic heart failure (LVEF 20-25%, BiV ICD in place), permanent A-fib (on Xarelto), CVA, and bdf-fbskueh-anmuabvkb diabetes
mellitus who presented with left-sided chest pain. He was discharged 1 day ago after evaluation for similar presentation (01/10 through 01/15). At the time of previous presentation he had initially elevated troponin of 0.041 which resolved within
normal limits on repeat testing. He underwent ischemic evaluation with a stress echocardiogram which revealed no evidence of inducible ischemia. Abdominal imaging showed passive hepatic congestion and cholelithiasis without cholecystitis and no
common bile duct dilatation. His liver function tests were mildly elevated at that time. He was subsequently discharged with outpatient follow-up. However his chest pain has since returned and has worsened. Lab work at the time of this
presentation reveals a troponin of 0.036. EKG shows no acute changes. He was given sublingual nitro by EMS with no significant improvement in his chest pain but it did decrease his blood pressure which has since recovered. His liver function
tests remain mildly elevated, slightly worse than previous. He received some pain relief with morphine. He has been admitted for further evaluation and management of his chest pain. Cardiology is tentatively planning left heart catheterization
tomorrow. Of note, he reports having previously been evaluated for possible cardiac transplant at [facility] but did not qualify at that time.
Chest pain:
- N.p.o. after midnight for coronary angiography
- Pain control as needed
- Monitor on telemetry
- Trend troponins
- Will start IV heparin drip tonight after a 24-hour Xarelto washout
- Continue aspirin and statin
- Further recommendations per cardiology
Abnormal liver function tests:
- Suspect due to hepatic congestion in the setting of severely reduced ejection fraction
- Monitor LFTs, can pursue further imaging if LFTs dramatically rise
Combined systolic and diastolic heart failure:
- EF 20 to 25%, grade 3 diastolic dysfunction on echo 01/11/2025
- Does not appear volume overloaded currently
- Continue beta-demond with home carvedilol 12.5 mg twice daily
- Has not tolerated afterload reducing agents due to borderline hypotension
- Continue SGLT2 inhibitor and home p.o. Bumex 2 mg daily
Permanent A-fib:
- Currently rate controlled
- Continue beta-blockade with carvedilol
- Holding Xarelto for left heart catheterization, anticoagulating with IV heparin
NIDDM:
- Blood glucose currently well-controlled
- Holding home glipizide
- Accu-Cheks with sliding scale insulin as needed
DVT prophylaxis: Holding Xarelto for procedure, IV heparin
CODE STATUS: Full code
Total time spent on today's encounter was 65 minutes.
--- NOTE | 2025-01-16 16:27 | CM ---
CM reviewed chart, pt arrived to ED from [facility] with CP. Was just discharged from yesterday with same complaint.
Pt for Left heart catheterization tomorrow.
Correction Officers with pt and will transport back when medically cleared.
CM will continue to follow.
[2025-01-16 17:23] LABS: Troponin I 0.031 ng/ml
[2025-01-16 18:43] LABS: Glucose - Point of Care 162 mg/dl (70-99)
[2025-01-16] MEDS: NOVOLOG FLEXPEN-LOW RESISTANCE 1 UNITS SC (18:43)
[2025-01-16 18:56] LABS: Hematocrit 46.8 % (39.0-52.0); Hemoglobin 16.9 g/dL (13.0-18.0); Mean Corp Hgb Conc. 36.1 g/dL (33.0-37.0); Mean Corpuscular Volume 84.2 fL (80.0-94.0); Platelet Count 203 10^3/uL (130-400); Red Cell Dist. Width 11.9 % (11.5-14.5)
[2025-01-16 19:02] LABS: APTT 38.2 Sec (23.4-35.0)
[2025-01-16 19:14] LABS: Troponin I 0.031 ng/ml
[2025-01-16] MEDS: HEPARIN 25000 UNITS/250 ML IV (19:22)
[2025-01-16] MEDS: MORPHINE SULFATE 2 MG IV ×2 (20:12→20:33)
[2025-01-16] MEDS: COREG PO ×2 (20:14→20:52)
[2025-01-16] MEDS: XANAX 0.5 MG PO (20:32)
--- NOTE | 2025-01-16 20:32 | W.PN.UPDATE ---
Update Note
Progress Note Update
chest pain
2mg of morphine
[2025-01-16] MEDS: NITROSTAT (SUBLINGUAL) 0.4 MG SL ×2 (20:50→21:15)
[2025-01-16 21:05] LABS: Glucose - Point of Care 159 mg/dl (70-99)
[2025-01-16 21:15] LABS: Troponin I 0.033 ng/ml
--- NOTE | 2025-01-16 23:21 | PTCARENOTE ---
at 2014 pt with complaint of chest pain, slightly worse than admission. Pt was given 2mg IV Morphine per prn orders and Marycruz RIVAS was made aware. She came to the bedside. EKG was obtained and stat troponin sent which resulted at
0.033.Pt continued with pain despite the morphine. MED ADMIN ordered a second dose of 2mg IV Morphine and had RN give the prn xanax. Pt's pain continued. Nitro SL was given at 2049 and 2114. Pt then had relief from the pain. Pt was also placed on 2L of
oxygen during this time. Heparin drip remained at 1000 units/hr. at 2199 pt rated pain 5/10 and verbalized that he felt much better. per EVELYN 2299 troponin was cancelled as it was done early.
[2025-01-17] VITALS (13 sets, daily range): BP systolic 112–139; BP diastolic 62–87; BMI 29.8
[2025-01-17 02:10] LABS: APTT 58.6 Sec (23.4-35.0)
[2025-01-17 07:28] LABS: Glucose - Point of Care 117 mg/dl (70-99)
[2025-01-17] MEDS: MORPHINE SULFATE 2 MG IV ×3 (07:39→22:41)
[2025-01-17] MEDS: NOVOLOG FLEXPEN-LOW RESISTANCE SC ×2 (08:00→14:26)
[2025-01-17 08:23] LABS: Hematocrit 44.1 % (39.0-52.0); Hemoglobin 15.7 g/dL (13.0-18.0); Mean Corp Hgb Conc. 35.6 g/dL (33.0-37.0); Mean Corpuscular Volume 83.7 fL (80.0-94.0); Nucleated Red Blood Cells % 0 % (-); Platelet Count 178 10^3/uL (130-400); Red Cell Dist. Width 12.0 % (11.5-14.5)
[2025-01-17 08:33] LABS: APTT 66.2 Sec (23.4-35.0)
[2025-01-17] MEDS: BUMEX 2 MG PO (08:40)
[2025-01-17] MEDS: LEXAPRO 10 MG PO (08:41)
[2025-01-17] MEDS: ASPIR LOW (ENTERIC COATED) 81 MG PO (08:41)
[2025-01-17] MEDS: FARXIGA 10 MG PO (08:41)
[2025-01-17] MEDS: COREG 12.5 MG PO ×2 (08:41→19:21)
[2025-01-17] MEDS: LIPITOR 40 MG PO (08:41)
[2025-01-17 10:04] LABS: ALT (SGPT) 87 U/L (0-50); AST (SGOT) 61 U/L (17-59); Albumin 4.3 g/dl (3.5-5.0); Alkaline Phosphatase 107 U/L (38-126); Blood Urea Nitrogen 19 mg/dl (9-20); Calcium 9.2 mg/dl (8.4-10.2); Carbon Dioxide 26 mmol/L (22-30); Chloride 102 mmol/L (98-107); Estimated Creatinine Clearance 109 ml/min; Glucose 116 mg/dl (70-99); Potassium 3.4 mmol/L (3.5-5.1); Sodium 136 mmol/L (135-145); Total Protein 6.9 g/dl (6.3-8.2); eGFR > 60.00
--- NOTE | 2025-01-17 10:20 | CM ---
CM reviewed chart, patient inmate from [facility].
Plan for tentative left heart catheterization.
CM will continue to follow for all discharge planning needs.
Plan; return to [facility] when medically stable
--- NOTE | 2025-01-17 11:10 | W.PN.HOSP.TC ---
Today's Communication/Plan
-
Assessment / Plan
Assessment / Plan
General: No acute distress, currently comfortable
HEENT: NormoCephalic, Moist mucous membranes, Atraumatic
Respiratory: Clear and Non Labored Respirations
Cardiac: S1/S2 and Regular Rhythm; No Rub or Gallop
GI: Soft, Non Tender, Non Distended and Normal Bowel Sounds
Musculoskeletal: No Edema, no deformity
Skin: Warm and dry
: NO Jonas
Neuro: Awake, Alert, Nonfocal/grossly intact
Psych: Calm and Intact Judgment/Insight
Mr. Dodd is a 59-year-old male with medical history of CAD (prior [place]), dilated cardiomyopathy, combined systolic and diastolic heart failure (LVEF 20-25%, BiV ICD in place), permanent A-fib (on Xarelto), CVA, and kfd-dbjqzpo-zmtaolain diabetes
mellitus who presented with left-sided chest pain. He was discharged 1 day ago after evaluation for similar presentation (01/10 through 01/15). At the time of previous presentation he had initially elevated troponin of 0.041 which resolved within
normal limits on repeat testing. He underwent ischemic evaluation with a stress echocardiogram which revealed no evidence of inducible ischemia. Abdominal imaging showed passive hepatic congestion and cholelithiasis without cholecystitis and no
common bile duct dilatation. His liver function tests were mildly elevated at that time. He was subsequently discharged with outpatient follow-up. However his chest pain has since returned and has worsened. Lab work at the time of this
presentation reveals a troponin of 0.036. EKG shows no acute changes. He was given sublingual nitro by EMS with no significant improvement in his chest pain but it did decrease his blood pressure which has since recovered. His liver function
tests remain mildly elevated, slightly worse than previous. He received some pain relief with morphine. He has been admitted for further evaluation and management of his chest pain. Cardiology is tentatively planning left heart catheterization
tomorrow. Of note, he reports having previously been evaluated for possible cardiac transplant at [facility] but did not qualify at that time.
Chest pain:
- Has been n.p.o. after midnight for coronary angiography today 01/17
- Continue IV heparin drip
- Telemetry monitoring
- Troponins have plateaued at 0.03
- Pain control as needed
- Continue aspirin and statin
- Further recommendations per cardiology
Abnormal liver function tests:
- Suspect due to hepatic congestion in the setting of severely reduced ejection fraction
- Slightly improved today
- Monitor LFTs, can pursue further imaging if LFTs dramatically rise
Combined systolic and diastolic heart failure:
- EF 20 to 25%, grade 3 diastolic dysfunction on echo 01/11/2025
- Does not appear volume overloaded currently
- Continue beta-demond with home carvedilol 12.5 mg twice daily
- Has not tolerated afterload reducing agents due to borderline hypotension
- Continue SGLT2 inhibitor and home p.o. Bumex 2 mg daily
Permanent A-fib:
- Currently rate controlled
- Continue beta-blockade with carvedilol
- Holding Xarelto for left heart catheterization, anticoagulating with IV heparin
NIDDM:
- Blood glucose currently well-controlled
- Holding home glipizide
- Accu-Cheks with sliding scale insulin as needed
DVT prophylaxis: Holding Xarelto for procedure, IV heparin
CODE STATUS: Full code
Total time spent on today's encounter was 55 minutes.
Anticipated Discharge: > 48 hours
Subjective/Interval History
-
Date of Service: January 17, 2025
Patient was seen and examined at bedside this morning. Had some significant chest pain overnight relieved with sublingual nitro. Remains on IV heparin drip and is awaiting left heart catheterization.
Objective Data
-
Labs:
Laboratory Results
01/17/25 01/17/25 01/17/25
01:43 08:03 14:50
WBC 6.0
Hgb 15.7
Hct 44.1
Plt Count 178
APTT 58.6 H 66.2 H Pending
Sodium 136
Potassium 3.4 L
Chloride 102
Carbon Dioxide 26
BUN 19
Creatinine 0.8
Glucose 116 H
Calcium 9.2
Total Bilirubin 2.9 H
AST 61 H
ALT 87 H
Alkaline Phosphatase 107
Vital Signs:
Vital Signs
Temp Pulse Resp BP Pulse Ox
97.6 F 71 24 139/84 99
01/17/25 07:15 01/17/25 07:15 01/17/25 07:15 01/17/25 07:15 01/17/25 07:15
I&O
01/16/25 01/17/25 01/18/25
06:59 06:59 06:59
Intake Total 480 / 480
Balance 480 / 480
Review of Systems
-
History Source: Patient
All other systems: Reviewed and negative
Cardiac: Reports Chest Pain
Physical Exam
-
General: No Apparent Distress
--- NOTE | 2025-01-17 13:38 | ITS.CL.CATH ---
[facility] - Catheterization
Cardiac Catheterization
Procedure Report:
LEFT HEART CATHETERIZATION
Date of Procedure: January 17, 2025
Referring: Bhupinder Swift MD
PROCEDURES:
1. Left heart catheterization, coronary angiogram.
2. Moderate sedation.
INDICATION: Concern for NSTEMI
ACCESS: Right radial artery, 6Fr. sheath, under US guidance.
HEMODYNAMICS : (mmHg)
AO (s/d) : 92/66
LVEDP : 7
No significant gradient across the aortic valve to suggest aortic stenosis.
CORONARY FINDINGS
Dominance: Right
Left Main Trunk (LMT): Large caliber vessel that gives rise to the LAD and LCx branches and is free of angiographic disease.
Left Anterior Descending Artery (LAD): Large caliber vessel that gives off 2 major diagonal branches as it courses along the anterior inter-ventricular groove before wrapping around the cardiac apex. There is minimal luminal irregularities.
Left Circumflex Artery (LCx): Large caliber vessel that gives off 2 major obtuse marginal (OM) branches as it courses along the atrio-ventricular (AV) groove. There is minimal luminal irregularities.
Right Coronary Artery (RCA): Large caliber dominant vessel that gives rise to the posterior descending artery (RPDA) and postero-lateral ventricular (RPLV) branches distally. There is minimal luminal irregularities.
SEDATION: 27 minutes of procedural sedation was utilized. IV Midazolam and IV Fentanyl were administered. An independent medical billing service was present to assist with and help manage the patient's level of consciousness and physiologic status.
RADIATION SUMMARY: Fluoro Time (min): 2.2, Dose (mGy): 272.18, DAP (Gy.cm2) : 18.9
Closure Device: There were no immediate intra-procedural complications. The sheath was pulled in the senior label specialist and a vascular-band applied to the right wrist for radial artery hemostasis using the patent hemostasis technique.
CONCLUSIONS
1. No obstructive coronary artery disease.
2. Normal LVEDP.
RECOMMENDATIONS
1. Wean radial band per protocol. Monitor right hand perfusion and for bleeding from the radial site following removal of the vascular-band following trans-radial access.
2. Continue aggressive medical therapy and risk factor modification for secondary CAD prevention.
3. Hydrate with normal saline to mitigate the risk of contrast-induced acute kidney injury.
4. Optimize GDMT for NICM.
5. Referral for outpatient cardiac rehab.
Allyn Blanco MD, FACC, [facility]
Copy to: Bhupinder Swift MD
[2025-01-17 14:12] LABS: Glucose - Point of Care 147 mg/dl (70-99)
[2025-01-17 16:58] LABS: Glucose - Point of Care 181 mg/dl (70-99)
[2025-01-17] MEDS: NOVOLOG FLEXPEN-LOW RESISTANCE 1 UNITS SC (17:06)
[2025-01-17 21:18] LABS: Glucose - Point of Care 172 mg/dl (70-99)
[2025-01-17] MEDS: XARELTO 20 MG PO (21:53)
[2025-01-17] MEDS: NITROSTAT (SUBLINGUAL) 0.4 MG SL (22:39)
[2025-01-17] MEDS: NSS (PRESERVATIVE FREE) 8 ML IV (23:21)
[2025-01-17] MEDS: PEPCID 20 MG IV (23:21)
[2025-01-17 23:24] LABS: Troponin I 0.028 ng/ml
--- NOTE | 2025-01-17 23:50 | PTCARENOTE ---
at 2230, pt complains of 10/10 chest pain Vital signs as follows T 98.1, HR 70, RR 18, BP 115/84, 100% O2 RA. PRINCIPAL ACCOUNTS CLERK made aware and assessed pt bedside. EKG, stat troponin resulted 0.028, Nitro SL given and 2mg IV Morphine per PRN given. 2L of O2 for
comfort. Patient expresses no other needs at this time. Call light within reach.
[2025-01-18 03:00] VITALS: BP 124/77
[2025-01-18 03:55] VITALS: BMI 29.8
[2025-01-18 07:14] VITALS: BP 142/82
[2025-01-18] MEDS: BUMEX 2 MG PO (07:38)
[2025-01-18 07:39] LABS: Glucose - Point of Care 117 mg/dl (70-99)
[2025-01-18] MEDS: NOVOLOG FLEXPEN-LOW RESISTANCE SC ×3 (07:39→16:38)
[2025-01-18] MEDS: LIPITOR 40 MG PO (07:39)
[2025-01-18] MEDS: COREG 12.5 MG PO ×2 (07:39→19:23)
[2025-01-18] MEDS: LEXAPRO 10 MG PO (07:39)
[2025-01-18] MEDS: ASPIR LOW (ENTERIC COATED) 81 MG PO (07:39)
[2025-01-18] MEDS: FARXIGA 10 MG PO (07:39)
--- NOTE | 2025-01-18 08:45 | W.PN.UPDATE ---
Update Note
Progress Note Update
Due to ongoing chest pain with unremarkable Lexiscan nuclear stress test patient underwent cardiac catheterization 01/17/2025 which demonstrated no obstructive coronary artery disease. Defer evaluation to primary team for noncardiac causes of chest
pain. Continue GDMT for longstanding nonischemic cardiomyopathy. Patient should return to outpatient gamer at [facility].
Cardiology signing off.
[2025-01-18] MEDS: MORPHINE SULFATE 2 MG IV (08:55)
[2025-01-18 09:16] LABS: Hematocrit 44.5 % (39.0-52.0); Hemoglobin 16.3 g/dL (13.0-18.0); Mean Corp Hgb Conc. 36.6 g/dL (33.0-37.0); Mean Corpuscular Volume 84.6 fL (80.0-94.0); Platelet Count 189 10^3/uL (130-400); Red Cell Dist. Width 12.0 % (11.5-14.5)
[2025-01-18 09:47] LABS: ALT (SGPT) 76 U/L (0-50); AST (SGOT) 41 U/L (17-59); Albumin 4.4 g/dl (3.5-5.0); Alkaline Phosphatase 103 U/L (38-126); Blood Urea Nitrogen 16 mg/dl (9-20); Calcium 9.5 mg/dl (8.4-10.2); Carbon Dioxide 29 mmol/L (22-30); Chloride 100 mmol/L (98-107); Estimated Creatinine Clearance 87 ml/min; Glucose 111 mg/dl (70-99); Potassium 3.2 mmol/L (3.5-5.1); Sodium 137 mmol/L (135-145); Total Protein 7.0 g/dl (6.3-8.2); eGFR > 60.00
[2025-01-18 11:28] LABS: Glucose - Point of Care 137 mg/dl (70-99)
[2025-01-18] MEDS: KCL 40 MEQ PO (11:39)
[2025-01-18 11:43] VITALS: BP 137/85
--- NOTE | 2025-01-18 13:49 | W.PN.HOSP.TC ---
Today's Communication/Plan
-
Assessment / Plan
Assessment / Plan
General: No acute distress, appears uncomfortable
HEENT: NormoCephalic, Moist mucous membranes, Atraumatic
Respiratory: Clear and Non Labored Respirations
Cardiac: S1/S2 and Regular Rhythm; No Rub or Gallop
GI: Soft, Non Tender, Non Distended and Normal Bowel Sounds
Musculoskeletal: No Edema, no deformity
Skin: Warm and dry
: NO Jonas
Neuro: Awake, Alert, Nonfocal/grossly intact
Psych: Calm and cooperative
Mr. 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
mellitus who presented with left-sided chest pain. He was discharged 1 day ago after evaluation for similar presentation (01/10 through 01/15). At the time of previous presentation he had initially elevated troponin of 0.041 which resolved within
normal limits on repeat testing. He underwent ischemic evaluation with a stress echocardiogram which revealed no evidence of inducible ischemia. Abdominal imaging showed passive hepatic congestion and cholelithiasis without cholecystitis and no
common bile duct dilatation. His liver function tests were mildly elevated at that time. He was subsequently discharged with outpatient follow-up. However his chest pain has since returned and has worsened. Lab work at the time of this
presentation reveals a troponin of 0.036. EKG shows no acute changes. He was given sublingual nitro by EMS with no significant improvement in his chest pain but it did decrease his blood pressure which has since recovered. His liver function
tests remain mildly elevated, slightly worse than previous. He received some pain relief with morphine. He has been admitted for further evaluation and management of his chest pain. Cardiology is tentatively planning left heart catheterization
tomorrow. Of note, he reports having previously been evaluated for possible cardiac transplant at [facility] but did not qualify at that time.
Chest pain:
- Coronary angiography 01/17 revealed no evidence of obstructive disease
- Still having intermittent chest pain relieved with sublingual nitro and morphine
- Has been n.p.o. after midnight for coronary angiography today 01/17
- IV heparin discontinued, restarted home Xarelto
- Troponins have plateaued at 0.03
- Continue aspirin and statin
- Cardiology has signed off
- Will check CT chest to evaluate for noncardiac etiologies of his chest pain
- Trial of PPI and Carafate in case this is a GI etiology
Abnormal liver function tests:
- Suspect due to hepatic congestion in the setting of severely reduced ejection fraction
- Slightly improved today
- Monitor LFTs, can pursue further imaging if LFTs dramatically rise
Hypokalemia:
- Potassium 3.2 this morning
- Repleted, monitor
Combined systolic and diastolic heart failure:
- EF 20 to 25%, grade 3 diastolic dysfunction on echo 01/11/2025
- Does not appear volume overloaded currently
- Continue beta-demond with home carvedilol 12.5 mg twice daily
- Has not tolerated afterload reducing agents due to borderline hypotension
- Continue SGLT2 inhibitor and home p.o. Bumex 2 mg daily
Permanent A-fib:
- Currently rate controlled
- Continue beta-blockade with carvedilol
- Resumed home Xarelto
NIDDM:
- Blood glucose currently well-controlled
- Holding home glipizide
- Accu-Cheks with sliding scale insulin as needed
DVT prophylaxis: Xarelto
CODE STATUS: Full code
Total time spent on today's encounter was 52 minutes.
Anticipated Discharge: 24 - 48 hours
Subjective/Interval History
-
Date of Service: January 18, 2025
Patient went for cardiac cath yesterday with with no evidence of obstructive coronary disease found. Continues to have significant chest pain. Troponins remain within normal limits.
Objective Data
-
Labs:
Laboratory Results
01/18/25
08:58
WBC 6.6
Hgb 16.3
Hct 44.5
Plt Count 189
Sodium 137
Potassium 3.2 L
Chloride 100
Carbon Dioxide 29
BUN 16
Creatinine 1.0
Glucose 111 H
Calcium 9.5
Total Bilirubin 2.8 H
AST 41
ALT 76 H
Alkaline Phosphatase 103
Vital Signs:
Vital Signs
Temp Pulse Resp BP Pulse Ox
97.6 F 72 18 137/85 96
01/18/25 11:43 01/18/25 11:43 01/18/25 11:43 01/18/25 11:43 01/18/25 11:43
I&O
01/17/25 01/18/25 01/19/25
06:59 06:59 06:59
Intake Total 480 / 480 1200 / 1200
Balance 480 / 480 1200 / 1200
Review of Systems
-
History Source: Patient
All other systems: Reviewed and negative
Cardiac: Reports Chest Pain
Physical Exam
-
General: Pain
--- NOTE | 2025-01-18 14:43 | CM ---
CM reviewed chart, patient inmate from [facility].
Plan return to [facility] when stable.
CM will continue to follow for all discharge planning needs.
Plan; return to [facility] when medically stable
Report: [phone]
[2025-01-18 15:00] VITALS: BP 135/91
[2025-01-18] MEDS: NSS (PRESERVATIVE FREE) 10 ML IV (15:14)
[2025-01-18] MEDS: PROTONIX IV 40 MG IV (15:15)
[2025-01-18 16:21] LABS: Glucose - Point of Care 129 mg/dl (70-99)
[2025-01-18] MEDS: XARELTO 20 MG PO (17:13)
[2025-01-18 19:00] VITALS: BP 147/84
[2025-01-18 20:45] LABS: Glucose - Point of Care 218 mg/dl (70-99)
[2025-01-18] MEDS: XANAX 0.5 MG PO (21:52)
[2025-01-18 22:34] VITALS: BP 124/76
[2025-01-19 04:27] VITALS: BP 149/93
[2025-01-19 06:00] VITALS: BMI 29.5
[2025-01-19 07:05] VITALS: BP 120/74
[2025-01-19 08:09] LABS: Glucose - Point of Care 118 mg/dl (70-99)
[2025-01-19 09:06] LABS: Blood Urea Nitrogen 15 mg/dl (9-20); Calcium 9.3 mg/dl (8.4-10.2); Carbon Dioxide 29 mmol/L (22-30); Chloride 100 mmol/L (98-107); Estimated Creatinine Clearance 96 ml/min; Glucose 98 mg/dl (70-99); Magnesium 2.2 mg/dl (1.6-2.3); Potassium 3.4 mmol/L (3.5-5.1); Sodium 139 mmol/L (135-145); eGFR > 60.00
[2025-01-19] MEDS: NOVOLOG FLEXPEN-LOW RESISTANCE SC ×2 (09:15→11:31)
[2025-01-19] MEDS: PROTONIX IV 40 MG IV (09:17)
[2025-01-19] MEDS: NSS (PRESERVATIVE FREE) 10 ML IV (09:17)
[2025-01-19] MEDS: BUMEX 2 MG PO (09:17)
[2025-01-19] MEDS: LIPITOR 40 MG PO (09:17)
[2025-01-19] MEDS: ASPIR LOW (ENTERIC COATED) 81 MG PO (09:17)
[2025-01-19] MEDS: FARXIGA 10 MG PO (09:18)
[2025-01-19] MEDS: COREG 12.5 MG PO ×2 (09:18→19:25)
[2025-01-19] MEDS: LEXAPRO 10 MG PO (09:18)
[2025-01-19] MEDS: KCL 260 MEQ IV (09:55)
[2025-01-19 11:00] VITALS: BP 137/85
[2025-01-19 11:19] LABS: Glucose - Point of Care 144 mg/dl (70-99)
[2025-01-19] MEDS: MAGIC OR MIRACLE MOUTHWASH 10 ML PO (11:29)
--- NOTE | 2025-01-19 13:05 | W.PN.HOSP.TC ---
Today's Communication/Plan
-
Assessment / Plan
Assessment / Plan
General: No acute distress, appears uncomfortable
HEENT: NormoCephalic, Moist mucous membranes, Atraumatic
Respiratory: Clear and Non Labored Respirations
Cardiac: S1/S2 and Regular Rhythm; No Rub or Gallop
GI: Soft, Non Tender, Non Distended and Normal Bowel Sounds
Musculoskeletal: No Edema, no deformity
Skin: Warm and dry
: NO Jonas
Neuro: Awake, Alert, Nonfocal/grossly intact
Psych: Calm and cooperative
Mr. Dodd is a 59-year-old male with medical history of CAD (prior [place]), dilated cardiomyopathy, combined systolic and diastolic heart failure (LVEF 20-25%, BiV ICD in place), permanent A-fib (on Xarelto), CVA, and fla-hkzishf-mfnpbvlkq diabetes
mellitus who presented with left-sided chest pain. He was discharged 1 day ago after evaluation for similar presentation (01/10 through 01/15). At the time of previous presentation he had initially elevated troponin of 0.041 which resolved within
normal limits on repeat testing. He underwent ischemic evaluation with a stress echocardiogram which revealed no evidence of inducible ischemia. Abdominal imaging showed passive hepatic congestion and cholelithiasis without cholecystitis and no
common bile duct dilatation. His liver function tests were mildly elevated at that time. He was subsequently discharged with outpatient follow-up. However his chest pain has since returned and has worsened. Lab work at the time of this
presentation reveals a troponin of 0.036. EKG shows no acute changes. He was given sublingual nitro by EMS with no significant improvement in his chest pain but it did decrease his blood pressure which has since recovered. His liver function
tests remain mildly elevated, slightly worse than previous. He received some pain relief with morphine. He has been admitted for further evaluation and management of his chest pain. Cardiology is tentatively planning left heart catheterization
tomorrow. Of note, he reports having previously been evaluated for possible cardiac transplant at [facility] but did not qualify at that time.
Chest pain:
- Coronary angiography 01/17 revealed no evidence of obstructive disease
- Still having intermittent pain in the left lower portion of his chest
- Coronary angiography on 01/17 was unremarkable
- His symptoms did not appear to be cardiac in etiology, cardiology has signed off, continuing aspirin and statin
- Pursuing other etiologies of his symptoms, recent CT imaging of abdomen pelvis with IV and oral contrast was unrevealing for acute GI pathology
- Trial of PPI, Carafate, and GI cocktail
- Check a lactic acid level
- Check CT chest with contrast
Abnormal liver function tests:
- Suspect due to hepatic congestion in the setting of severely reduced ejection fraction
- Slightly improved today
- Monitor LFTs, can pursue further imaging if LFTs dramatically rise
Hypokalemia:
- Potassium 3.4 this morning, magnesium within normal limits
- Repleted, monitor
Combined systolic and diastolic heart failure:
- EF 20 to 25%, grade 3 diastolic dysfunction on echo 01/11/2025
- Does not appear volume overloaded currently
- Continue beta-demond with home carvedilol 12.5 mg twice daily
- Has not tolerated afterload reducing agents due to borderline hypotension
- Continue SGLT2 inhibitor and home p.o. Bumex 2 mg daily
Permanent A-fib:
- Currently rate controlled
- Continue beta-blockade with carvedilol
- Resumed home Xarelto
NIDDM:
- Blood glucose currently well-controlled
- Holding home glipizide
- Accu-Cheks with sliding scale insulin as needed
DVT prophylaxis: Xarelto
CODE STATUS: Full code
Total time spent on today's encounter was 56 minutes.
Anticipated Discharge: 24 - 48 hours
Subjective/Interval History
-
Date of Service: January 19, 2025
Patient was seen and examined at bedside this morning. Continues to have significant left chest/abdominal discomfort. Cardiac workup unremarkable.
Objective Data
-
Labs:
Laboratory Results
01/19/25
06:50
Sodium 139
Potassium 3.4 L
Chloride 100
Carbon Dioxide 29
BUN 15
Creatinine 0.9
Glucose 98
Calcium 9.3
Vital Signs:
Vital Signs
Temp Pulse Resp BP Pulse Ox
97.4 F 73 16 137/85 95
01/19/25 11:00 01/19/25 11:00 01/19/25 11:00 01/19/25 11:00 01/19/25 11:00
I&O
01/18/25 01/19/25 01/20/25
06:59 06:59 06:59
Intake Total 1200 / 1200 1440 / 1440
Balance 1200 / 1200 1440 / 1440
Review of Systems
-
History Source: Patient
All other systems: Reviewed and negative
Cardiac: Reports Chest Pain
Abdomen/GI: Reports Abdominal Pain
Physical Exam
-
General: Pain
[2025-01-19 15:05] VITALS: BP 142/63
[2025-01-19] MEDS: MORPHINE SULFATE 2 MG IV (15:10)
--- NOTE | 2025-01-19 16:05 | PTCARENOTE ---
Patient was complaining of left lower rib pain on side. Given morphine for pain. Vitals stable. Assessment pain and went down significantly. Pain comes and goes. Plan of care ongoing.
[2025-01-19 16:25] LABS: Glucose - Point of Care 204 mg/dl (70-99)
[2025-01-19] MEDS: XARELTO 20 MG PO (17:32)
[2025-01-19] MEDS: NOVOLOG FLEXPEN-LOW RESISTANCE 2 UNITS SC (17:32)
[2025-01-19 19:46] VITALS: BP 129/77
[2025-01-19] MEDS: XANAX 0.5 MG PO (21:15)
[2025-01-19 21:32] LABS: Glucose - Point of Care 168 mg/dl (70-99)
[2025-01-19 23:39] VITALS: BP 127/77
[2025-01-20 03:19] VITALS: BP 134/83
[2025-01-20 05:58] VITALS: BMI 29.4
[2025-01-20 07:21] LABS: Glucose - Point of Care 117 mg/dl (70-99)
[2025-01-20 07:24] VITALS: BP 137/81
[2025-01-20] MEDS: LIPITOR 40 MG PO (09:08)
[2025-01-20] MEDS: BUMEX 2 MG PO (09:08)
[2025-01-20] MEDS: NOVOLOG FLEXPEN-LOW RESISTANCE SC ×2 (09:08→11:37)
[2025-01-20] MEDS: ASPIR LOW (ENTERIC COATED) 81 MG PO (09:09)
[2025-01-20] MEDS: COREG 12.5 MG PO (09:09)
[2025-01-20] MEDS: PROTONIX IV 40 MG IV (09:09)
[2025-01-20] MEDS: FARXIGA 10 MG PO (09:09)
[2025-01-20] MEDS: LEXAPRO 10 MG PO (09:09)
[2025-01-20] MEDS: NSS (PRESERVATIVE FREE) 10 ML IV (09:10)
[2025-01-20] MEDS: XANAX 0.5 MG PO (09:55)
[2025-01-20] MEDS: MORPHINE SULFATE 2 MG IV (09:56)
--- NOTE | 2025-01-20 11:22 | W.DCSUMMARY ---
Discharge Summary
Discharge Data
Date of Admission: 01/16/25
Date of Discharge: 01/20/25
Total time spent discharging patient (in min): 49
-
Pending Results: No
Hospital Course
Mr. 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
mellitus who presented with left-sided chest pain. He was discharged 1 day prior to this admission after evaluation for similar presentation (01/10 through 01/15). At the time of previous presentation he had initially elevated troponin of 0.041 which
resolved within normal limits on repeat testing. He underwent ischemic evaluation with a stress echocardiogram which revealed no evidence of inducible ischemia. Abdominal imaging showed passive hepatic congestion and cholelithiasis without
cholecystitis and no common bile duct dilatation. His liver function tests were mildly elevated at that time. He was subsequently discharged with outpatient follow-up. However his chest pain has since returned and has worsened. Lab work at the
time of this presentation reveals a troponin of 0.036. EKG shows no acute changes. He was given sublingual nitro by EMS with no significant improvement in his chest pain but it did decrease his blood pressure which has since recovered. His liver
function tests remain mildly elevated, but stable. He received some pain relief with morphine. He was admitted for further evaluation and management of his chest pain. Of note, he reports having previously been evaluated for possible cardiac
transplant at [facility] but did not qualify at that time.
His chest pain symptoms were intermittent during this hospitalization. He underwent cardiac catheterization with coronary angiography on 01/17/2025 which revealed no evidence of obstructive disease. His troponins remained stable around 0.03.
Noncardiac etiologies of his pain were evaluated. He was started on PPI and Carafate with no significant change in his symptoms he was given a GI cocktail including viscous lidocaine which also did not relieve or exacerbate his pain. His symptoms
were not correlated at all with p.o. intake. Chest CT with IV contrast showed no acute abnormalities. Prior CT imaging of his abdomen and pelvis with IV and oral contrast showed no evidence of infection or intra-abdominal etiologies of his
symptoms. There is no evidence of infection. His liver function tests remain slightly elevated but stable compared to prior admission. Cardiology has signed off, however they do recommend close follow-up with his primary cardi[facility] team [facility] for management of his chronic heart failure with severely reduced ejection fraction of 20 to 25%. At the time of hospital discharge he was medically stable however still having intermittent left lower chest/left
upper quadrant pain. He will be continued on his home medications.
General: No acute distress, appears uncomfortable
HEENT: NormoCephalic, Moist mucous membranes, Atraumatic
Respiratory: Clear and Non Labored Respirations
Cardiac: S1/S2 and Regular Rhythm; No Rub or Gallop
GI: Soft, Non Tender, Non Distended and Normal Bowel Sounds
Musculoskeletal: No Edema, no deformity
Skin: Warm and dry
: NO Jonas
Neuro: Awake, Alert, Nonfocal/grossly intact
Psych: Calm and cooperative
Discharge Plan
-
Patient Disposition: Fdc
Discharge Diagnosis/Procedures: Cardiac cath, chest pain
Diet: Low Cholesterol and Diabetic, Carb Controlled
Driving Restrictions: No driving for 24 hours
Activity Restrictions/Additional Instructions:
Mr. Dodd is a 59-year-old male with medical history of CAD (prior [place]), dilated cardiomyopathy, combined systolic and diastolic heart failure (LVEF 20-25%, BiV ICD in place), permanent A-fib (on Xarelto), CVA, and kgc-dqcqkzz-ghzbtyjzg diabetes
mellitus who presented with left-sided chest pain. He was discharged 1 day prior to this admission after evaluation for similar presentation (01/10 through 01/15). At the time of previous presentation he had initially elevated troponin of 0.041 which
resolved within normal limits on repeat testing. He underwent ischemic evaluation with a stress echocardiogram which revealed no evidence of inducible ischemia. Abdominal imaging showed passive hepatic congestion and cholelithiasis without
cholecystitis and no common bile duct dilatation. His liver function tests were mildly elevated at that time. He was subsequently discharged with outpatient follow-up. However his chest pain has since returned and has worsened. Lab work at the
time of this presentation reveals a troponin of 0.036. EKG shows no acute changes. He was given sublingual nitro by EMS with no significant improvement in his chest pain but it did decrease his blood pressure which has since recovered. His liver
function tests remain mildly elevated, but stable. He received some pain relief with morphine. He was admitted for further evaluation and management of his chest pain. Of note, he reports having previously been evaluated for possible cardiac
transplant at [facility] but did not qualify at that time.
His chest pain symptoms were intermittent during this hospitalization. He underwent cardiac catheterization with coronary angiography on 01/17/2025 which revealed no evidence of obstructive disease. His troponins remained stable around 0.03.
Noncardiac etiologies of his pain were evaluated. He was started on PPI and Carafate with no significant change in his symptoms he was given a GI cocktail including viscous lidocaine which also did not relieve or exacerbate his pain. His symptoms
were not correlated at all with p.o. intake. Chest CT with IV contrast showed no acute abnormalities. Prior CT imaging of his abdomen and pelvis with IV and oral contrast showed no evidence of infection or intra-abdominal etiologies of his
symptoms. There is no evidence of infection. His liver function tests remain slightly elevated but stable compared to prior admission. Cardiology has signed off, however they do recommend close follow-up with his primary cardiology team at [facility] (comprehensive cardiology) for management of his chronic heart failure with severely reduced ejection fraction of 20 to 25%. At the time of hospital discharge he was medically stable however still having intermittent left lower chest/left
upper quadrant pain. He will be continued on his home medications.
Stand Alone Forms: DC Instructions- Cath/EP Lab
Referrals:
Sailaja Sharma CRNP [Non-Admitting Privileges, Cardiology] - in two to four weeks
[facility] [Family Provider, General]
Prescriptions:
New
nitroglycerin 0.4 mg Tablet, Sublingual
0.4 mg sublingual [id number] PRN (Reason: chest pain) Qty: 20 0RF
pantoprazole 40 mg tablet,delayed release (DR/EC)
40 mg PO DAILY Qty: 30 0RF
Continued
atorvastatin [Lipitor] 40 mg Tablet
40 mg PO DAILY
carvedilol [Coreg] 12.5 mg Tablet
12.5 mg PO Q12H
bumetanide 2 mg Tablet
2 mg PO DAILY
aspirin 81 mg Tablet,Delayed Release (Dr/Ec)
81 mg PO DAILY
Xarelto 20 mg Tablet
20 mg PO QPM
Jardiance 10 mg Tablet
10 mg PO DAILY
escitalopram oxalate 10 mg Tablet
10 mg PO DAILY Qty: 30 0RF
therapeutic multivitamin Tablet
1 tab PO DAILY
acetaminophen [Tylenol] 325 mg tablet
650 mg PO TIDPRN PRN (Reason: fever or pain)
docusate sodium 100 mg capsule
100 mg PO BIDPRN PRN (Reason: constipation)
Held
glipizide 5 mg Tablet
5 mg PO DAILY
Hold Instructions: Apparently this medication was on hold prior to this admission. He did not receive this medication during this admission. Defer restarting this medication to original prescribing physician.
Rx Instructions:
on hold as per [facility]
Discharge Orders:
Discharge Patient (As Directed); Ordered 01/20/25
Ordered By: Adam Jeffries
Discharge Date and Time
Print Language: TAMAZIGHT
[2025-01-20 11:32] LABS: Glucose - Point of Care 130 mg/dl (70-99)
[2025-01-20 11:35] LABS: Hematocrit 46.5 % (39.0-52.0); Hemoglobin 16.9 g/dL (13.0-18.0); Mean Corp Hgb Conc. 36.3 g/dL (33.0-37.0); Mean Corpuscular Volume 83.0 fL (80.0-94.0); Platelet Count 213 10^3/uL (130-400); Red Cell Dist. Width 12.0 % (11.5-14.5)
[2025-01-20 11:46] LABS: Blood Urea Nitrogen 18 mg/dl (9-20); Calcium 9.6 mg/dl (8.4-10.2); Carbon Dioxide 26 mmol/L (22-30); Chloride 100 mmol/L (98-107); Estimated Creatinine Clearance 96 ml/min; Glucose 146 mg/dl (70-99); Potassium 3.5 mmol/L (3.5-5.1); Sodium 136 mmol/L (135-145); eGFR > 60.00
--- NOTE | 2025-01-20 11:51 | CM ---
Chart reviewed. Per hospitalist, patient will d/c today back to [facility]
No CM needs at this time
[facility]
Report: [phone]

Plan: Return to [facility] today
[2025-01-20 12:00] VITALS: BP 115/78
== END 2025-01-20 12:50 | DRG 287 ==
LOC: 4 WEST ACU 15:28
PROVIDERS: Internal Medicine Interventional Cardiology; Nurse Practitioner Family; Physician Assistant; ADMITTING PHYSICIAN Internal Medicine; EMERGENCY PHYSICIAN Emergency Medicine
PROC: B2111ZZ Fluoroscopy of Multiple Coronary Arteries using Low Osmolar Contrast (ICD-10-PCS; 2025-01-17)
PROC: 4A023N7 Measurement of Cardiac Sampling and Pressure, Left Heart, Percutaneous Approach (ICD-10-PCS; 2025-01-17)
DX: R07.9 Chest pain, unspecified (principal); I48.21 Permanent atrial fibrillation; I50.42 Chronic combined systolic (congestive) and diastolic (congestive) heart failure; I42.0 Dilated cardiomyopathy; E11.9 Type 2 diabetes mellitus without complications; I25.10 Atherosclerotic heart disease of native coronary artery without angina pectoris; K76.1 Chronic passive congestion of liver; K80.20 Calculus of gallbladder without cholecystitis without obstruction; E87.6 Hypokalemia; Z79.01 Long term (current) use of anticoagulants; I25.2 Old myocardial infarction; Z95.810 Presence of automatic (implantable) cardiac defibrillator; Z86.73 Personal history of transient ischemic attack (TIA), and cerebral infarction without residual deficits; Z79.82 Long term (current) use of aspirin; Z79.84 Long term (current) use of oral hypoglycemic drugs
CPT/HCPCS: 71260; 80048; 80053; 80306; 80307; 82962; 83605; 83690; 83735; 84100; 84484; 85025; 85027; 85379; 85730; 87070; 93005; 93458; 96374; 99152; 99153; 99285; C1894; Q9967

== ENCOUNTER 2025-02-22 23:06 | Observation (INO) | payer OTHER, SELFPAY ==
[2025-02-22] VITALS (8 sets, daily range): BP systolic 82–139; BP diastolic 63–97; BMI 29.7
--- NOTE | 2025-02-22 19:23 | ED.GENMED ---
History of Present Illness
General
Chief Complaint: Chest Pain
Source: patient
Exam Limitations: none
Time Seen by Provider: 02/22/25 19:19
Nursing documentation reviewed up to this point in time: agreed with
History of Present Illness
History of Present Illness:
59-year-old male presents emergency department from [facility] due to chest pain. Is unclear whether his defibrillator fired.
Past History
Past History
ED Past Medical History: Arrthythmia, HTN, Hypercholesterolemia and NV
ED Past Surgical History: Cardiac (defibrillator) and Other (gastric bypass)
Social History
Tobacco: Non-smoker
Alcohol: None
Drug: None
Living: [facility]
Review of Systems
Review of Systems
Allergies reviewed?: Yes
All Other Systems: Not applicable
Constitutional: Reports no symptoms
EENT: Reports no symptoms
Respiratory: Reports no symptoms
Cardiac: Reports chest pain
ABD/GI: Reports no symptoms
: Reports no symptoms
Musculoskeletal: Reports no symptoms
Skin: Reports no symptoms
Neurological: Reports dizzy and weakness
Endocrine: Reports no symptoms
Hematologic/Lymphatic: Reports no symptoms
Psychiatric: Reports no symptoms
Phy Exam
Physical Exam
Physical Exam:
Physical Exam
General: Appears uncomfortable, afebrile
Neck: supple. no meningeal signs. normal posterior pharynx
Heart: s1/s2 regular rate and rhythm, no murmur. equal radial
pulses. Pacemaker
HEENT: Pupils equal round reactive to light, EOMI
Lungs: no acute respiratory distress. clear bilaterally
Abdomen: normal bowel sounds. not tender. no CVAT
Neuro: alert and oriented. no focal neurological deficits cranial nerves II through XII intact
Skin: no rash
Psychiatric: well kept. interactive and cooperative
Extremities: no edema. no calf tenderness. negative homans. good distal pulses
Scores
Heart Score for Chest Pain Patients
STEMI patient?: No
History: Slightly or Non-Suspicious
ECG: Nonspecific Repolarization
Age: >45 - <65 years
Risk Factors: 1 or 2 Risk Factors
Troponin: </= Normal Limit
Heart Score for Chest Pain Patients: 3
Heart Score Risk: 2.5% MACE over next 6 weeks
Course
Orders/Labs/Results
Orders:
Orders
02/22/25 19:16
Electrocardiogram (*1) Urgent
Reason for Study: Other
Other Reason for Exam: Respiratory Distress
Cardiac Monitoring- Treatment ONCE
EKG- Treatment ONCE
IV Insert/Care/Rem.- Treatment PRN
CR Chest - 2 Views Urgent
Comment:
Reason For Exam: respiratory distress
O2 Therapy [RESP] Urgent
Titrate/Wean O2 to maintain O2 sat greater than (%): 93
Special Instructions: TO MAINTAIN CONTINUOUS O2 SATS >/= 93%
Pulse Ox/cont/shift [RESP] Urgent
Quantity: 1
Special Instructions: continuous pulse ox
02/22/25 19:36
Morphine Sulfate 2 mg IV NOW STA
Ondansetron Injectable [Zofran] 4 mg IV NOW STA
02/22/25 19:40
Complete Blood Count/With Diff Urgent
Comprehensive Metabolic Panel Urgent
Magnesium Urgent
Comment: ADD ON
NT-proBNP Urgent
Troponin I Urgent
02/22/25 19:57
Midazolam HCl [Versed] 1 mg IV NOW STA
02/22/25 21:13
Electrocardiogram (*1) Urgent
Reason for Study: Chest Pain
EKG- Treatment ONCE
02/22/25 21:15
Morphine Sulfate 4 mg IV NOW STA
Ondansetron Injectable [Zofran] 4 mg .ROUTE .STK-MED ONE
Ondansetron Injectable [Zofran] 4 mg IV NOW STA
02/22/25 21:16
Morphine Sulfate 4 mg .ROUTE .STK-MED ONE
02/22/25 21:17
Morphine Sulfate 4 mg IV NOW STA
02/22/25 21:21
ECG [Electrocardiogram (*1)] Urgent
Reason for Study: Chest Pain
Cardiology Consult: Unknown
EKG- Treatment ONCE
02/22/25 21:57
Add On- LAB Urgent
Tests Added?: magnesium
Potassium Chloride 10% Elixir [KCl Elixir] 40 meq PO NOW STA
Potassium Chloride [KCl] 40 meq 0.9% Sodium Chloride 250 ml [Nss] 250 ml IV NOW
02/22/25 22:16
Potassium Chloride [KCl] 40 meq PO NOW STA
02/22/25 22:54
CT Abd/pelvis W Iv Cont Urgent
Comment:
Reason For Exam: splenomegaly
02/22/25 22:55
Admit/Transfer Patient As Directed
Co-Sign Provider:
Level of Care: Observation services
Assign to:: Telemetry
Physician / Group: margarita riddle
Diagnosis: L upper abd pain concern splenic infarct vs infection
Reason for Telemetry: Arrhythmia
Date to Stop Telemetry: 02/25/25
Time to Stop Telemetry: 11:00
Reason for Hospitalization: L upper abd pain concern splenic infarct vs infection
Code Status As Directed
Resuscitation Status: Full Code
02/22/25 22:59
PRN Pain Medication Management As Directed
May give lesser potent ordered pain med per pt: Yes
preference::
Protocol:: Medication orders for pain may be administered in a
manner that supports deferring to patient preference
when the pt is:
- Requesting an ordered lesser potent pain medication.
Least to most potent pain medications are defined
as: acetaminophen < NSAID < tramadol < opioids
(morphine, oxycodone, hydromorphone).
- Requesting a lesser dose of the same medication IF
ORDERED.
- Requesting a less intrusive route of administration
if both routes are prescribed by the provider (PO <
IV).
02/23/25 00:11
HYDROmorphone [Dilaudid] 1 mg IV Q4HPRN PRN
02/23/25 01:45
Carvedilol [Coreg] 12.5 mg PO Q12H
HYDROmorphone [Dilaudid] 0.25 mg IV Q3HPRN PRN
HYDROmorphone [Dilaudid] 0.5 mg IV Q3HPRN PRN
Ondansetron Injectable [Zofran] 4 mg IV Q6HPRN PRN
02/23/25 01:45
VTE Contraindication Routine
VTE Mechanical Device Contraindication: Medical Contraindication
Pharmocologic Contraindication: Medical Contraindication
Comment: pt on xarelto
Activity As Directed
Activity Level: As Tolerated
Intake/ Output As Directed
Frequency: Per unit guidelines
Vital Signs As Directed
Frequency: Per unit guidelines
Weight As Directed
Frequency: Daily
02/23/25 02:51
Complete Blood Count/With Diff IN AM
Comprehensive Metabolic Panel IN AM
02/23/25 08:00
Aspirin Low Dose EC [Aspir Low (Enteric Coated)] 81 mg PO DAILY
Atorvastatin [Lipitor] 40 mg PO DAILY
Bumetanide [Bumex] 2 mg PO DAILY
Escitalopram Oxalate [Lexapro] 10 mg PO DAILY
Pantoprazole [Protonix] 40 mg PO DAILY
02/23/25 18:00
Rivaroxaban [Xarelto] 20 mg PO QPM
02/24/25 06:00
Complete Blood Count/With Diff IN AM
Comprehensive Metabolic Panel IN AM
02/25/25 11:00
DC Protocol for Telemetry ONCE
Abnormal Lab Results
02/22/25
19:40
MCHC 37.1 H g/dL
(33.0-37.0)
Monocytes % 9.4 H %
(1.7-9.3)
Potassium 3.3 L mmol/L
(3.5-5.1)
Glucose 149 H mg/dl
(70-99)
Total Bilirubin 3.4 H mg/dl
(0.2-1.3)
02/22/25 19:40
02/22/25 19:40
Vital Signs
Initial and Last Documented VS:
Initial Vital Signs
Pulse Resp BP Pulse Ox
70 32 82/67 100
02/22/25 19:23 02/22/25 19:23 02/22/25 19:23 02/22/25 19:23
Last Documented Vital Signs
Pulse Resp BP Pulse Ox
72 13 103/57 93
02/23/25 02:46 02/23/25 02:00 02/23/25 02:46 02/23/25 02:00
MDM/Problems Addressed
Differential Diagnosis Includes:
ACS, V. tach
MDM/Problems Addressed:
59-year-old male with chest pain and hypokalemia. Persistent. CT no acute findings chest x-ray no acute findings. Device did not fire based on INFIMET ICD report. Admit to hospitalist for further treatment.
Chronic conditions affecting care: HTN, Cardiomyopathy and Arrhythmia
Acute Exacerbation and/or Progression of Chronic Illness: HTN, Cardiomyopathy and Arrhythmia
*Radiology
Radiology exam reviewed: radiology read reviewed (CT abdomen pelvis no acute findings, chest x-ray no acute findings)
*Pulse Oximetry
SaO2: 97
Oxygen Mode of Delivery: Room air
Patient hypoxic: no
*EKG
Interpreted by ED Provider?: Yes
EKG Intrepretation Date: 02/22/25
EKG Intrepretation Time: 19:18
Interpretation: abnormal
Comparison EKG: no changes
Heart Rate: 71
Rate: normal
Rhythm: ventricular paced
[place]: left axis deviation
Interval: normal interval
QRS Pattern: left bundle branch block
Ischemia: no ischemia
*Critical Care Note
Total Time (30-74mins, 75-104mins- exclusive of procedures): Not Applicable
Data Reviewed
Review of Other/Old Records Reveals: Records
Source: records (Reviewed recent echocardiograms 20-25% EF)
Patient Management
Social determinants of health affecting care: Living situation and Strong social support
Discussion with other providers: Hospitalist and Laminator (Cardiology Dr. Do notified)
Escalation/DeEscalation of care consider admission/obs:
Admit indicated
ED Attending Note
-
Portions of this chart may have been created with voice recognition software.� Occasional wrong word or��sound alike� substitutions may have occurred due to the inherent limitations of voice recognition software.
Discharge Plan
Departure
Patient Disposition: Admit
Date of Disposition: 02/22/25
Time of Disposition: 22:13
Admit to: IMU
Presentation/result/management discussed w/ accepting MD/DO: Hospitalist
Patient with high blood pressure during this ER visit?: Yes
Condition: Fair
Discharge Problem:
Chest pain, Hypokalemia
Interventions
Interventions:
*Risk Screen - Suicide Last Done: 02/22/25 19:53
*General Assessment Last Done: 02/22/25 19:53
*Neglect/Abuse Screening Last Done: 02/22/25 19:53
*ED- Fall Risk Assessment Last Done: 02/22/25 19:53
*ED COVID-19 Vaccine History Last Done: 02/22/25 19:23
*ED Influenza Vaccine History Last Done: 02/23/25 01:19
*Nursing Disposition Last Done: 02/23/25 01:16
ED- Cardiac Assessment Last Done: 02/22/25 22:00
Discharge Date and Time
Discharge Date/Time: 02/23/25 01:45
[2025-02-22] MEDS: MORPHINE SULFATE 2 MG IV (19:44)
[2025-02-22] MEDS: ZOFRAN 4 MG IV ×2 (19:45→21:19)
[2025-02-22 19:50] LABS: Hematocrit 40.2 % (39.0-52.0); Hemoglobin 14.9 g/dL (13.0-18.0); Mean Corp Hgb Conc. 37.1 g/dL (33.0-37.0); Mean Corpuscular Volume 82.9 fL (80.0-94.0); Nucleated Red Blood Cells % 0 % (-); Platelet Count 164 10^3/uL (130-400); Red Cell Dist. Width 13.2 % (11.5-14.5)
[2025-02-22] MEDS: VERSED 1 MG IV (20:01)
[2025-02-22 20:12] LABS: ALT (SGPT) 46 U/L (0-50); AST (SGOT) 45 U/L (17-59); Albumin 4.5 g/dl (3.5-5.0); Alkaline Phosphatase 94 U/L (38-126); Blood Urea Nitrogen 9 mg/dl (9-20); Calcium 9.3 mg/dl (8.4-10.2); Carbon Dioxide 25 mmol/L (22-30); Chloride 102 mmol/L (98-107); Estimated Creatinine Clearance 87 ml/min; Glucose 149 mg/dl (70-99); Potassium 3.3 mmol/L (3.5-5.1); Sodium 137 mmol/L (135-145); Total Protein 6.9 g/dl (6.3-8.2); eGFR > 60.00
[2025-02-22 20:23] LABS: Troponin I 0.029 ng/ml
[2025-02-22] MEDS: MORPHINE SULFATE 4 MG IV ×2 (21:18→21:19)
--- NOTE | 2025-02-22 22:14 | HPS.HSE ---
Addendum entered and electronically signed by Cindi Farrell MD 02/22/25 23:31:
Consider atypical infections vs autoimmune disorders for etiology of splenomegaly.
Addendum entered and electronically signed by Cindi Farrell MD 02/22/25 23:25:
History of gastric sleeve procedure.
Addendum entered and electronically signed by Cindi Farrell MD 02/22/25 23:22:
This is an addendum to the H&P written by Evie Samson on 02/22/2025. �Patient seen and examined independently with [employer]
59-year-old male past medical history of CAD, prior GA, dilated cardiomyopathy, combined systolic/diastolic CHF with ICD, permanent atrial fibrillation on Xarelto, hypertension, CVA, anxiety, diabetes [facility] Pain
is actually located in the left upper abdomen and radiates to the back as well as laterally.
He was recently admitted for chest pain and underwent ischemic evaluation with stress echocardiogram which showed no inducible ischemia. �He then underwent cardiac catheterization which showed no evidence of obstructive disease. �Noncardiac
etiologies of pain were evaluated and he was started on PPI and Carafate which did not help.
Vital signs unremarkable.
Labs show potassium 3.3. �Troponin of 0.029. �Cardiac BNP of 890.
Chest x-ray shows no acute cardiopulmonary process. �Recent CT chest on 01/19 shows cholelithiasis. �Recent CT abdomen pelvis from 01/13 shows mild splenomegaly, moderate passive hepatic venous congestion in liver, cholelithiasis, mild diverticulosis,
moderate amount of fecal material in the rectum, small to moderate size fat-containing umbilical hernia, mildly enlarged prostate gland, mild chronic urinary bladder outlet fracture, severe discogenic degenerative disc disease at L5/S1.
Doubt that patient's pain is cardiac in nature especially since he had cardiac catheterization which showed no obstructive disease. Location of the pain seems to correspond to the patient's spleen which on prior CAT scan abdomen pelvis showed mild
splenomegaly. Patient had passive hepatic venous congestion on the prior CT scan which is likely secondary to heart failure. Unclear if patient has splenic trauma or infarct or splenic granuloma causing pain. Will recheck CT abdomen pelvis and
will likely need hematologic evaluation for splenomegaly.
Hypokalemia secondary to Bumex. Replete potassium. Check magnesium.
Original Note:
Family Physician
-
Family Physician: Facility [facility]
Chief Complaint
-
Left upper abdominal pain
History of Present Illness
59-year-old male from [facility] complaining of sharp intermittent left upper abdominal pain over spleen. He reports the pain started yesterday multiple times. He describes sharp in nature with episode vomiting here in the
ER. He had prior CT abdomen 01/13/2025 showing enlarged spleen with clef possibly secondary to previous traumatic injury or infarction. He does have history of A-fib with history of CVA but is anticoagulated on Xarelto and compliant. He had his ICD
interrogated which showed no events. He did experience relief of pain with morphine.
He has past medical history of CAD/GA, combined systolic/diastolic heart failure reduced EF 20-25%, ICD, permanent A-fib on Xarelto, CVA, DM 2, gastric bypass, cholelithiasis, mild splenomegaly, small�moderate fat-containing umbilical hernia, mildly
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 He had elevated
liver function studies had abdominal ultrasound showing hepatic congestion. He was given PPI, Carafate and GI cocktail with no significant change in his pain.
Medical History
Past Medical History
Past Medical History: Reports Other
Additional Past Medical History:
CAD (prior GA),
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
ICD
permanent A-fib (on Xarelto)
CVA
[id number] diabetes mellitus
DM 2
gastric bypass
cholelithiasis
mild splenomegaly
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
small�moderate fat-containing umbilical hernia
mildly enlarged prostate gland
mild chronic urinary bladder outlet obstruction,
severe DDD L5-S1
Past Surgical History: Reports Other
Additional Past Surgical History:
Gastric bypass
ICD
Social History
Tobacco: Non-smoker
Alcohol: None
Drug: None
Living: [facility]
Family History
Family History: Not pertinent
Allergies / Home Medications
Allergies reflects when Allergies were last updated in [employer].
Home Medications with original date entered in [employer]
Allergy/Medication List:
Allergies
Allergy/AdvReac Type Severity Reaction Status Date / Time
No Known Allergies Allergy Verified 01/16/25 15:09
Home Medications
aspirin 81 mg tablet,delayed release 81 mg PO DAILY Blood Clot Prevention/Tx 01/10/25
atorvastatin 40 mg tablet (Lipitor) 40 mg PO DAILY High Cholesterol 01/10/25
bumetanide 2 mg tablet 2 mg PO DAILY Fluid Retention/Swelling 01/10/25
carvedilol 12.5 mg tablet (Coreg) 12.5 mg PO Q12H Heart Disease/Condition 01/10/25
empagliflozin 10 mg tablet (Jardiance) 10 mg PO DAILY Diabetes 01/10/25
rivaroxaban 20 mg tablet (Xarelto) 20 mg PO QPM Blood Clot Prevention/Tx 01/10/25
escitalopram oxalate 10 mg tablet 10 mg PO DAILY #30 tabs 01/15/25
acetaminophen 325 mg tablet (Tylenol) 650 mg PO TIDPRN PRN fever or pain 01/16/25
docusate sodium 100 mg capsule 100 mg PO BIDPRN PRN constipation 01/16/25
glipizide 5 mg tablet 5 mg PO DAILY Diabetes 01/16/25
Held on 01/20/25. Instructions: Apparently this medication was on hold prior to this admission. He did not receive this medication during this admission. Defer restarting this medication to original prescribing physician.
therapeutic multivitamin 1 tab PO DAILY Supplement 01/16/25
nitroglycerin 0.4 mg sublingual tablet 0.4 mg sublingual [id number] PRN chest pain #20 tabs 01/20/25
pantoprazole 40 mg tablet,delayed release 40 mg PO DAILY #30 tabs 01/20/25
Review of Systems
-
History Source: Patient and Other (To [facility] at bedside)
A 12 point ROS was completed and negative except as noted: Yes
Constitutional: Denies Fever or Chills
EENT: Denies Sore Throat or Runny Nose
Respiratory: Denies Cough or Trouble Breathing
Cardiac: Denies Chest Pain, Palpitations or Syncope
Abdomen/GI: Reports Abdominal Pain (Left upper quadrant), Nausea and Vomiting; Denies Diarrhea, Constipated, Bloody Stools or Black Stools
: Denies Dysuria, Frequency, Flank Pain, Incontinence, Difficulty Voiding or Urgency
Musculoskeletal: Denies Joint Pain or Edema
Skin: Denies Itching or Rash
Neurological: Denies Dizzy, Headache or Weakness
Endocrine: Reports No Symptoms
Hematologic/Lymphatic: Reports No Symptoms
Psych: Reports Calm
Physical Exam
Vital Signs
Vital Signs
Pulse Resp BP Pulse Ox
70 17 121/65 100
02/22/25 21:30 02/22/25 21:30 02/22/25 21:30 02/22/25 21:30
Physical Exam
General: Pain; No Fever or Chills
HEENT: NormoCephalic, Anicteric, Moist mucous membranes, PERRLA, [place] Conjunctivae and No Ptosis
Respiratory: Clear; No Wheezes, Rales or Rhonchi
Cardiac: S1/S2 and Regular Rhythm; No Murmur, Rub, Gallop or Peripheral Edema
Breast: Deferred by me
GI: Soft, Non Distended, Normal Bowel Sounds and Tender (Left upper quadrant)
Genito-urinary: Deferred by me
Musculoskeletal: No Clubbing, No Cyanosis, No Edema and Other (Bilateral legs handcuffed to bed as patient is in custody [facility])
Skin: Warm, Dry and Other (Chronic Mohs multiple hemangiomas to upper chest, back); No Rash
Neuro: AO x 3, No Motor Deficits, Nonfocal/grossly intact, Cranial Nerves Intact and No Sensory Deficits; No Slurred Speech, Facial Droop, Tremors or Sedated
Psych: Calm
Laboratory Results
-
02/22/25 19:40
02/22/25 19:40
Laboratory Results
Total Bilirubin 3.4 mg/dl (0.2-1.3) H 02/22/25 19:40
AST 45 U/L (17-59) 02/22/25 19:40
ALT 46 U/L (0-50) 02/22/25 19:40
Alkaline Phosphatase 94 U/L (38-126) 02/22/25 19:40
Troponin I 0.029 ng/ml 02/22/25 19:40
Impression/Plan
-
Impression/plan:
Observation telemetry
#LEft upper abd pain concern for possible splenic infarct versus infection
Patient follows with [facility] comprehensive cardiology
- Cardiac cath 01/17/2025 nonobstructive CAD
Troponin 0.029
- Continue aspirin 81 mg daily, Lipitor 40 mg daily
-relieved with morphine
-Check CT abdomen pelvis with IV contrast if positive for infarct will need hematology consult
# Hypokalemia
K3.3
-Will give KCl 40 mEq
follow bmp
#History of gastric sleeve
#History of cholelithiasis
History CT abdomen 01/13/2025: Showing layering gallstones in the gallbladder lumen no CBD dilation, mildly enlarged spleen 15 cm
The spleen is mildly enlarged measuring 15 cm in length. The spleen has mildly irregular shape and contains a thin low attenuation cleft which could be secondary to previous traumatic injury or infarction.
There is a punctate calcified granuloma in the posterior aspect of the spleen.
#Combined systolic and diastolic heart failure
- EF 20 to 25%, grade 3 diastolic dysfunction on echo 01/11/2025
- Continue beta-demond with home carvedilol 12.5 mg twice daily
- Has not tolerated afterload reducing agents due to borderline hypotension
- Continue home p.o. Bumex 2 mg daily
-Hold Jardiance
- Patient follows with comprehensive cardiology had heart transplant evaluation several years ago was on milrinone pump but did not follow-up
#Permanent A-fib
- Currently rate controlled
- Continue carvedilol
-Continue Xarelto
#NIDDM
-glipizide was DC'd 01/20/2025
Accu-Cheks SSI
Other PMH:
small�moderate fat-containing umbilical hernia
mildly enlarged prostate gland
mild chronic urinary bladder outlet obstruction,
severe DDD L5-S1
-
DVT prophylaxis: Continue Xarelto
CODE STATUS: Full code
[2025-02-22] MEDS: KCL 40 MEQ PO (22:25)
[2025-02-22 22:30] LABS: Magnesium 1.8 mg/dl (1.6-2.3)
[2025-02-23] VITALS (19 sets, daily range): BP systolic 89–124; BP diastolic 53–73; BMI 29.7; BMI 27.9
[2025-02-23] MEDS: DILAUDID 1 MG IV (00:28)
[2025-02-23] MEDS: COREG 12.5 MG PO ×2 (02:46→13:59)
[2025-02-23 03:07] LABS: Hematocrit 36.8 % (39.0-52.0); Hemoglobin 13.5 g/dL (13.0-18.0); Mean Corp Hgb Conc. 36.7 g/dL (33.0-37.0); Mean Corpuscular Volume 84.0 fL (80.0-94.0); Nucleated Red Blood Cells % 0 % (-); Platelet Count 147 10^3/uL (130-400); Red Cell Dist. Width 13.2 % (11.5-14.5)
--- NOTE | 2025-02-23 03:15 | PTCARENOTE ---
Pt received from ED. HR 100% V-paced w/ underlying afib on telemetry. Pt states pain is best it has been rated 4/10 - pt looks comfortable. No guarding of abdomen, moving well. Pt requesting food, TT [employer] DES[employer] for diet order. RA. Rojas on R ankle.
Updated pt on plan of care, pt states understanding.
[2025-02-23 03:24] LABS: ALT (SGPT) 41 U/L (0-50); AST (SGOT) 35 U/L (17-59); Albumin 3.7 g/dl (3.5-5.0); Alkaline Phosphatase 73 U/L (38-126); Blood Urea Nitrogen 10 mg/dl (9-20); Calcium 8.7 mg/dl (8.4-10.2); Carbon Dioxide 30 mmol/L (22-30); Chloride 105 mmol/L (98-107); Estimated Creatinine Clearance 87 ml/min; Glucose 92 mg/dl (70-99); Potassium 3.1 mmol/L (3.5-5.1); Sodium 138 mmol/L (135-145); Total Protein 6.0 g/dl (6.3-8.2); eGFR > 60.00
[2025-02-23] MEDS: KCL 270 MEQ IV (04:43)
[2025-02-23] MEDS: DILAUDID 0.5 MG IV (07:26)
[2025-02-23 07:48] LABS: Glucose - Point of Care 88 mg/dl (70-99)
[2025-02-23] MEDS: ASPIR LOW (ENTERIC COATED) 81 MG PO (08:44)
[2025-02-23] MEDS: LIPITOR 40 MG PO (08:44)
[2025-02-23] MEDS: LEXAPRO 10 MG PO (08:44)
[2025-02-23] MEDS: PROTONIX 40 MG PO (08:45)
[2025-02-23] MEDS: BUMEX 2 MG PO (08:45)
[2025-02-23 09:15] LABS: C-Reactive Protein < 5.00 mg/L (0.0-10.00)
[2025-02-23] MEDS: ROXICODONE 10 MG PO ×4 (10:07→22:40)
[2025-02-23] MEDS: TORADOL 15 MG IV (10:07)
--- NOTE | 2025-02-23 10:38 | CON.GI ---
Addendum entered and electronically signed by Natalia Chen DO 02/23/25 12:20:
The patient was seen and examined by me independently in collaboration with the nurse practitioner.
Past medical history/social history/medications/allergies/family history reviewed.
Lab data and imaging data reviewed.
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
back. He has multiple presentations for chest pain, recent ischemic evaluation with stress echo with no evidence of inducible ischmic. He then underwent LHC without evidence of obstructive disease. CT shows cholelithiasis, borderline splenomegaly,
evidence of passive congestion into the liver. Prior CT scan from 01/13 with simlar findings, does note prior sleeve gastrectomy, moderate amount of fecal material in the rectum, diverticulosis and umbilical hernia with mild amount of panniculitis. On
his prior admissions, GI cocktail including viscous lidocaine, PPI, carafate were administered without improvement in pain. He received oral ketorolac this morning, states this significantly improved his pain. Reports he had prior EGD and
Colonoscopy, cannot recall when, likely at [facility].
CT A/P 01/23/25: Gallstones without wall thickening or biliary tract dilation. Cannot exclude gallbladder fundal adenomyomatosis. Limited evaluation of the intestinal tract without oral contrast. Borderline splenomegaly, unchanged. Findings
suggesting left ventricular hypertrophy and minor pericardial thickening. Small predominantly fat only containing umbilical hernia again seen with some mild stranding, stable compared to film on January 13, 2025.
CT A/P 01/13/25 w/ IV and PO Contrast: Evidence of passive hepatic venous congestion. Patent hepatic vasculature. Cholelithiasis without evidence of abnormal gallbladder distention or pericholecystic inflammation. No abnormal biliary dilation. The
spleen is mildly enlarged. The spleen has mildly irregular shape and contains a thin low-attenuation cleft which could be secondary to previous traumatic injury or infarction. There is a punctate calcified granuloma in the posterior aspect of the
spleen. Evidence for a prior sleeve gastrectomy surgery. No abnormal distention of the stomach, duodenum or jejunum. There is no abnormal small bowel wall thickening. There is no upper abdominal ascites. There is a small to moderate-sized
irregular shaped fat-containing umbilical hernia containing a mild amount of panniculitis. Oral contrast passes through the small bowel and into the colon. There is mild diverticulosis in the distal descending colon. There is moderate amount of
fecal material throughout the rectum which is mildly distended. There is mild diffuse thickening and trabeculation of the urinary bladder wall suggesting mild chronic outlet obstruction.
#Acute on Chronic left chest wall pain
-low suspicion for GI etiology-reports prior GI workup, no records to review
-no improvement with GI cocktail
-no risk factors for PUD
-admits to improvement when he was on milrinone, also had improvement with ketorolac
No plans for inpatient endoscopic evaluation. Can follow-up as an outpatient if still felt to be GI but I have very low suspicion for this. GI will sign off, please call with questions.
Original Note:
Consultation
-
Date/Time Consultation Requested: 02/23/25 0940
Date/Time Consultation Performed: 03/05/25 1030
Requesting Provider: Dalia Candelario MD
Performing Provider: EVELYN Danielle, Alyce Chen DO
Reason for Consultation: chest pain
Medical History
Chief Complaint / HPI
History of Present Illness:
Pt is a 59yo with hx multiple medical problem including afib on Xarelto, CAD, prior OK, dilated cardiomyopathy, HFrEF , CVA, HTN, NIDDM, splenomegaly, gastric sleeve, umbilical hernia, cholelithiasis, enlarged prostate, chronic bladder outlet
obstruction, DDD, anxiety present with recurrent admission with chest pain. Per chart he had prior evaluation for heart transplant and was declined about 2years ago due to elevated BMI(admits to being over 300lbs at that time and has since had
gastric sleeve) and hbg A1C. He was admitted 01/10-01/15 with unremarkable EGD and troponin minimally increased with concern for muscular component with recommended Tylenol and NSAID use with topical lidocaine and started on Escitalapram for Anxiety.
During admission underwent ischemic evaluation with a stress echocardiogram which revealed no evidence of inducible ischemia. Abdominal imaging showed passive hepatic congestion and cholelithiasis without cholecystitis and no common bile duct
dilatation and moderate stool burden . His liver function tests were mildly elevated at that time He return 01/16 with worsening chest pain with slight troponin increase without improvement with SL Nitro but some improvement morphine. During
second admission he completed cath 01/17/2025 which revealed no evidence of obstructive disease. He was given carafate, Protonix, and GI cocktail without change in pain and due OP with primary cardiology team at [facility]. He now presents again
for recurrent atypical chest pain. On admission noted with K 3.3 and bili 3.4 with otherwise normal LFT's with prior admission noted bili 3.9, AST 65, ALT 99, alk phos 116 and only 1 direct bili noted normal on 01/12.
In review with patient he has had pain for several years. He has been to multiple hospitals including [facility], [facility] and [facility] for heart transplant eval with eventual longer term Milrinone therapy with some improvement. He
is chest pain has been there intermittent for some time but admits last 2 months symptoms worse. Pain is improved with Morphine and now given Toradol with improvement. No change with prior GI medications as above. He describes pain as crampy and
severe leading him to tears with severity. He did have some vomiting with severity if pain but denies hematemesis. + wt loss since gastric sleeve. He denies any issues with odynophagia, dysphagia, GERD, diarrhea, constipation (stools every other
day), or rectal bleeding. Minimal NSAID use as recall Tylenol from [facility]. Hx EGD with gastric sleeve and colonoscopy in past at [facility]. Repeat CT 02/22 on admission with GB stones possible fundal adenomyomatosis ventricular hypertrophy,
pericardial thickening, fat containing umbilical hernia.
Past Medical History
Past Medical History: Arrhythmias (afib on Xarelto), CAD, CHF ( systolic and diastolic with reduced EF), CVA, HTN, NIDDM, OK, Psychiatric (anxiety) and Other (dilated cardiomyopathy, splenomegaly, umbilical hernia, cholelithiasis, enlarged prostate,
chronic bladder outlet obstruction, DDD)
Past Surgical History: Cardiac (ICD with pacer) and Other (gastric sleeve)
Social History
Tobacco: Non-Smoker
Alcohol: None
Drug: None
Living: [facility]
Family History
Family History: Other (no family hx GI issues )
Allergies / Home Medications
Allergy/AdvReac Type Severity Reaction Status Date / Time
No Known Allergies Allergy Verified 01/16/25 15:09
�Medication �Instructions �Recorded
aspirin 81 mg tablet,delayed 81 mg PO DAILY Blood Clot 01/10/25
release Prevention/Tx
atorvastatin 40 mg tablet (Lipitor) 40 mg PO DAILY High Cholesterol 01/10/25
bumetanide 2 mg tablet 2 mg PO DAILY Fluid 01/10/25
Retention/Swelling
carvedilol 12.5 mg tablet (Coreg) 12.5 mg PO Q12H Heart 01/10/25
Disease/Condition
empagliflozin 10 mg tablet 10 mg PO DAILY Diabetes 01/10/25
(Jardiance)
rivaroxaban 20 mg tablet (Xarelto) 20 mg PO QPM Blood Clot 01/10/25
Prevention/Tx
escitalopram oxalate 10 mg tablet 10 mg PO DAILY #30 tabs 01/15/25
acetaminophen 325 mg tablet 650 mg PO TIDPRN PRN fever or pain 01/16/25
(Tylenol)
docusate sodium 100 mg capsule 100 mg PO BIDPRN PRN constipation 01/16/25
glipizide 5 mg tablet 5 mg PO DAILY Diabetes 01/16/25
Held on 01/20/25.
Instructions: Apparently this
medication was on hold prior
to this admission. He did
not receive this medication
during this admission. Defer
restarting this medication to
original prescribing
physician.
therapeutic multivitamin 1 tab PO DAILY Supplement 01/16/25
nitroglycerin 0.4 mg sublingual 0.4 mg sublingual [id number] PRN 01/20/25
tablet chest pain #20 tabs
pantoprazole 40 mg tablet,delayed 40 mg PO DAILY #30 tabs 01/20/25
release
Review of Systems
-
History Source: Patient
Constitutional: Reports Weight Loss and Fatigue
EENT: Reports No Symptoms
Respiratory: Reports No Symptoms
Cardiac: Reports Chest Pain
Abdomen/GI: Reports Nausea and Vomiting
: Reports No Symptoms
Musculoskeletal: Reports No Symptoms
Skin: Reports No Symptoms
Neurological: Reports Headache
Endocrine: Reports No Symptoms
Hematologic/Lymphatic: Reports No Symptoms
Vital Signs
Temp Pulse Resp BP Pulse Ox
97.8 F 70 11 107/64 98
02/23/25 07:40 02/23/25 10:15 02/23/25 10:15 02/23/25 10:00 02/23/25 10:15
Physical Exam
Exam
General: Well Developed, Well Nourished and No Apparent Distress
HEENT: Normocephalic and Anicteric
Respiratory: Clear
Cardiac: Regular Rhythm and Other (pt point to left mid chest and admits to pain underneath mid rib area)
GI: Soft, Non Tender and Non Distended
Musculoskeletal: No Clubbing and No Cyanosis
Skin: Warm and Dry
Neuro: Awake, Alert and AO x 3
Psych: Calm
Results
WBC 5.0 10^3/uL (4.8-10.8) 02/23/25 02:51
Hgb 13.5 g/dL (13.0-18.0) 02/23/25 02:51
Hct 36.8 % (39.0-52.0) L 02/23/25 02:51
MCV 84.0 fL (80.0-94.0) 02/23/25 02:51
Plt Count 147 10^3/uL (130-400) 02/23/25 02:51
Absolute Neuts (auto) 2.3 10^3/uL (1.4-6.5) 02/23/25 02:51
Sodium 138 mmol/L (135-145) 02/23/25 02:51
Potassium 3.1 mmol/L (3.5-5.1) L 02/23/25 02:51
Chloride 105 mmol/L (98-107) 02/23/25 02:51
Carbon Dioxide 30 mmol/L (22-30) 02/23/25 02:51
BUN 10 mg/dl (9-20) 02/23/25 02:51
Creatinine 1.0 mg/dL (0.7-1.3) 02/23/25 02:51
Calcium 8.7 mg/dl (8.4-10.2) 02/23/25 02:51
Total Bilirubin 3.3 mg/dl (0.2-1.3) H 02/23/25 02:51
AST 35 U/L (17-59) 02/23/25 02:51
ALT 41 U/L (0-50) 02/23/25 02:51
Alkaline Phosphatase 73 U/L (38-126) 02/23/25 02:51
Diagnostic Image Results:
02/22/25 CT Abd/pelvis W Iv Cont
Gallbladder stones without wall thickening or biliary tract dilatation. Cannot exclude gallbladder fundal adenomyomatosis.
Limited evaluation of intestinal tract without oral contrast, without intestinal obstruction or free air.
Borderline splenomegaly, unchanged.
Findings suggesting left ventricular hypertrophy and minor pericardial thickening.
Small predominantly fat only containing umbilical hernia again seen with some mild stranding, stable from prior study January 13, 2025. Suggest clinical correlation.
01/19/25 CT Chest With Iv Contrast
1. No acute findings in the chest.
2. Mild cardiomegaly with a trace pericardial effusion.
3. Cholelithiasis.
01/13/25 CT Abd/pel W Iv And Oral Contr
1. Mild splenomegaly.
2. Moderate passive hepatic venous congestion in the liver.
3. Cholelithiasis.
4. Mild diverticulosis in the descending colon.
5. Moderate amount of fecal material in the rectum.
6. Small to moderate-sized fat-containing umbilical hernia.
7. Mildly enlarged prostate gland.
8. Mild chronic urinary bladder outlet obstruction.
9. Biventricular AICD in place.
10. Severe discogenic degenerative disease at L5/S1.
Prior GI Procedures:
EGD: with gastric sleeve
Colonoscopy: prior at [facility]
Assessment / Plan
-
Pt is a 59yo with hx multiple medical problem including afib on Xarelto, CAD, prior OK, dilated cardiomyopathy, HFrEF , CVA, HTN, NIDDM, splenomegaly, gastric sleeve, umbilical hernia, cholelithiasis, enlarged prostate, chronic bladder outlet
obstruction, DDD, anxiety present with recurrent admission with chest pain. Per chart he had prior evaluation for heart transplant and was declined about 2years ago due to elevated BMI(admits to being over 300lbs at that time and has since had
gastric sleeve) and hbg A1C. He was admitted 01/10-01/15 with unremarkable EGD and troponin minimally increased with concern for muscular component with recommended Tylenol and NSAID use with topical lidocaine and started on Escitalapram for Anxiety.
During admission underwent ischemic evaluation with a stress echocardiogram which revealed no evidence of inducible ischemia. Abdominal imaging showed passive hepatic congestion and cholelithiasis without cholecystitis and no common bile duct
dilatation and moderate stool burden . His liver function tests were mildly elevated at that time He return 01/16 with worsening chest pain with slight troponin increase without improvement with SL Nitro but some improvement morphine. During
second admission he completed cath 01/17/2025 which revealed no evidence of obstructive disease. He was given carafate, Protonix, and GI cocktail without change in pain and due OP with primary cardiology team at [facility] [place]. He now presents again
for recurrent atypical chest pain. On admission noted with K 3.3 and bili 3.4 with otherwise normal LFT's with prior admission noted bili 3.9, AST 65, ALT 99, alk phos 116 and only 1 direct bili noted normal on 01/12. Hx EGD with gastric sleeve and
colonoscopy in past at [facility] [place]. Repeat CT 02/22 on admission with GB stones possible fundal adenomyomatosis ventricular hypertrophy, pericardial thickening, fat containing umbilical hernia.
-chest pain Atypical - not improved with GI medications
-elevated bilirubin and prior elevated LFT's with passive hepatic congestion on imaging
-hx wt loss after gastric sleeve
-moderate stool on prior CT
-gallbladder stones
afib on Xarelto, CAD, prior OK, dilated cardiomyopathy, HFrEF , CVA, HTN, NIDDM, splenomegaly, gastric sleeve, umbilical hernia, cholelithiasis, enlarged prostate, chronic bladder outlet obstruction, DDD, anxiety
PLAN:
Etiology of pain related to cardiac issue with similar pain pattern in past cardiac issues, muscular with improvement now with Tordol just given vs other
doubt GI related as no improvement with multiple GI meds and GI cocktail and associated with shortness of breath with pain left mid chest
no signs of GI bleeding with normal hbg and denies rectal bleeding
minimal LFT elevation and improved likely hepatic congestion as noted on CT
cont PPI BID
will add miralax daily with some stool burden on prior CT and current narcotic use
cont ADA diet
if NSAID needed for treatment would cont Protonix as possible trial of Colchicine
-
-
Thank you for consultation and allowing me to participate in the patient's care. Please call the continuous improvement lead GI physician during the after hours with any questions or concerns.
--- NOTE | 2025-02-23 10:52 | CON.CAR ---
Consultation
Consultation Request
Date/Time Consultation Requested: 02/23/25 8:00AM
Date/Time Consultation Performed: 02/23/25 1030Am
Requesting Provider: DR Candelario
Performing Provider: Dr Healy
Reason for Consultation: chest pain
Medical History
-
Chief Complaint: chest pain
History of Present Illness:
59-year-old male with past medical history of nonischemic cardiomyopathy, [employer]EL[employer]-D, chronic heart failure with reduced ejection fraction, permanent fibrillation on Xarelto, diabetes, CKD, history of stroke obstructive sleep apnea presents with
continued episodes of chest pain. The patient resides in the [facility] residential system. He is awaiting arrangement. He states that he will get a tightness and a stabbing discomfort in the center of his chest. It does not seem to radiate. It is
moderate to severe. It does not seem positional related. He does not related to eating. He has no fevers or chills. He has no coughing or wheezing. He denies any orthopnea, PND, or edema. He has had this pain intermittently for several months.
No recent URI infections.
PMH:
Nonischemic cardiomyopathy, EF 20-25%
Cardiac Cath 01/31 with no significant CAD
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
Chronic heart failure with reduced EF
Permanent atrial fibrillation
Chronic Xarelto therapy
Diabetes
CKD
History of CVA
History of bariatric surgery in 2021
GLENIS
Past Medical History
Past Surgical History: Cardiac (BIV ICD [place] [facility])
Social History
Tobacco: Non-Smoker
Alcohol: None
Drug: None
Living: [facility]
Family History
Family History: CAD and Hypertension
Allergies / Home Medications
Allergy/AdvReac Type Severity Reaction Status Date / Time
No Known Allergies Allergy Verified 01/16/25 15:09
�Medication �Instructions �Recorded �Confirmed �Type
aspirin 81 mg tablet,delayed 81 mg PO DAILY Blood Clot 01/10/25 01/16/25 History
release Prevention/Tx
atorvastatin 40 mg tablet (Lipitor) 40 mg PO DAILY High Cholesterol 01/10/25 01/16/25 History
bumetanide 2 mg tablet 2 mg PO DAILY Fluid 01/10/25 01/16/25 History
Retention/Swelling
carvedilol 12.5 mg tablet (Coreg) 12.5 mg PO Q12H Heart 01/10/25 01/16/25 History
Disease/Condition
empagliflozin 10 mg tablet 10 mg PO DAILY Diabetes 01/10/25 01/16/25 History
(Jardiance)
rivaroxaban 20 mg tablet (Xarelto) 20 mg PO QPM Blood Clot 01/10/25 01/16/25 History
Prevention/Tx
escitalopram oxalate 10 mg tablet 10 mg PO DAILY #30 tabs 01/15/25 01/16/25 Rx
acetaminophen 325 mg tablet 650 mg PO TIDPRN PRN fever or pain 01/16/25 01/16/25 History
(Tylenol)
docusate sodium 100 mg capsule 100 mg PO BIDPRN PRN constipation 01/16/25 01/16/25 History
glipizide 5 mg tablet 5 mg PO DAILY Diabetes 01/16/25 01/16/25 History
Held on 01/20/25.
Instructions: Apparently this
medication was on hold prior
to this admission. He did
not receive this medication
during this admission. Defer
restarting this medication to
original prescribing
physician.
therapeutic multivitamin 1 tab PO DAILY Supplement 01/16/25 01/16/25 History
nitroglycerin 0.4 mg sublingual 0.4 mg sublingual [id number] PRN 01/20/25 Rx
tablet chest pain #20 tabs
pantoprazole 40 mg tablet,delayed 40 mg PO DAILY #30 tabs 01/20/25 Rx
release
Review of Systems
-
History Source: Patient
Constitutional: Fatigue
EENT: No Symptoms
Respiratory: No Symptoms
Cardiac: Chest Pain
Abdomen/GI: No Symptoms
: No Symptoms
Musculoskeletal: No Symptoms
Skin: No Symptoms
Neurological: No Symptoms
Endocrine: No Symptoms
Hematologic/Lymphatic: No Symptoms
Physical Exam
Vital Signs
Temp Pulse Resp BP Pulse Ox
97.8 F 70 11 107/64 98
02/23/25 07:40 02/23/25 10:15 02/23/25 10:15 02/23/25 10:00 02/23/25 10:15
Lab Results
02/23/25 02:51
02/23/25 02:51
Troponin I 0.029 ng/ml 02/22/25 19:40
Sxk-J-Phawztbroqi Pept 890 pg/ml 02/22/25 19:40
Physical Exam
General: Well Developed, Well Nourished and No Apparent Distress
HEENT: Normocephalic and Anicteric
Respiratory: Clear and Non Labored Respirations
Cardiac: S1/S2, Regular Rhythm and Murmur (05/14 syst LSB)
GI: Soft, Non Tender and Non Distended
Skin: Warm and Dry
Neuro: AO x 3
Psych: Calm
Impression / Plan
-
Primary Cardiology provider: [facility] [place]
Assessment:
Chest pain
Nonischemic cardiomyopathy, EF as low as 18% in past, 36% by echo 06/2023
Cardiac cath 01/31 with no significant obstructive CAD
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
Chronic heart failure with reduced EF
Permanent atrial fibrillation
Chronic Xarelto therapy
Diabetes
CKD
History of CVA
History of bariatric surgery in 2021
GLENIS
ECHO 06/2023 OSH: EF 36%
Echo 01/11/2025: EF 20 to 25% with severe global hypokinesis with inferoseptal wall appearing to be hypokinetic. Mildly dilated left ventricle. Mild concentric LVH. No left atrial appendage thrombus. Grade 3 DD. Moderately dilated left atrium.
No significant valve disease
Plan:
-He returns today with continued complaints of chest pain. The etiology is remains unclear.
-Cardiac cath last month has nonobstructive coronary artery disease. Device check reveals no significant signs of volume overload or congestive heart failure.
-CT scan last admission revealed no pulmonary embolism or acute findings. The patient is also already on Xarelto cardiac troponin remains low. Will trend.
-His clinical story does not sound like pericarditis and CRP is normal. ECG is paced unable to assess.
-Agree with plans for GI evaluation for possible reflux
-If no clear etiology could consider a brief trial of colchicine.
-His BiV ICD has less than 3 months on battery. This is not urgent to replace this as an inpatient. The device will beep when it is even closer to end-of-life.
-Continue Coreg, Bumex, aspirin, and atorvastatin.
-Continue Protonix.
He has history of intolerance to magy/arb/arni in past with significant dizziness/lightheadedness
Data Reviewed
-
EKG: Tracing Personally Visualized and interpreted
Medical Tests (Nuc Med, Echo etc): Report Reviewed by me
Labs: Labs Reviewed by me
Old Records: Reviewed
--- NOTE | 2025-02-23 11:05 | CM ---
Patient seen bedside w/ guard. Patient is from [facility]. Patient is independent at baseline.
Patient is a 59-year-old male from [facility] complaining of sharp intermittent left upper abdominal pain over spleen.
Patient admitted obs. OOBS form on chart
Plan: Return to [facility] when medically stable
[2025-02-23] MEDS: MIRALAX 17 GRAMS PO (12:40)
[2025-02-23 12:42] LABS: Glucose - Point of Care 125 mg/dl (70-99)
--- NOTE | 2025-02-23 14:04 | PTCARENOTE ---
pt received at change of shift from previous RN. pt resting in bed,AAOx3. pt reports pain in left upper abdomen. medicated per jul. see worklist for full nursing assessment. pt updated on plan of care.
--- NOTE | 2025-02-23 16:30 | W.PN.HOSP.TC ---
Today's Communication/Plan
-
See note
Continue symptomatic care
Assessment / Plan
Assessment / Plan
1. Left-sided chest pain
- Patient undergone extensive workup last month for identical left-sided chest pain/sternal discomfort
- Underwent left heart catheterization for minimal troponin elevation, no clinical relevant coronary disease found
- Troponin remains negative this admission.
- CRP less than 5 and low chances of pericarditis. EKG showing paced rhythm and cannot be evaluated for ST segment changes
- Patient already on Xarelto and low risk for VTE
- Cardiology evaluated and help appreciated. May require empiric trial of colchicine if symptoms does not improve
- GI evaluated and has signed off as peptic ulcer disease/gastritis. Less
- Patient had borderline splenomegaly although no splenic infarction reported
- Continue symptomatic care at this point with addition of oral pain medication for pain control beside IV pain meds
2. Combined systolic/diastolic heart failure
- No signs suggestive of ongoing heart failure exacerbation
- Maintain on regimen of aspirin/Lipitor/Coreg
- Continue preadmission dose of Bumex
3. NIDDM
- Currently not on glipizide, changed? Continue
- Maintain on insulin sliding scale
4. History of AICD
- Patient AICD battery less than 3 months, requested to be evaluated by cardiology for generator change
- Cardiology evaluated and recommended an outpatient change
History of prior NM
History of gastric bypass
Permanent A-fib on Xarelto
History of stroke
Cholelithiasis
Small hemangiomas of chest chest abdomen
Umbilical hernia
Chronic urinary bladder outlet obstruction
Spinal degenerative joint disease
DVT prophylaxis -Eliquis
Full code
Care plan discussed with cardiology/GI
Total time spent 58 minutes
Anticipated Discharge: 24 - 48 hours
Subjective/Interval History
-
Date of Service: February 23, 2025
Complain of significant left lower chest and sternal discomfort
Ongoing dry heaving without vomiting
No other reported acute issues
Objective Data
-
Vital Signs:
Vital Signs
Temp Pulse Resp BP Pulse Ox
98 F 70 13 110/69 98
02/23/25 15:29 02/23/25 13:59 02/23/25 13:15 02/23/25 13:59 02/23/25 13:15
I&O
02/22/25 02/23/25 02/24/25
06:59 06:59 06:59
Intake Total 240 / 240 480 / 480
Balance 240 / 240 480 / 480
Review of Systems
-
Respiratory: Denies Trouble Breathing
Cardiac: Reports Chest Pain; Denies Diaphoresis or Palpitations
Abdomen/GI: Reports Abdominal Pain and Nausea; Denies Vomiting
Physical Exam
-
General: Appears in Distress and Pain
HEENT: Negative Oxygen
Respiratory: Clear to Auscultation and Other (No pain on palpation)
Musculoskeletal: No Edema
Neuro: Awake, Alert, Oriented, No Motor Deficits and Nonfocal/Grossly Intact
Psych: Calm
[2025-02-23 17:09] LABS: Glucose - Point of Care 101 mg/dl (70-99)
[2025-02-23] MEDS: XARELTO 20 MG PO (17:50)
[2025-02-23] MEDS: NSS (PRESERVATIVE FREE) 10 ML IV (21:06)
[2025-02-23] MEDS: PROTONIX IV 40 MG IV (21:06)
[2025-02-23 21:17] LABS: Glucose - Point of Care 117 mg/dl (70-99)
[2025-02-24] MEDS: COREG 12.5 MG PO ×2 (02:48→12:55)
[2025-02-24 02:50] VITALS: BP 117/70
[2025-02-24 03:32] LABS: Hematocrit 36.9 % (39.0-52.0); Hemoglobin 13.6 g/dL (13.0-18.0); Mean Corp Hgb Conc. 36.9 g/dL (33.0-37.0); Mean Corpuscular Volume 85.8 fL (80.0-94.0); Nucleated Red Blood Cells % 0 % (-); Platelet Count 146 10^3/uL (130-400); Red Cell Dist. Width 13.2 % (11.5-14.5)
[2025-02-24 04:08] LABS: ALT (SGPT) 37 U/L (0-50); AST (SGOT) 30 U/L (17-59); Albumin 3.5 g/dl (3.5-5.0); Alkaline Phosphatase 69 U/L (38-126); Blood Urea Nitrogen 12 mg/dl (9-20); Calcium 8.7 mg/dl (8.4-10.2); Carbon Dioxide 29 mmol/L (22-30); Chloride 104 mmol/L (98-107); Estimated Creatinine Clearance 87 ml/min; Glucose 89 mg/dl (70-99); Potassium 3.8 mmol/L (3.5-5.1); Sodium 138 mmol/L (135-145); Total Protein 5.7 g/dl (6.3-8.2); eGFR > 60.00
[2025-02-24 06:00] VITALS: BMI 28.4
[2025-02-24] MEDS: LEXAPRO 10 MG PO (07:40)
[2025-02-24] MEDS: ASPIR LOW (ENTERIC COATED) 81 MG PO (07:40)
[2025-02-24] MEDS: LIPITOR 40 MG PO (07:40)
[2025-02-24] MEDS: FARXIGA 10 MG PO (07:40)
[2025-02-24] MEDS: BUMEX 2 MG PO (07:40)
[2025-02-24 07:41] VITALS: BP 102/83
[2025-02-24] MEDS: PROTONIX IV 40 MG IV ×2 (07:41→21:02)
[2025-02-24] MEDS: ROXICODONE 10 MG PO ×2 (07:41→13:57)
[2025-02-24] MEDS: NSS (PRESERVATIVE FREE) 10 ML IV ×2 (07:41→21:02)
[2025-02-24] MEDS: MIRALAX 17 GRAMS PO (07:42)
[2025-02-24 08:03] LABS: Glucose - Point of Care 105 mg/dl (70-99)
--- NOTE | 2025-02-24 09:02 | W.PN.CARDCBS ---
Today's Communication / Plan
-
With continued chest pains. Will add colchicine 0.6 mg daily although I am not convinced this is pericarditis.
Troponin is unremarkable and recent cardiac cath with no significant obstructive coronary artery disease.
Continue medical therapy for chronic heart failure with reduced ejection fraction. Continue Coreg, Bumex, and Farxiga.
Continue Xarelto for permanent atrial fibrillation and biventricular ICD.
Will need to discuss with his outpatient team at [facility]BI[employer] SECURITY ARCHITECT Sailaja Farah to decide on timing of generator change
Impression / Plan
-
Primary Cardiology provider: Sailaja RIVAS of [facility], [place]
Assessment:
Chest pain
Nonischemic cardiomyopathy, EF as low as 18% in past, 36% by echo 06/2023
Cardiac cath 01/31 with no significant obstructive CAD
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
Chronic heart failure with reduced EF
Permanent atrial fibrillation
Chronic Xarelto therapy
Diabetes
CKD
History of CVA
History of bariatric surgery in 2021
GLENIS
ECHO 06/2023 OSH: EF 36%
Echo 01/11/2025: EF 20 to 25% with severe global hypokinesis with inferoseptal wall appearing to be hypokinetic. Mildly dilated left ventricle. Mild concentric LVH. No left atrial appendage thrombus. Grade 3 DD. Moderately dilated left atrium.
No significant valve disease
Plan:
-He has continued complaints of chest pain. The etiology is remains unclear.
-Cardiac cath last month has nonobstructive coronary artery disease. Device check reveals no significant signs of volume overload or congestive heart failure.
-CT scan last admission revealed no pulmonary embolism or acute findings. The patient is also already on Xarelto, cardiac troponin remains low.
-His clinical story does not sound like pericarditis and CRP is normal. ECG is paced unable to assess.
-GI evaluation overall unremarkable. Will add colchicine 0.6 mg daily.
-His BiV ICD has less than 3 months on battery. This is not urgent to replace this as an inpatient. The device will beep when it is even closer to end-of-life.
-Continue Coreg, Bumex, aspirin, and atorvastatin. proBNP is normal with no signs of volume overload.
-Continue Protonix.
He has history of intolerance to magy/arb/arni in past with significant dizziness/lightheadedness
Progress Note - Workers Compensation Claims Examiner
Subjective
Date of Service: February 24, 2025
Still with chest pains. Continue to wax and wane.
Objective
Labs:
02/24/25 02:56
02/24/25 02:56
Labs
Hgb 13.6 g/dL (13.0-18.0) 02/24/25 02:56
Hct 36.9 % (39.0-52.0) L 02/24/25 02:56
Plt Count 146 10^3/uL (130-400) 02/24/25 02:56
Sodium 138 mmol/L (135-145) 02/24/25 02:56
Potassium 3.8 mmol/L (3.5-5.1) 02/24/25 02:56
BUN 12 mg/dl (9-20) 02/24/25 02:56
Creatinine 1.0 mg/dL (0.7-1.3) 02/24/25 02:56
Glucose 89 mg/dl (70-99) 02/24/25 02:56
Troponins
02/22/25
19:40
Troponin I 0.029
Vital Signs and I&O:
Vital Signs
Temp Pulse Resp BP Pulse Ox
98.8 F 70 14 102/83 94
02/24/25 07:50 02/24/25 07:40 02/24/25 05:45 02/24/25 07:40 02/24/25 05:45
Vital Signs
Temp Pulse Resp BP Pulse Ox
98.8 F 70 14 102/83 94
02/24/25 07:50 02/24/25 07:40 02/24/25 05:45 02/24/25 07:40 02/24/25 05:45
Intake & Output
02/22/25 02/23/25 02/24/25 02/25/25
06:59 06:59 06:59 06:59
Intake Total 240 / 240 960 / 960
Output Total 1200 / 1200
Balance 240 / 240 -240 / -240
Physical Exam
Physical Exam
GEN: No distress, awake, Ox3
HEENT: supple, anicteric, mmm
LUNGS: CTA, no wheezes/rales
CV: Reg, S1/S2, 1/6 syst LSB, no gallop
ABD: soft, BS+, NT/ND
EXT: No edema
NEURO: Gross non-focal
SKIN: No rash
--- NOTE | 2025-02-24 09:20 | W.PN.HOSP.TC ---
Today's Communication/Plan
-
Pain continues. As most serious causes are ruled out, we may have to focus on symptom management to come up with a reasonable discharge plan.
Assessment / Plan
Assessment / Plan
59 man with a history of:
CAD (prior [place]),
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
ICD
permanent A-fib (on Xarelto)
CVA
ycw-zecjszt-zpbyohypc diabetes mellitus - DM 2
gastric bypass
cholelithiasis
mild splenomegaly
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
small�moderate fat-containing umbilical hernia
mildly enlarged prostate gland
mild chronic urinary bladder outlet obstruction,
severe DDD L5-S1
Gastric bypass
ICD
Presents with sharp intermittent left upper abdominal pain
1. Left-sided chest pain - continues
- Patient undergone extensive workup last month for identical left-sided chest pain/sternal discomfort
- Underwent left heart catheterization for minimal troponin elevation, no clinical relevant coronary disease found
- Troponin remains negative this admission.
- CRP less than 5 and low chances of pericarditis. EKG showing paced rhythm and cannot be evaluated for ST segment changes
- Patient already on Xarelto and low risk for VTE
- Cardiology evaluated and help appreciated. May require empiric trial of colchicine if symptoms does not improve
- GI evaluated and has signed off as peptic ulcer disease/gastritis is less likely
- Patient had borderline splenomegaly although no splenic infarction reported
- Continue symptomatic care at this point with addition of oral pain medication for pain control beside IV pain meds
2. Combined systolic/diastolic heart failure
- No signs suggestive of ongoing heart failure exacerbation
- Maintain on regimen of aspirin/Lipitor/Coreg
- Continue preadmission dose of Bumex
3. NIDDM
- Currently not on glipizide, changed? Continue
- Maintain on insulin sliding scale
4. History of AICD
- Patient AICD battery less than 3 months, requested to be evaluated by cardiology for generator change
- Cardiology evaluated and recommended an outpatient change
DVT prophylaxis -Eliquis
Full code
Anticipated Discharge: > 48 hours
Subjective/Interval History
-
Date of Service: February 24, 2025
Pain continues.
Objective Data
-
Labs:
Laboratory Results
02/24/25
02:56
WBC 4.9
Hgb 13.6
Hct 36.9 L
Plt Count 146
Sodium 138
Potassium 3.8
Chloride 104
Carbon Dioxide 29
BUN 12
Creatinine 1.0
Glucose 89
Calcium 8.7
Total Bilirubin 2.5 H
AST 30
ALT 37
Alkaline Phosphatase 69
Vital Signs:
Vital Signs
Temp Pulse Resp BP Pulse Ox
98.8 F 70 14 102/83 94
02/24/25 07:50 02/24/25 07:40 02/24/25 05:45 02/24/25 07:40 02/24/25 05:45
I&O
02/23/25 02/24/25 02/25/25
06:59 06:59 06:59
Intake Total 240 / 240 960 / 960
Output Total 1200 / 1200
Balance 240 / 240 -240 / -240
Review of Systems
-
History Source: Patient
All other systems: Reviewed and negative
Cardiac: Reports Chest Pain
Physical Exam
-
General: Well Developed, Well Nourished, No Apparent Distress and Comfortable
HEENT: Normocephalic, Atraumatic, Moist Mucous Membranes, Nose Appears Normal and Ears Appear Normal
Respiratory: Clear to Auscultation
Cardiac: Regular Rhythm and S1/S2
GI: Soft, Nontender and Nondistended
Musculoskeletal: No Clubbing, No Cyanosis and No Edema
Skin: Warm and Dry
Psych: Calm
Data Reviewed
-
Labs: Labs Reviewed by me
[2025-02-24] MEDS: COLCHICINE 0.6 MG PO (09:34)
[2025-02-24 12:08] VITALS: BP 135/76
[2025-02-24 13:05] LABS: Glucose - Point of Care 107 mg/dl (70-99)
[2025-02-24 16:47] LABS: Glucose - Point of Care 110 mg/dl (70-99)
[2025-02-24] MEDS: XARELTO 20 MG PO (17:29)
[2025-02-24 17:31] VITALS: BP 113/62
[2025-02-24 22:01] LABS: Glucose - Point of Care 131 mg/dl (70-99)
--- NOTE | 2025-02-24 22:44 | PTCARENOTE ---
pt rec'vd from ICU at 21:55, pt ambulated to bed , two officers at the bed side. vs, tele placed,pt requested and rec'vd food, assessed. oriented to unit.
[2025-02-24 23:00] VITALS: BP 137/72; BMI 28.3
[2025-02-25] MEDS: COREG 12.5 MG PO ×2 (01:40→13:47)
[2025-02-25 03:00] VITALS: BP 130/78
[2025-02-25 05:21] VITALS: BMI 28.4
[2025-02-25] MEDS: ROXICODONE 5 MG PO (05:29)
[2025-02-25 06:28] LABS: Hematocrit 38.9 % (39.0-52.0); Hemoglobin 13.8 g/dL (13.0-18.0); Mean Corp Hgb Conc. 35.5 g/dL (33.0-37.0); Mean Corpuscular Volume 89.4 fL (80.0-94.0); Platelet Count 149 10^3/uL (130-400); Red Cell Dist. Width 13.0 % (11.5-14.5)
[2025-02-25 06:48] LABS: ALT (SGPT) 33 U/L (0-50); AST (SGOT) 27 U/L (17-59); Albumin 3.6 g/dl (3.5-5.0); Alkaline Phosphatase 79 U/L (38-126); Blood Urea Nitrogen 12 mg/dl (9-20); Calcium 8.9 mg/dl (8.4-10.2); Carbon Dioxide 29 mmol/L (22-30); Chloride 103 mmol/L (98-107); Estimated Creatinine Clearance 109 ml/min; Glucose 97 mg/dl (70-99); Potassium 3.7 mmol/L (3.5-5.1); Sodium 136 mmol/L (135-145); Total Protein 6.0 g/dl (6.3-8.2); eGFR > 60.00
[2025-02-25 07:20] VITALS: BP 112/63
[2025-02-25 08:07] LABS: Glucose - Point of Care 101 mg/dl (70-99)
[2025-02-25] MEDS: LIPITOR 40 MG PO (08:36)
[2025-02-25] MEDS: FARXIGA 10 MG PO (08:37)
[2025-02-25] MEDS: LEXAPRO 10 MG PO (08:37)
[2025-02-25] MEDS: BUMEX 2 MG PO (08:37)
[2025-02-25] MEDS: ASPIR LOW (ENTERIC COATED) 81 MG PO (08:37)
[2025-02-25] MEDS: COLCHICINE 0.6 MG PO (08:37)
[2025-02-25] MEDS: NSS (PRESERVATIVE FREE) 10 ML IV (08:38)
[2025-02-25] MEDS: PROTONIX IV 40 MG IV (08:38)
[2025-02-25] MEDS: MIRALAX PO (08:43)
[2025-02-25] MEDS: ROXICODONE 10 MG PO ×2 (10:43→15:01)
--- NOTE | 2025-02-25 10:51 | W.PN.CARDCBS ---
Addendum entered and electronically signed by Sandee Huff PA-C 02/25/25 16:49:
Patient is scheduled with Habitat Management Coordinator 03/15/2025 as outpatient at [facility] to discuss timing of ICD generator change.
Addendum entered and electronically signed by Bear Sapp DO 02/25/25 11:30:
I saw and examined the patient.
The Kitchen Lead's note was reviewed and I agree with the note.
Comment:
Plan:
He continues with atypical chest pain. Recent cardiac catheterization did not show obstructive CAD.
Continue trial of colchicine however not clear that he has pericarditis. CRP was within normal limits.
Will reach out to [facility] to arrange for outpatient follow up for routine generator change
-ICD Device check reveals no significant signs of volume overload or congestive heart failure. proBNP unremarkable at 890. He does not appear to be volume overloaded.
-CT scan last admission revealed no pulmonary embolism or acute findings. The patient is also already on Xarelto which further reduce his risk of PE
-GI evaluation overall unremarkable.
Original Note:
Today's Communication / Plan
-
Continue trial of colchicine.
Continue GDMT with Coreg, Bumex, aspirin, and atorvastatin.
[facility] will reach out to [facility] to arrange for outpatient generator change
Stable from cardiac standpoint for discharge
Impression / Plan
-
Primary Cardiology provider: Sailaja RIVAS of [facility], [place]
Assessment:
Chest pain
Nonischemic cardiomyopathy, EF as low as 18% in past, 36% by echo 06/2023
Cardiac cath 01/31 with no significant obstructive CAD
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
Chronic heart failure with reduced EF
Permanent atrial fibrillation
Chronic Xarelto therapy
Diabetes
CKD
History of CVA
History of bariatric surgery in 2021
GLENIS
ECHO 06/2023 OSH: EF 36%
Echo 01/11/2025: EF 20 to 25% with severe global hypokinesis with inferoseptal wall appearing to be hypokinetic. Mildly dilated left ventricle. Mild concentric LVH. No left atrial appendage thrombus. Grade 3 DD. Moderately dilated left atrium.
No significant valve disease
Cardiac cath 01/17/2025 with no obstructive coronary artery disease
Plan:
-He has continued complaints of chest pain. Troponin undetectable this admission. ECG is paced without abnormality. The etiology is remains unclear.
-Cardiac cath last month has nonobstructive coronary artery disease.
-ICD Device check reveals no significant signs of volume overload or congestive heart failure. proBNP unremarkable at 890. He does not appear to be volume overloaded.
-CT scan last admission revealed no pulmonary embolism or acute findings. The patient is also already on Xarelto which further reduce his risk of PE
-GI evaluation overall unremarkable.
-His clinical story does not sound like pericarditis and CRP is normal. However given unclear etiology colchicine 0.6 mg added 02/24/2025. He does note some improvement of chest discomfort but not complete resolution after initiation of colchicine
-His BiV ICD has less than 3 months on battery. This is not urgent to replace this as an inpatient. The device will beep when it is even closer to end-of-life. We have reached out to his cycle touring guide at [facility] to
help facilitate elective outpatient generator change.
-Continue Coreg, Bumex, aspirin, and atorvastatin.
-Continue Protonix.
-He has history of intolerance to magy/arb/arni in past with significant dizziness/lightheadedness
I personally reached out to EVELYN Mays at [facility] outside upholsterer as well as administration at [facility] regarding ICD generator change. Device change can be arranged through [facility] at [phone]. Information has been communicated
to Sailaja
Plan discussed with patient, nursing, hospitalist
Progress Note - Eligibility Consultant
Subjective
Date of Service: February 25, 2025
Pt seen and examined. Lying in bed resting. Still complaining of epigastric and substernal chest pain with some improvement but not complete resolution with addition of colchicine
Objective
Labs:
02/25/25 05:43
02/25/25 05:43
Labs
Hgb 13.8 g/dL (13.0-18.0) 02/25/25 05:43
Hct 38.9 % (39.0-52.0) L 02/25/25 05:43
Plt Count 149 10^3/uL (130-400) 02/25/25 05:43
Sodium 136 mmol/L (135-145) 02/25/25 05:43
Potassium 3.7 mmol/L (3.5-5.1) 02/25/25 05:43
BUN 12 mg/dl (-) 02/25/25 05:43
Creatinine 0.8 mg/dL (0.7-1.3) 02/25/25 05:43
Glucose 97 mg/dl (70-99) 02/25/25 05:43
Troponins
02/22/25
19:40
Troponin I 0.029
Vital Signs and I&O:
Vital Signs
Temp Pulse Resp BP Pulse Ox
98.0 F 72 16 112/63 97
02/25/25 07:20 02/25/25 07:20 02/25/25 07:20 02/25/25 07:20 02/25/25 07:20
Vital Signs
Temp Pulse Resp BP Pulse Ox
98.0 F 72 16 112/63 97
02/25/25 07:20 02/25/25 07:20 02/25/25 07:20 02/25/25 07:20 02/25/25 07:20
Intake & Output
02/23/25 02/24/25 02/25/25 02/26/25
06:59 06:59 06:59 06:59
Intake Total 240 / 240 960 / 960 960 / 960 240 / 240
Output Total 1200 / 1200 1900 / 1900
Balance 240 / 240 -240 / -240 -940 / -940 240 / 240
Physical Exam
Physical Exam
GEN: No distress, awake, Ox3
HEENT: supple, anicteric, mmm
LUNGS: CTA, no wheezes/rales
CV: Reg, S1/S2, no murmur, rub or gallop
ABD: soft, BS+, NT/ND
EXT: No edema, clubbing or cyanosis
NEURO: Gross non-focal
SKIN: No rash, warm, dry, pink
[2025-02-25 11:20] VITALS: BP 130/81
[2025-02-25 11:33] LABS: Glucose - Point of Care 103 mg/dl (70-99)
--- NOTE | 2025-02-25 13:23 | W.DCSUMMARY ---
Discharge Summary
Discharge Data
Date of Admission: 02/22/25
Date of Discharge: 02/25/25
-
Pending Results: No
Hospital Course
59-year-old male past medical history of CAD, prior RI, dilated cardiomyopathy, combined systolic/diastolic CHF with ICD, permanent atrial fibrillation on Xarelto, hypertension, CVA, anxiety, diabetes
Presented for chest discomfort. Evaluated by cardiology not believe this was cardiac related though started on colchicine for pericarditis. Troponin unremarkable and recent cardiac cath with no significant obstructive CAD. Continue medical
therapy for heart failure with reduced ejection fraction which includes Coreg Bumex Farxiga. Continue Xarelto for permanent atrial fibrillation and BiV ICD. Was also seen by gastroenterology low suspicion for GI etiology. Outpatient follow-up
with gastroenterology.
Seen and examined on day of discharge. No new complaints. No acute overnight events.
NAD
Scleral Anicteric
MMM
No JVD
CTABL
RRR, S1/S2
Soft, NT, ND, BS+
Warm, Dry
AAOx3
Calm
More than 30 minutes spent in discharge including
Final examination of the patient
Summarizing hospital stay
Instructions for continuing care to all relevant caregivers
Preparation of discharge records, prescriptions, and referral forms
Total time spent (in minutes): 33mins
Discharge Plan
-
Patient Disposition: Nursing Home
Discharge Diagnosis/Procedures: chest pain
Condition: Fair
Diet: As tolerated
Activity: As tolerated
Specialty Instructions: Weigh Daily- Call MD for wt gain/loss 3 lbs overnight/5 lbs in 1 week
Referrals:
[facility] [Family Provider, General]
Prescriptions:
New
colchicine 0.6 mg Tablet
0.6 mg PO DAILY Qty: 10 0RF
Continued
atorvastatin [Lipitor] 40 mg Tablet
40 mg PO DAILY
carvedilol [Coreg] 12.5 mg Tablet
12.5 mg PO Q12H
bumetanide 2 mg Tablet
2 mg PO DAILY
aspirin 81 mg Tablet,Delayed Release (Dr/Ec)
81 mg PO DAILY
Xarelto 20 mg Tablet
20 mg PO QPM
Jardiance 10 mg Tablet
10 mg PO DAILY
escitalopram oxalate 10 mg Tablet
10 mg PO DAILY Qty: 30 0RF
therapeutic multivitamin Tablet
1 tab PO DAILY
glipizide 5 mg Tablet
5 mg PO DAILY
Rx Instructions:
on hold as per bcc[facility]
acetaminophen [Tylenol] 325 mg tablet
650 mg PO TIDPRN PRN (Reason: fever or pain)
docusate sodium 100 mg capsule
100 mg PO BIDPRN PRN (Reason: constipation)
nitroglycerin 0.4 mg Tablet, Sublingual
0.4 mg sublingual [id number] PRN (Reason: chest pain) Qty: 20 0RF
pantoprazole 40 mg tablet,delayed release (DR/EC)
40 mg PO DAILY Qty: 30 0RF
Discharge Orders:
Discharge Patient (As Directed); Ordered 02/25/25
Ordered By: Kelechi Candelario
Discharge Date and Time
Print Language: IRISH
--- NOTE | 2025-02-25 13:58 | CM ---
CM following re: discharge planning.
Reviewed pt's chart, guards at bedside.
Discharge order noted. Guards confirmed that pt will return back to [facility].
[facility] nursing report: [phone]
Discharge instructions fax: [phone]
[facility]C [facility] Guards to transport.
[2025-02-25 15:50] VITALS: BP 103/65
[2025-02-25 16:35] LABS: Glucose - Point of Care 172 mg/dl (70-99)
== END 2025-02-25 17:08 ==
LOC: 2 SOUTH 23:06
PROVIDERS: Clinical Nurse Specialist Family Health; Emergency Medicine; Internal Medicine; ADMITTING PHYSICIAN Hospitalist; ATTENDING PHYSICIAN Hospitalist; CONSULT PHYSICIAN Internal Medicine; CONSULT PHYSICIAN Internal Medicine Cardiovascular Disease; EMERGENCY PHYSICIAN Emergency Medicine
DX: R07.9 Chest pain, unspecified (principal); E87.6 Hypokalemia; R16.1 Splenomegaly, not elsewhere classified; I42.0 Dilated cardiomyopathy; E78.00 Pure hypercholesterolemia, unspecified; N18.9 Chronic kidney disease, unspecified; I13.0 Hypertensive heart and chronic kidney disease with heart failure and stage 1 through stage 4 chronic kidney disease, or unspecified chronic kidney disease; I25.10 Atherosclerotic heart disease of native coronary artery without angina pectoris; I48.21 Permanent atrial fibrillation; F41.9 Anxiety disorder, unspecified; I50.42 Chronic combined systolic (congestive) and diastolic (congestive) heart failure; E11.22 Type 2 diabetes mellitus with diabetic chronic kidney disease; K42.9 Umbilical hernia without obstruction or gangrene; G47.33 Obstructive sleep apnea (adult) (pediatric); K76.1 Chronic passive congestion of liver; I49.3 Ventricular premature depolarization; D18.00 Hemangioma unspecified site; N40.0 Benign prostatic hyperplasia without lower urinary tract symptoms; M51.379 Other intervertebral disc degeneration, lumbosacral region without mention of lumbar back pain or lower extremity pain; N32.0 Bladder-neck obstruction; K80.20 Calculus of gallbladder without cholecystitis without obstruction; I25.2 Old myocardial infarction; Z79.82 Long term (current) use of aspirin; Z79.01 Long term (current) use of anticoagulants; Z79.84 Long term (current) use of oral hypoglycemic drugs; Z98.84 Bariatric surgery status; Z95.810 Presence of automatic (implantable) cardiac defibrillator; Z86.73 Personal history of transient ischemic attack (TIA), and cerebral infarction without residual deficits; Z82.49 Family history of ischemic heart disease and other diseases of the circulatory system; Z79.899 Other long term (current) drug therapy
CPT/HCPCS: 71046; 74177; 80053; 82248; 82962; 83735; 83880; 84484; 85025; 85027; 86140; 87070; 93005; 94760; 96374; 96375; 96376; 99285; G0378; Q9967

== ENCOUNTER 2025-03-27 15:00 | Observation (INO) | payer OTHER, SELFPAY ==
[2025-03-27] VITALS (12 sets, daily range): BP systolic 76–147; BP diastolic 46–86; PULSE 71–72; BMI 27.2; BMI 27.8
--- NOTE | 2025-03-27 09:10 | ED.GENMED ---
History of Present Illness
General
Chief Complaint: Fall
Source: patient
Exam Limitations: none
Time Seen by Provider: 03/27/25 08:58
Nursing documentation reviewed up to this point in time: agreed with
History of Present Illness
History of Present Illness:
59-year-old male with history of hypertension, hyperlipidemia, CAD, atrial fibrillation on Xarelto, [employer] pacemaker/ICD who presents from [facility] with multiple complaints after a fall. Patient reports that
today he got up out of his bed in his cell and he felt dizzy with 'black spots in my vision' and he fell down. He says he hit the left side of his head on the wall and fell to the ground. He is unsure whether he actually passed out. He complains
of pain in the head and neck, left chest wall pain, left upper abdominal pain, mid back pain. He denies any injuries to his arms or his legs. He denies any nausea or vomiting. He does note that he had a similar fall few days ago and that is when
he initially injured his left ribs but chest pain worse today. Of note patient was admitted to this hospital in January as well as last month in February for chest pain of unclear etiology--he had cardiac cath in January which showed no
obstructive disease, seen by cardiology and GI in February pain was potentially attributed to pericarditis and treated with colchicine.
Past History
Past History
ED Past Medical History: Arrthythmia, HTN, Hypercholesterolemia and NE
ED Past Surgical History: Cardiac (defibrillator) and Other (gastric bypass)
Social History
Tobacco: Non-smoker
Alcohol: None
Drug: None
Living: penitentiary
Review of Systems
Review of Systems
All Other Systems: ROS reviewed and negative except as documented in HPI and ROS
Constitutional: Denies fever
Respiratory: Denies trouble breathing
Cardiac: Reports chest pain
ABD/GI: Reports abdominal pain; Denies nausea or vomiting
: Denies flank pain
Musculoskeletal: Reports neck pain and back pain; Denies joint pain
Neurological: Reports dizzy and headache; Denies weakness or numbness
Phy Exam
Physical Exam
Physical Exam:
General: Awake, alert, oriented x3; appears uncomfortable
Head: Normocephalic, atraumatic
Eyes: Conjunctiva normal, EOMI, pupils equal round and reactive to light bilaterally
Throat: Airway intact, handling secretions, tongue atraumatic
Neck: Trachea midline, no midline cervical spine tenderness but patient does have some paraspinal tenderness in the cervical spine
Lungs: Clear to auscultation bilaterally, no wheezing, rales, rhonchi
Heart: Regular rate and rhythm, no murmurs, gallops, or rubs; patient has tenderness in the left anterior ribs but no bruising or crepitus noted
Abd: Soft, non distended, mild tenderness in the left upper quadrant
Back: No signs of trauma to the back or flank but he does have some tenderness in the paraspinal musculature in the mid thoracic region; no midline thoracic or lumbar tenderness and no spinal step-offs appreciated
Neuro: Cranial nerves grossly intact, speech fluid, motor and sensory grossly intact
Skin: Warm and dry with no bruising, abrasions, lacerations or other signs of acute trauma
Extremities: Atraumatic, no edema in extremities, equal pulses in all extremities
Scores
Heart Failure Risk
Heart Failure Risk Score: Not Applicable
Heart Score for Chest Pain Patients
STEMI patient?: Not applicable
Withdrawal Assessment of Alcohol
Withdrawal Assessment Completed?: Not applicable
Course
Orders/Labs/Results
Orders:
Orders
03/27/25 08:59
Interrogate Pacemaker- Treatment ONCE
03/27/25 09:00
Electrocardiogram (*1) Urgent
Reason for Study: QTc Monitoring
EKG- Treatment ONCE
03/27/25 09:08
CT Cervical Spine W/o Iv Contr Urgent
Comment:
Reason For Exam: neck pain s/p fall
CT Chest/abd/pel W Iv Cont Urgent
Comment:
Reason For Exam: left rib pain, LUQ pain, mid back pain s/p fall
CT Head W/o Iv Contrast Urgent
Comment:
Reason For Exam: syncope and fall on blood thinner
03/27/25 09:14
Complete Blood Count/With Diff Urgent
Comprehensive Metabolic Panel Urgent
Troponin I Urgent
03/27/25 09:16
Acetaminophen [Tylenol] 1,000 mg PO NOW STA
03/27/25 09:39
HYDROmorphone [Dilaudid] 0.5 mg IV NOW STA
03/27/25 09:58
0.9% Sodium Chloride 500 ml [Nss] 500 ml IV BOLUS
03/27/25 12:15
Troponin I Urgent
Abnormal Lab Results
03/27/25
09:14
MCH 31.4 H pg
(27.0-31.0)
Sodium 132 L mmol/L
(135-145)
Chloride 95 L mmol/L
(98-107)
BUN 21 H mg/dl
(9-20)
Creatinine 1.5 H mg/dL
(0.7-1.3)
Glucose 164 H mg/dl
(70-99)
Total Bilirubin 2.8 H mg/dl
(0.2-1.3)
ALT 51 H U/L
(0-50)
Troponin I 0.054 H* ng/ml
03/27/25 09:14
03/27/25 09:14
Vital Signs
Initial and Last Documented VS:
Initial Vital Signs
Pulse Resp Pulse Ox
70 23 100
03/27/25 09:02 03/27/25 09:02 03/27/25 09:02
Last Documented Vital Signs
Temp Pulse Resp BP Pulse Ox
36.6 C 70 24 94/68 100
03/27/25 09:46 03/27/25 11:01 03/27/25 10:00 03/27/25 11:01 03/27/25 09:30
MDM/Problems Addressed
Differential Diagnosis Includes:
Syncope: Orthostatic hypotension, vasovagal syncope, dysrhythmia, ACS considered unlikely clinically based on history as well as recent reassuring cardiac cath
Rib/chest pain: Rib fracture, bruised ribs, pneumothorax, hemothorax, pericarditis, ACS
Abdominal pain: Rib fracture, splenic injury, contusion, muscular strain
Back pain: Vertebral fracture, hematoma, muscular strain, splenic injury
MDM/Problems Addressed:
59-year-old male with history as noted presents to the ER from [facility] for evaluation after episode of dizziness and collapse�unclear if he passed out. He says he hit his head and injured his ribs. Complains of headache, neck
pain, rib pain, abdominal pain, back pain. No injuries to his extremities. He is on Xarelto for history of A-fib. He has a [employer] AICD. Vitals and exam are as above. Will plan to place an IV check labs including a CBC and a CMP,
troponin. Will check CT of the head, cervical spine, chest/abdomen/pelvis. Check EKG and interrogate device. Tylenol for pain. Reassess after the above.
Labs reviewed: CBC unremarkable, CMP shows ADIS with a creatinine of 1.5 from prior baseline of 0.8. His troponin is slightly elevated will need to trend. Imaging reviewed CT head and cervical spine showed no acute posttraumatic abnormalities. CT
chest/abdomen/pelvis also showed no acute posttraumatic findings. He has had chronic chest pains with multiple admissions recently but today with syncope and elevated troponin we will plan to admit for continued fluids, trend creatinine, trend
troponin. Suspect there is a component of muscular pain/bruised ribs after his fall. Case discussed with hospitalist for admission.
Chronic conditions affecting care:
A-fib on Xarelto complicates fall
*Radiology
Radiology exam reviewed: radiology read reviewed
*Pulse Oximetry
SaO2: 100
Oxygen Mode of Delivery: Room air
Patient hypoxic: no (100%)
*EKG
Interpreted by ED Provider?: Yes
Heart Rate: 70
Rhythm: ventricular paced
*Critical Care Note
Total Time (30-74mins, 75-104mins- exclusive of procedures): Not Applicable
Data Reviewed
Review of Other/Old Records Reveals: Labs, Records and Testing
Source: patient and records
Patient Management
Discussion with other providers: Hospitalist (Discussed with hospitalist)
Escalation/DeEscalation of care consider admission/obs:
Admission indicated
ED Attending Note
-
Portions of this chart may have been created with voice recognition software.� Occasional wrong word or��sound alike� substitutions may have occurred due to the inherent limitations of voice recognition software.
Discharge Plan
Departure
Patient Disposition: Admit
Date of Disposition: 03/27/25
Time of Disposition: :25
Admit to doctor: Won
Presentation/result/management discussed w/ accepting MD/DO: Hospitalist
Discharge Problem:
Chest pain, Syncope, Bruised ribs
Prescriptions:
No Action
atorvastatin [Lipitor] 40 mg Tablet
40 mg PO DAILY
carvedilol [Coreg] 12.5 mg Tablet
12.5 mg PO Q12H
bumetanide 2 mg Tablet
2 mg PO DAILY
aspirin 81 mg Tablet,Delayed Release (Dr/Ec)
81 mg PO DAILY
Xarelto 20 mg Tablet
20 mg PO QPM
Jardiance 10 mg Tablet
10 mg PO DAILY
therapeutic multivitamin Tablet
1 tab PO DAILY
docusate sodium 100 mg capsule
100 mg PO BIDPRN PRN (Reason: constipation)
nitroglycerin 0.4 mg Tablet, Sublingual
0.4 mg sublingual [id number] PRN (Reason: chest pain) Qty: 20 0RF
colchicine 0.6 mg Tablet
0.6 mg PO DAILY Qty: 10 0RF
potassium chloride [Klor-Con 10] 10 mEq Tablet Extended Release
10 meq PO DAILY
acetaminophen-codeine 300-30 mg Tablet
1 tab PO DIRECTED
Rx Instructions:
TAKING 1 BID FOR 2 DAYS ON 03/26/25-03/27/25 THEN 1 TABLET QHS FOR 2 DAYS ON 03/28/25-03/28/25
sulfamethoxazole-trimethoprim [Bactrim DS] 800-160 mg Tablet
1 tab PO BID
Rx Instructions:
TAKE UNTIL 04/04/25
acetaminophen [Tylenol Extra Strength] 500 mg Tablet
1,000 mg PO TIDPRN PRN (Reason: MILD PAIN)
buspirone [BuSpar] 10 mg Tablet
10 mg PO DAILY
baclofen 5 mg Tablet
5 mg PO TIDPRN PRN (Reason: MUSCLE SPAMS)
Mounjaro 5 mg/0.5 mL Pen Injector
5 mg SC QWEEK
pantoprazole 40 mg tablet,delayed release (DR/EC)
40 mg PO DAILY
escitalopram oxalate 10 mg tablet
10 mg PO HS
Referrals:
NONE,* [Family Provider, Internal Medicine]
Interventions
Interventions:
*Risk Screen - Suicide Last Done: 03/27/25 11:05
*Neglect/Abuse Screening Last Done: 03/27/25 11:05
*ED- Fall Risk Assessment Last Done: 03/27/25 11:05
*ED COVID-19 Vaccine History Last Done: 03/27/25 11:05
*ED Influenza Vaccine History Last Done: 03/27/25 11:05
ED-Musculoskeletal Assessment Last Done: 03/27/25 10:12
ED- Neurological Assessment Last Done: 03/27/25 10:12
ED-Skin Assessment Last Done: 03/27/25 10:12
Discharge Date and Time
Print Language: [place]
[2025-03-27 09:25] LABS: Hematocrit 43.2 % (39.0-52.0); Hemoglobin 15.9 g/dL (13.0-18.0); Mean Corp Hgb Conc. 36.8 g/dL (33.0-37.0); Mean Corpuscular Volume 85.2 fL (80.0-94.0); Nucleated Red Blood Cells % 0 % (-); Platelet Count 232 10^3/uL (130-400); Red Cell Dist. Width 12.5 % (11.5-14.5)
[2025-03-27] MEDS: TYLENOL 1000 MG PO (09:25)
[2025-03-27] MEDS: DILAUDID 0.5 MG IV (09:42)
[2025-03-27 09:52] LABS: AST (SGOT) 54 U/L (17-59); Albumin 4.8 g/dl (3.5-5.0); Alkaline Phosphatase 123 U/L (38-126); Blood Urea Nitrogen 21 mg/dl (9-20); Calcium 10.1 mg/dl (8.4-10.2); Carbon Dioxide 23 mmol/L (22-30); Chloride 95 mmol/L (98-107); Estimated Creatinine Clearance 58 ml/min; Glucose 164 mg/dl (70-99); Potassium 3.7 mmol/L (3.5-5.1); Sodium 132 mmol/L (135-145); Total Protein 7.5 g/dl (6.3-8.2); eGFR 53.96
[2025-03-27 10:02] LABS: ALT (SGPT) 51 U/L (0-50)
[2025-03-27 10:08] LABS: Troponin I 0.054 ng/ml
[2025-03-27] MEDS: NSS 500 IV ×2 (11:04→11:30)
[2025-03-27 13:48] LABS: Troponin I 0.053 ng/ml
--- NOTE | 2025-03-27 14:40 | CON.CAR ---
Addendum entered and electronically signed by Bhupinder Swift MD 03/27/25 17:16:
I saw and examined the patient.
The Commodity Broker's note was reviewed and I agree with the note.
Comment: Briefly, 59-year-old man past medical history of nonischemic cardiomyopathy status post COIL TAPER-D who presents with chest discomfort and cardiology is consulted for further evaluation
Patient has multiple admissions for similar symptoms over the last several months
Underwent invasive coronary angiography 01/2025 which showed nonobstructive coronary disease
ECG here is ventricularly paced however does not appear acutely ischemic
Troponin was borderline elevated 0.054 and down trended to 0.053. No need to repeat troponin at this time.
Transthoracic echocardiogram with mildly reduced left ventricular systolic function with estimated EF 40-45% with no significant SWMA. There is significant improvement in LV function since his prior admission when EF was severely reduced at 20-25%.
Will arrange for device interrogation to assess for arrhythmia as a cause of his symptoms and check battery life
Cr is elevated. Possibly related to Bactrim. Will need to revisit SGLT2 and loop diuretic dosing if his Cr remains elevated on morning labs.
Original Note:
Consultation
Consultation Request
Date/Time Consultation Requested: 03/27/2025
Date/Time Consultation Performed: 03/27/2025
Requesting Provider: Dr. Pham
Performing Provider: Dr. Swift
Reason for Consultation: Chest pain, elevated troponin
Medical History
-
History of Present Illness:
Patient presents to the ER today with complaints of chest pain and loss of consciousness and cardiology has been consulted. This is the patient's 4th evaluation for chest pain in the ER at [facility] january also patient had a visit to [facility] that
lasted 3 to 4 days for symptoms of syncope and trauma, he says this was last week. Patient had cardiac catheterization 01/17/2025 that showed nonobstructive CAD. Despite unremarkable cardiac catheterization the patient has continued to have chest
pain with intermittent elevation of his troponin levels. Patient was previously treated for NICM with EF as low as 18% in the past, but closer to 20 to 25% by echo 01/11/2025. Patient is on GDMT with Coreg and Jardiance. Patient has a [employer] COIL TAPER�D in place and has been approaching SAL, at last device check on 02/25/2025 he had 3 months of battery longevity and patient was scheduled to see his primary lace weaver to discuss generator change on 03/15/2025, the patient
tells me this appointment never happened and no recent generator change. Patient has not heard any beeping from his device. Additionally the patient has recurrent near syncope and syncope that is not associated with arrhythmia according to device
interrogations. Patient noted to be hypotensive at times and other times is normotensive to hypertensive. Patient was treated for possible pericarditis following his last admission, patient does not recall feeling any better with colchicine
treatment.
PMH:
Recent admission to [facility] for syncope and trauma, was admitted for at least 3 days 03/2025
Recent admission for chest pain 02/22/2025 until 02/25/2025
Recent admission for chest pain 01/16/2025 until 01/20/2025
Recent admission for chest pain 01/10/2025 until 01/15/2025
Nonischemic cardiomyopathy, EF as low as 18% in past, 36% by echo 06/2023, 20 to 25% by echo 01/11/2025 and now improved to 40 to 45% by echo 03/27/2025
Nonobstructive CAD by cardiac cath 01/10/25
[employer] COIL TAPER�D
3 months battery longevity at last check 02/25/2025
Chronic heart failure with reduced EF
Permanent atrial fibrillation
Chronic Xarelto therapy
Diabetes
History of CVA
History of bariatric surgery in 2021
GLENIS
Past Medical History
Past Surgical History: Cardiac ([employer] ICD [employer])
Social History
Tobacco: Non-Smoker
Alcohol: None
Drug: None
Living: Long Term
Family History
Family History: CAD and Hypertension
Allergies / Home Medications
Allergy/AdvReac Type Severity Reaction Status Date / Time
No Known Allergies Allergy Verified 01/16/25 15:09
�Medication �Instructions �Recorded �Confirmed �Type
aspirin 81 mg tablet,delayed 81 mg PO DAILY Blood Clot 01/10/25 03/27/25 History
release Prevention/Tx
atorvastatin 40 mg tablet (Lipitor) 40 mg PO DAILY High Cholesterol 01/10/25 03/27/25 History
bumetanide 2 mg tablet 2 mg PO DAILY Fluid 01/10/25 03/27/25 History
Retention/Swelling
carvedilol 12.5 mg tablet (Coreg) 12.5 mg PO Q12H Heart 01/10/25 03/27/25 History
Disease/Condition
empagliflozin 10 mg tablet 10 mg PO DAILY Diabetes 01/10/25 03/27/25 History
(Jardiance)
rivaroxaban 20 mg tablet (Xarelto) 20 mg PO QPM Blood Clot 01/10/25 03/27/25 History
Prevention/Tx
docusate sodium 100 mg capsule 100 mg PO BIDPRN PRN constipation 01/16/25 03/27/25 History
therapeutic multivitamin 1 tab PO DAILY Supplement 01/16/25 03/27/25 History
nitroglycerin 0.4 mg sublingual 0.4 mg sublingual [id number] PRN 01/20/25 03/27/25 Rx
tablet chest pain #20 tabs
colchicine 0.6 mg tablet 0.6 mg PO DAILY #10 tabs 02/25/25 03/27/25 Rx
acetaminophen 300 mg-codeine 30 mg 1 tab PO DIRECTED 03/27/25 03/27/25 History
tablet
acetaminophen 500 mg tablet 1,000 mg PO TIDPRN PRN MILD PAIN 03/27/25 03/27/25 History
(Tylenol Extra Strength)
baclofen 5 mg tablet 5 mg PO TIDPRN PRN MUSCLE SPAMS 03/27/25 03/27/25 History
buspirone 10 mg tablet 10 mg PO DAILY Mental 03/27/25 03/27/25 History
Health/Anxiety
escitalopram oxalate 10 mg tablet 10 mg PO HS Mental Health/Anxiety 03/27/25 03/27/25 History
pantoprazole 40 mg tablet,delayed 40 mg PO DAILY Gastrointestinal 03/27/25 03/27/25 History
release Issue
potassium chloride 10 mEq 10 meq PO DAILY Electrolyte 03/27/25 03/27/25 History
tablet,extended release (Klor-Con) Repletion
sulfamethoxazole 800 1 tab PO BID Infection 03/27/25 03/27/25 History
mg-trimethoprim 160 mg tablet
(Bactrim DS)
tirzepatide 5 mg/0.5 mL 5 mg SC QWEEK Weight Gain 03/27/25 03/27/25 History
subcutaneous pen injector
(Mounjaro)
Review of Systems
-
History Source: Patient
All other systems: Negative unless noted
Physical Exam
Vital Signs
Temp Pulse Resp BP Pulse Ox
97.9 F 70 12 107/61 94
03/27/25 14:35 03/27/25 14:00 03/27/25 14:00 03/27/25 14:00 03/27/25 13:00
GEN: NAD, AAO x 3
HEENT: EOMI, MMM
LUNGS: RA. CTA B/L, no wheeze
CV: V paced and appears to be underlying A-fib. Reg, S1/S2, no murmur, rub or gallop
ABD: ND
EXT: No edema B/L LE
NEURO: Gross non-focal
SKIN: No rash, warm, dry, pink
Lab Results
03/27/25 09:14
03/27/25 09:14
Troponin I 0.053 ng/ml H* 03/27/25 13:08
Impression / Plan
-
Primary Cardiology provider: Sailaja RIV[facility]
Assessment:
Presented to the ER with chest pain and syncope 03/27/2025
Recent admission to [facility] for syncope and trauma, was admitted for at least 3 days 03/2025
Recent admission for chest pain 02/22/2025 until 02/25/2025
Recent admission for chest pain 01/16/2025 until 01/20/2025
Recent admission for chest pain 01/10/2025 until 01/15/2025
ADIS
Syncope with loss of consciousness and fall
Chest pain
Elevated troponin
Nonischemic cardiomyopathy, EF as low as 18% in past, 36% by echo 06/2023, 20 to 25% by echo 01/11/2025 and now improved to 40 to 45% by echo 03/27/2025
Nonobstructive CAD by cardiac cath 01/10/25
[employer] COIL TAPER�D
3 months battery longevity at last check 02/25/2025
Chronic heart failure with reduced EF
Permanent atrial fibrillation
Chronic Xarelto therapy
Diabetes
History of CVA
History of bariatric surgery in 2021
GLENIS
ECHO 06/2023 OSH: EF 36%
Echo 01/11/2025: EF 20 to 25% with severe global hypokinesis with inferoseptal wall appearing to be hypokinetic. Mildly dilated left ventricle. Mild concentric LVH. No left atrial appendage thrombus. Grade 3 DD. Moderately dilated left atrium.
No significant valve disease
Echo 03/27/2025: EF 40 to 45%, mild concentric LVH, normal RV size and function, aortic sclerosis without stenosis, compared to echo from 01/11/2025 the EF has improved
Cardiac cath 01/17/2025 with no obstructive coronary artery disease
Plan:
-Patient presents to the ER today with complaints of chest pain and loss of consciousness and cardiology has been consulted. This is the patient's 4th evaluation for chest pain in the ER at [facility] send January also patient had a visit to [facility] that
lasted 3 to 4 days for symptoms of syncope and trauma, he says this was last week. Patient had cardiac catheterization 01/17/2025 that showed nonobstructive CAD. Despite unremarkable cardiac catheterization the patient has continued to have chest
pain with intermittent elevation of his troponin levels. Patient was previously treated for NICM with EF as low as 18% in the past, but closer to 20 to 25% by echo 01/11/2025. Patient is on GDMT with Coreg and Jardiance. Patient has a [employer] COIL TAPER�D in place and has been approaching SAL, at last device check on 02/25/2025 he had 3 months of battery longevity and patient was scheduled to see his primary lace weaver to discuss generator change on 03/15/2025, the patient
tells me this appointment never happened and no recent generator change. Patient has not heard any beeping from his device. Additionally the patient has recurrent near syncope and syncope that is not associated with arrhythmia according to device
interrogations. Patient noted to be hypotensive at times and other times is normotensive to hypertensive. Patient was treated for possible pericarditis following his last admission, patient does not recall feeling any better with colchicine
treatment.
-ECG reviewed by me is V-paced with underlying A-fib
-Patient has recurrent chest pain with nonobstructive CAD on cardiac cath 01/17/2025. Troponin is elevated and this could be due to chest trauma as patient reports passing out and hitting his chest onto a bench in his cell. Doubt this is ACS.
Patient was previously nonresponsive to attempts at pericarditis treatment with colchicine. Noncardiac causes of chest pain should be considered.
-Patient has known NICM and EF previously as low as 18% but now appears to be improved to 40 to 45% by echo 03/27/2025
-Outpatient doses of Coreg and Jardiance should be continued.
-Patient is not chronically on JUAN/ARB/ARNI/aldosterone antagonist due to lightheadedness and dizziness when these medications were attempted in the past.
-Patient has recurrent near syncope and syncope. Check orthostatic vital signs, ordered by me
-Patient has ADIS with Cre up to 1.5 in the ER today. Recommend gentle hydration. Outpatient dose of Bumex 2 mg daily should be held for today and recheck labs in the a.m.
-Patient has known permanent A-fib. His usual dose of Xarelto 20 mg daily should be continued, CrCl is 58
[2025-03-27 15:39] LABS: C-Reactive Protein < 5.00 mg/L (0.0-10.00)
--- NOTE | 2025-03-27 16:28 | HPS.HSE ---
Addendum entered and electronically signed by Hussein Pham MD 03/27/25 21:41:
Attending Addendum-
I performed a history and physical exam of the patient and discussed his management with the resident. I reviewed the resident's note and agree with the documented findings and plan of care CC/HPI- Patient rpesent from [facility] secondary to reported
syncopal events with fall, left sided reproducible chest pain, and vision changes. Patient has multiple complaints. CP is improved with pain meds. Has had multiple admissions for the same. 'i just wanna figure out whats going on' No NV abd pain
fevers chills urinary complaints. Full 12 point ROS reviewed and negative except as documented Exam- vitals reviewed in EMR GEN-NAD heart RRR no MRG lungs CTA B/L abd soft TTP LUQ no rebound guarding LE no edema Neruo AAO x 3 MS 5/ sensation intact
Plan:
# Atypical Chest Pain/NIMI
- trend trops
- interrogate RESEARCH ASSISTANT PROFESSOR-D
- repeat ECHO
- cardiac cath on 01/17- non obs CAD
- c/s cards
- EKG reviewed and non ischemic
# Syncope
- high risk for cardiogenic
- c/s cards check orthostatic vitals check ECHO CTM
# Vision Changes
- check MRI/MRA,CD
# ADIS
- unclear why on bactrim but could be cause
- give fluid in ED
- repeat BMP in am
# Hyponatremia
- appears euvolemic
- repeat BMP in am given IVF in ED
# HFrEF, nonischemic cardiomyopathy
- not in AE, RESEARCH ASSISTANT PROFESSOR-D in place
- repeat ECHO
- previous echo 01/11- EF 20-25%
- hold diuretic for today, restart in am add MRA if able
- cont SGLTi
# Permanent A fib
- cont coreg and xarelto
# DM
- recent HBa1c- 6.7
- verify meds, recently taken off glipizide
- cont mounjaro
- cont SSI
# Depression- cont lexapro
# H/O CVA repeat MRI MRA for eval cont asa atorva
DVTp-xarelto
CODE FULL
[facility]
Patient consented to discuss, was alone, time spent explanation of advance directives, changes in health status, patient�s health care wishes if the patient becomes unable to make health decisions, goals of care, code status, and prognosis- 16
minutes
Time spent coordinating care, review of plan of care with resident, personally reviewed previous records in EMR, med rec, labs, radiology, d/w nursing, family total time documented is exclusive of any additional time listed that was spent in advance
care planning discussion -�75 minutes
Original Note:
Family Physician
-
Family Physician: Ganga Gotti MD
Chief Complaint
-
Syncope, left-sided chest pain,
History of Present Illness
Patient is a 59-year-old male with past medical history of HFrEF (Echo 01/11/25 EF:20 to 25%), hypertension, hyperlipidemia, CAD, permanent atrial fibrillation on Xarelto, pacemaker/ICD, history of 2 strokes, who is presenting with chest pain after
syncopal event this morning. Patient has had 4 recent admissions for chest pain in the last 3 months, as well as an admission to [facility] for syncope and trauma requiring an admission of 3 days earlier this month. During January admission
patient had full cardiac workup including a cardiac cath showing no obstructive coronary artery disease, stress test which showed no ischemia, and an echo which showed ejection fraction of 20-25%. The following admissions were for similar chest
pain of unknown etiology. It was suspected that patient had pericarditis and patient was discharged on colchicine.
This morning when patient woke up he experienced the same sharp, stabbing chest pain left side of his chest as well as black dots in his vision, before he lost consciousness. Patient fell and hit the left side of his head on the wall and the left
side of his chest and abdomen on the ground. Patient did not lose bowel or bladder function. Patient did not bite his tongue. Patient was brought to [facility] from [facility] immediately after a syncopal event.
In the ED, the following was completed: CBC was found to be unremarkable, CMP indicated an ADIS, creatinine 1.5 from his baseline of 0.8. Troponins were slightly elevated at 0.054. CT head, CT cervical spine showed no acute posttraumatic findings.
CT CAP showed no acute posttraumatic findings as well. EKG showed a ventricular paced rhythm, no change from last EKG. Blood pressure were in the 90s over 60s, HR 70 RR 24.
Cardiology consult placed. Will admit this patient for further work up of syncopal event.
Medical History
Past Medical History
Past Medical History: Reports Arrhythmia (Permanent atrial fibrillation), CAD, CHF (Reduced ejection fraction (echo 01/11/2025 20-25%)), Hypercholesterolemia and Psychiatric (Anxiety)
Additional Past Medical History:
Chronic bladder obstruction
Past Surgical History: Reports Other
Additional Past Surgical History:
Bariatric gastric sleeve surgery 3 years ago. Umbilical hernia repair 20 years ago
Social History
Tobacco: Non-smoker
Alcohol: None
Drug: None
Living: Retirement
Family History
Family History: Other (Both brothers with heart failure.)
Allergies / Home Medications
Allergies reflects when Allergies were last updated in [employer].
Home Medications with original date entered in [employer]
Allergy/Medication List:
Allergies
Allergy/AdvReac Type Severity Reaction Status Date / Time
No Known Allergies Allergy Verified 01/16/25 15:09
Home Medications
aspirin 81 mg tablet,delayed release 81 mg PO DAILY Blood Clot Prevention/Tx 01/10/25
atorvastatin 40 mg tablet (Lipitor) 40 mg PO DAILY High Cholesterol 01/10/25
bumetanide 2 mg tablet 2 mg PO DAILY Fluid Retention/Swelling 01/10/25
carvedilol 12.5 mg tablet (Coreg) 12.5 mg PO Q12H Heart Disease/Condition 01/10/25
empagliflozin 10 mg tablet (Jardiance) 10 mg PO DAILY Diabetes 01/10/25
rivaroxaban 20 mg tablet (Xarelto) 20 mg PO QPM Blood Clot Prevention/Tx 01/10/25
docusate sodium 100 mg capsule 100 mg PO BIDPRN PRN constipation 01/16/25
therapeutic multivitamin 1 tab PO DAILY Supplement 01/16/25
nitroglycerin 0.4 mg sublingual tablet 0.4 mg sublingual [id number] PRN chest pain #20 tabs 01/20/25
colchicine 0.6 mg tablet 0.6 mg PO DAILY #10 tabs 02/25/25
acetaminophen 300 mg-codeine 30 mg tablet 1 tab PO DIRECTED 03/27/25
acetaminophen 500 mg tablet (Tylenol Extra Strength) 1,000 mg PO TIDPRN PRN MILD PAIN 03/27/25
baclofen 5 mg tablet 5 mg PO TIDPRN PRN MUSCLE SPAMS 03/27/25
buspirone 10 mg tablet 10 mg PO DAILY Mental Health/Anxiety 03/27/25
escitalopram oxalate 10 mg tablet 10 mg PO HS Mental Health/Anxiety 03/27/25
pantoprazole 40 mg tablet,delayed release 40 mg PO DAILY Gastrointestinal Issue 03/27/25
potassium chloride 10 mEq tablet,extended release (Klor-Con) 10 meq PO DAILY Electrolyte Repletion 03/27/25
sulfamethoxazole 800 mg-trimethoprim 160 mg tablet (Bactrim DS) 1 tab PO BID Infection 03/27/25
tirzepatide 5 mg/0.5 mL subcutaneous pen injector (Mounjaro) 5 mg SC QWEEK Weight Gain 03/27/25
Review of Systems
-
History Source: Patient
Constitutional: Reports No Symptoms
EENT: Reports Other (Dry mouth, left-sided headache)
Respiratory: Reports Other (Shortness of breath when experiencing chest pain)
Cardiac: Reports Chest Pain (Sharp, stabbing, left-sided, comes and goes)
Abdomen/GI: Reports Constipated (Reports not having bowel movement in 2 weeks.)
: Reports Difficulty Voiding (Patient with chronic bladder obstruction)
Musculoskeletal: Reports Other (Left-sided thoracic musculoskeletal pain)
Skin: Reports No Symptoms
Neurological: Reports Other (Changes in vision including black spots/floaters -description seems like double vision although patient explicitly denies diplopia)
Endocrine: Reports No Symptoms
Hematologic/Lymphatic: Reports No Symptoms
Psych: Reports Anxiety
Physical Exam
Vital Signs
Vital Signs
Temp Pulse Resp BP Pulse Ox
97.5 F 71 18 112/59 97
03/27/25 16:05 03/27/25 16:05 03/27/25 16:05 03/27/25 16:05 03/27/25 16:05
Physical Exam
General: Well Developed, Well Nourished, No Apparent Distress and Comfortable
Respiratory: Clear
Cardiac: Regular Rhythm
GI: Soft, Non Tender, Non Distended and Normal Bowel Sounds
Musculoskeletal: No Edema
Skin: Warm and Dry
Neuro: Awake, Alert and Oriented
Psych: Calm
Laboratory Results
-
03/27/25 09:14
03/27/25 09:14
Laboratory Results
Total Bilirubin 2.8 mg/dl (0.2-1.3) H 03/27/25 09:14
AST 54 U/L (17-59) 03/27/25 09:14
ALT 51 U/L (0-50) H 03/27/25 09:14
Alkaline Phosphatase 123 U/L (38-126) 03/27/25 09:14
Troponin I 0.053 ng/ml H* 03/27/25 13:08
Impression/Plan
-
Impression and Plan:
#Syncope
- Patient with recurrent syncopal events in setting of heart failure, atrial fibrillation, history of stroke
- Cardiology consulted
- Placed order for carotid ultrasound b/l
- Pending cardiology guidance on pacemaker compatibility tomorrow, will place order for MRI brain without contrast as well as MRA brain
#ADIS
- Creatinine 1.5 today, baseline 0.8 on last admission
- mixed etiology- pre-renal vs. antibiotic side effects vs. post renal obstructive
- Per cardiology recommendations, holding diuretics
- Patient received 1 L normal saline in ED
#Permanent atrial fibrillation on anticoagulation
- Continue Xarelto 20 mg daily
- Continue carvedilol 12.5 mg every 12 hours for rate control
#HFrEF, now HFimpEF
- Repeat echo completed today showing left ventricular systolic function mildly reduced with LVEF of 40-45%. This is much improved from recent echo in January 2025.
GDMT:
- Continue carvedilol 12.5 mg every 12 hours
- Continue Jardiance 10 mg daily
- JUAN/ARB/ARNI -patient has not tolerated in the past due to dizziness
- Holding bumetanide per cardiology recommendations
#History of stroke
#CAD
#Hyperlipidemia
-Continue aspirin 81 mg
-Continue atorvastatin 40 mg
#Hypertension
- Continue carvedilol 12.5 mg every 12 hours
#Chronic bladder obstruction
- Patient with history of difficulty with urination
- Monitor urine output through I's and O's
- Possible bladder scan if unable to urinate while admitted
--- NOTE | 2025-03-27 17:14 | PTCARENOTE ---
Patient arrived from ED escorted by two correctional officers. AAO x 3. Patient positive for orthostatic hypotension as evidenced by drop >20 mm HG in SBP. V paced on telemetry. Patient also complaining of dizziness upon standing. Skin check
completed--patient with a left posterior scalp scar from prior fall. Per patient, his last BM was 2 weeks ago; per patient, he has gone a full month without having a bowel movement since his gastric bypass surgery. Abdomen is soft and nontender with
active bowel sounds. All patient needs met. Bed in lowest position. Call ibrahim and personal belongings given to guards, in the room.
[2025-03-27] MEDS: XARELTO 20 MG PO (17:48)
[2025-03-27] MEDS: COLACE 100 MG PO (20:01)
[2025-03-27] MEDS: BACTRIM DS 800 MG/160 MG 1 TABLET PO (20:01)
[2025-03-27] MEDS: SENOKOT-S 1 TABLET PO (20:01)
[2025-03-27] MEDS: TYLENOL #3 1 TABLET PO (22:06)
[2025-03-27] MEDS: LEXAPRO 10 MG PO (22:06)
[2025-03-27] MEDS: NITROSTAT (SUBLINGUAL) 0.4 MG SL (22:44)
[2025-03-27] MEDS: MAALOX 30 ML PO (23:19)
[2025-03-28 03:30] VITALS: BP 107/64
[2025-03-28 06:00] VITALS: BMI 27.2
[2025-03-28 07:28] VITALS: BP 127/66
[2025-03-28 08:13] LABS: Hematocrit 38.7 % (39.0-52.0); Hemoglobin 14.3 g/dL (13.0-18.0); Mean Corp Hgb Conc. 37.0 g/dL (33.0-37.0); Mean Corpuscular Volume 85.6 fL (80.0-94.0); Platelet Count 175 10^3/uL (130-400); Red Cell Dist. Width 12.6 % (11.5-14.5)
[2025-03-28 08:17] LABS: ALT (SGPT) 39 U/L (0-50); AST (SGOT) 35 U/L (17-59); Albumin 3.9 g/dl (3.5-5.0); Alkaline Phosphatase 90 U/L (38-126); Blood Urea Nitrogen 23 mg/dl (9-20); Calcium 9.2 mg/dl (8.4-10.2); Carbon Dioxide 28 mmol/L (22-30); Chloride 98 mmol/L (98-107); Estimated Creatinine Clearance 62 ml/min; Glucose 94 mg/dl (70-99); Magnesium 2.2 mg/dl (1.6-2.3); Potassium 3.6 mmol/L (3.5-5.1); Sodium 133 mmol/L (135-145); Total Protein 6.2 g/dl (6.3-8.2); eGFR 58.62
[2025-03-28] MEDS: COREG 12.5 MG PO (08:25)
[2025-03-28] MEDS: LIPITOR 40 MG PO (08:25)
[2025-03-28] MEDS: ASPIR LOW (ENTERIC COATED) 81 MG PO (08:25)
[2025-03-28] MEDS: BACTRIM DS 800 MG/160 MG 1 TABLET PO ×2 (08:25→20:28)
[2025-03-28] MEDS: KCL 10 MEQ PO (08:25)
[2025-03-28] MEDS: BUSPAR 10 MG PO (08:25)
[2025-03-28] MEDS: PROTONIX 40 MG PO (08:25)
[2025-03-28] MEDS: FARXIGA 10 MG PO (08:25)
[2025-03-28] MEDS: DILAUDID 0.25 MG IV (08:26)
[2025-03-28 11:31] VITALS: BP 104/62
--- NOTE | 2025-03-28 12:16 | CM ---
CM reviewed chart, care ongoing.
Patient is a 59-year-old male with past medical history of HFrEF (Echo 01/11/25 EF:20 to 25%), hypertension, hyperlipidemia, CAD, permanent atrial fibrillation on Xarelto, pacemaker/ICD, history of 2 strokes, who is presenting with chest pain after
syncopal event this morning.
Patient inmate at [facility], guards bedside.
Plan remains return to [facility] when stable.
D/C plan: return back to [facility]. Guards to transport.
[facility] nursing report: [phone]
Discharge instructions fax: [phone]
--- NOTE | 2025-03-28 14:15 | W.PN.CARDCBS ---
Addendum entered and electronically signed by Malia Winston MD 03/28/25 15:49:
I saw and examined the patient.
The Photo Lab Specialist's note was reviewed and I agree with the note.
Comment: Exam is stable without change. Clearly musculoskeletal chest discomfort. When I placed my stethoscope on his chest it reproduces the chest discomfort.
Presented to the ER with chest pain and syncope. Chest pain is musculoskeletal. Previous workup noted.
Syncope most likely orthostatic in nature. He has heart failure with reduced ejection fraction now with mildly reduced ejection fraction on echocardiogram this hospital stay. He had an episode of dizziness today. Likely somewhat dehydrated in
addition.
Plan at this time:
- Orthostatic vital signs noted. Increase fluid intake.
- Decrease carvedilol from 12.5 mg twice daily to 6.25 mg twice daily.
- Guideline directed medical therapy for heart failure with reduced ejection fraction mildly reduced ejection fraction as tolerates
- library monitor stable.
- Device checks stable with 3-month battery life of ICD and plan for follow-up as outpatient with [facility] cardiology
Original Note:
Today's Communication / Plan
-
Outpatient primary sales support representative is responsible for completing paperwork for MRI compatibility of his CLINICAL INFORMATICS STRATEGIST�D
Patient is orthostatic, reduce Coreg to 3.125 mg BID
EF has improved to 40 to 45% by echo yesterday so reluctant to d/c Coreg altogether and start a standing dose of midodrine
Patient is tender to chest wall palpation and chest pain appears to be noncardiac
Impression / Plan
-
[facility] Cardiology [facility]
Assessment:
Presented to the ER with chest pain and syncope 03/27/2025
Recent admission to [facility] for syncope and trauma, was admitted for at least 3 days 03/2025
Recent admission for chest pain 02/22/2025 until 02/25/2025
Recent admission for chest pain 01/16/2025 until 01/20/2025
Recent admission for chest pain 01/10/2025 until 01/15/2025
ADIS
Syncope with loss of consciousness and fall
Chest pain
Elevated troponin
Nonischemic cardiomyopathy, EF as low as 18% in past, 36% by echo 06/2023, 20 to 25% by echo 01/11/2025 and now improved to 40 to 45% by echo 03/27/2025
Nonobstructive CAD by cardiac cath 01/10/25
[employer] CLINICAL INFORMATICS STRATEGIST�D
3 months battery longevity at last check 02/25/2025
Chronic heart failure with reduced EF
Permanent atrial fibrillation
Chronic Xarelto therapy
Diabetes
History of CVA
History of bariatric surgery in 2021
GLENIS
ECHO 06/2023 OSH: EF 36%
Echo 01/11/2025: EF 20 to 25% with severe global hypokinesis with inferoseptal wall appearing to be hypokinetic. Mildly dilated left ventricle. Mild concentric LVH. No left atrial appendage thrombus. Grade 3 DD. Moderately dilated left atrium.
No significant valve disease
Echo 03/27/2025: EF 40 to 45%, mild concentric LVH, normal RV size and function, aortic sclerosis without stenosis, compared to echo from 01/11/2025 the EF has improved
Cardiac cath 01/17/2025 with no obstructive coronary artery disease
Plan:
-Patient reports an episode of near syncope while standing and brushing his teeth 03/28/2025 AM, but no mention in nursing notes. No recurrence of near syncope throughout the day
-Patient reported an episode of syncope on admission 03/27/2025 and orthostatic VS from that day reviewed by me include a supine BP of 114/67, sitting BP 99/55 and standing BP of 76/46. Patient is orthostatic.
-Patient is chronically on Coreg 12.5 mg BID. Will reduce Coreg to 3.125 mg BID and pending response to decrease dose of Coreg could also consider adding midodrine as a standing order instead of just PRN.
-Patient has ongoing chest pain that happens several times a day sometimes lasting for hours at a time. Patient is tender to touch over the left ACW and he reports this tenderness started prior to any of his syncope with fall and chest injury
episodes in the last 2 weeks. Suspect chest pain is noncardiac given chest wall tenderness and nonobstructive CAD by cardiac cath 01/17/2025.
-Troponin was 0.054 on admission and then trended down to 0.053. We will manage this as a nonischemic myocardial injury troponin elevation. Patient reports pain is controlled with Dilaudid 0.25 mg IV every 3 hours PRN, not clear if there is a role
for narcotic pain medications in the present setting
-Patient has known NICM and EF previously as low as 18% but now appears to be improved to 40 to 45% by echo 03/27/2025
-Outpatient dose of Coreg reduced to 3.125 mg BID due to symptomatic orthostasis
-Outpatient dose of Jardiance has been continued.
-Patient is not chronically on JUAN/ARB/ARNI/aldosterone antagonist due to lightheadedness and dizziness when these medications were attempted in the past.
-Cre improved to 1.4 on my review of labs from 03/28/2025. Outpatient dose of Bumex 2 mg daily remains on hold
-Patient has known permanent A-fib. His usual dose of Xarelto 20 mg daily should be continued, CrCl is 58
-CT of the head performed in the ER on 03/27/2025 and report reviewed by me shows 2 focal areas of encephalomalacia within the right occipital lobe that are compatible with areas of old infarct. Patient scheduled for MRI of the brain to better
define these areas. From a cardiac standpoint MRI should be ordered and the MRI department will then coordinate with the patient's primary sales support representative who manages his CLINICAL INFORMATICS STRATEGIST�D to be sure that it is MRI compatible.
-Patient has a [employer] CLINICAL INFORMATICS STRATEGIST�PE in place. I coordinated device check 03/27/2025 and reviewed with the device marketing representative that the patient has just over 3 months of battery longevity and has not yet hit explant indicator and that once
patient does had explant indicator he will have an audible alert and from that point he will have 3 months to complete generator change. I called and talked with the director of the health clinic at the present and they report patient is scheduled
to see comprehensive cardiology on 04/17/2025 and then have a device check with them in 04/26/2025 and they will coordinate generator change at that time.
HPI: Patient presents to the ER today with complaints of chest pain and loss of consciousness and cardiology has been consulted. This is the patient's 4th evaluation for chest pain in the ER at [facility] send January also patient had a visit to [facility]
that lasted 3 to 4 days for symptoms of syncope and trauma, he says this was last week. Patient had cardiac catheterization 01/17/2025 that showed nonobstructive CAD. Despite unremarkable cardiac catheterization the patient has continued to have
chest pain with intermittent elevation of his troponin levels. Patient was previously treated for NICM with EF as low as 18% in the past, but closer to 20 to 25% by echo 01/11/2025. Patient is on GDMT with Coreg and Jardiance. Patient has a [employer] CLINICAL INFORMATICS STRATEGIST�D in place and has been approaching SAL, at last device check on 02/25/2025 he had 3 months of battery longevity and patient was scheduled to see his primary medical records coordinator to discuss generator change on 03/15/2025, the patient
tells me this appointment never happened and no recent generator change. Patient has not heard any beeping from his device. Additionally the patient has recurrent near syncope and syncope that is not associated with arrhythmia according to device
interrogations. Patient noted to be hypotensive at times and other times is normotensive to hypertensive. Patient was treated for possible pericarditis following his last admission, patient does not recall feeling any better with colchicine
treatment.
Progress Note - Matchbook Maker
Subjective
Date of Service: March 28, 2025
He had chest pain this morning and an episode of near syncope
Objective
Labs:
03/28/25 07:16
03/28/25 07:16
Labs
Hgb 14.3 g/dL (13.0-18.0) 03/28/25 07:16
Hct 38.7 % (39.0-52.0) L 03/28/25 07:16
Plt Count 175 10^3/uL (130-400) D 03/28/25 07:16
Sodium 133 mmol/L (135-145) L 03/28/25 07:16
Potassium 3.6 mmol/L (3.5-5.1) 03/28/25 07:16
BUN 23 mg/dl (9-20) H 03/28/25 07:16
Creatinine 1.4 mg/dL (0.7-1.3) H 03/28/25 07:16
Glucose 94 mg/dl (70-99) 03/28/25 07:16
Troponins
03/27/25 03/27/25 03/27/25
09:14 13:08 19:00
Troponin I 0.054 H* 0.053 H* Cancelled
Vital Signs and I&O:
Vital Signs
Temp Pulse Resp BP Pulse Ox
97.4 F 71 18 104/62 100
03/28/25 11:31 03/28/25 11:31 03/28/25 11:31 03/28/25 11:31 03/28/25 11:31
Vital Signs
Temp Pulse Resp BP Pulse Ox
97.4 F 71 18 104/62 100
03/28/25 11:31 03/28/25 11:31 03/28/25 11:31 03/28/25 11:31 03/28/25 11:31
Intake & Output
03/26/25 03/27/25 03/28/25 03/29/25
06:59 06:59 06:59 06:59
Intake Total 240 / 240
Balance 240 / 240
Physical Exam
Physical Exam
GEN: NAD, AAO x 3
HEENT: EOMI, MMM
LUNGS: RA. CTA B/L, no wheeze
CV: V paced and appears to be underlying A-fib. Reg, S1/S2, no murmur. Tender to palpation left ACW
ABD: ND
EXT: No edema B/L LE
NEURO: Gross non-focal
SKIN: No rash, warm, dry, pink
--- NOTE | 2025-03-28 15:07 | W.CARD.DEVCH ---
Cardiac Device Check
-
Device: Implanted Cardioverter-Defibrillator (COMPLIANCE CONSULTANT-V)
Wool Presser: [employer]
The patient's device was interrogated with assistance of the device door to door sales representative followed by a complete physician review. The device had normal function. No abnormalities seen.
Patient has a [employer] COMPLIANCE CONSULTANT�T in place. I coordinated with the device door to door sales representative for interrogation on 03/27/2025 and then talked with door to door sales representative on 03/28/2025 to review the results. The patient has over 3 months of battery
longevity and he is not pacemaker dependent. Patient is not yet at the explant indicator and once he flips the explant indicator he will have an audible alert and then have 3 months to arrange for generator change.
[2025-03-28 15:27] VITALS: BP 103/56; BP 114/63; BP 114/68; BP 83/53; PULSE 71; PULSE 72
--- NOTE | 2025-03-28 15:43 | W.PN.HOSP.TC ---
Addendum entered and electronically signed by Hussein Pham MD 03/28/25 21:25:
Attending Addendum-I saw and evaluated the patient. I reviewed the resident�s note and agree with findings and plan as documented in the resident�s note. Sub: had episode of presyncope this am on standing. No fall. able to request help. continues to
have left lower rib pain improved with pain meds. No NV abd pain fevers chills urinary complaints. Full 12 point ROS reviewed and negative except as documented Exam- vitals reviewed in EMR GEN-NAD heart RRR no MRG Chest- TTP over left lower ant
ribs, lungs CTA B/L abd soft NT ND no rebound guarding LE no edema Neuro AAO x 3 MS 09/10 sensation intact
Plan:
# Atypical Chest Pain/NIMI
- reproducible
- trend trops
- interrogate MOP MACHINE OPERATOR-D-WNL
- repeat ECHO 03/27-Left ventricular systolic function is mildly reduced with LVEF 40-45%-improved from 20-25%
- cardiac cath on 01/17- non obs CAD
- cards input apprecaited
- EKG reviewed and non ischemic
# Syncope
- orthostatic hypotension
- add prn midodrine
- decrease coreg
# Vision Changes
- check MRI-P,CD-no sig stenosis B/L
- likely from orthostasis
# ADIS
- unclear why on bactrim but could be cause
- give fluid in ED
- repeat BMP in am
# Hyponatremia
- appears euvolemic
- repeat BMP in am given IVF in ED
# HFrEF->HFimpEF, nonischemic cardiomyopathy
- not in AE, MOP MACHINE OPERATOR-D in place
- ECHO 03/27-Left ventricular systolic function is mildly reduced with LVEF 40-45%
- previous echo 01/11- EF 20-25%
- hold diuretic for today, restart in am add MRA if able, decrease coreg
- cont SGLTi
# Permanent A fib
- cont decreased coreg and xarelto
# DM
- recent HBa1c- 6.7
- verify meds, recently taken off glipizide
- cont mounjaro
- cont SSI
# Depression- cont lexapro
# H/O CVA repeat MRI for eval cont asa atorva
DVTp-xarelto
CODE FULL
Dispo- [facility] in am
Time spent coordinating care, review of plan of care with resident, personally reviewed records in EMR, med rec, consults, notes, labs, radiology, d/w nursing � 52 mins
Original Note:
Today's Communication/Plan
-
- Ordered MRI without contrast of brain
- Ordered midodrine 5 mg p.o. every 4 hours as needed for systolic BP less than 110
- Carotid ultrasound showed minimal calcified plaque within both carotid bulbs and proximal internal carotid arteries. Any stenosis less than 50% based on velocity criteria.
- Will defer to cardiology regarding restarting home diuretics and/or fluids
Assessment / Plan
Assessment / Plan
#Atypical chest pain
- Interrogation of pacemaker today by cardiology
- Repeat echo on 03/27 showed improved ejection fraction
- Cardiac cath in January showed nonobstructive CAD
- Cardiology is consulted, will defer to their recommendations
#Syncope
#Vision changes
- High risk for cardiogenic etiology
- Carotid ultrasound showed minimal calcified plaque within both carotid bulbs and proximal internal carotid arteries. Any stenosis less than 50% based on velocity criteria.
- Orthostatic vitals positive
- Ordered MRI without contrast of brain
- Ordered midodrine 5 mg p.o. every 4 hours as needed for systolic BP less than 110
#ADIS
- Creatinine 1.4 today, baseline 0.8
- Received 1 L fluids in ED
#HFrEF, now HFimpEF
- Continue Coreg
- Continue Jardiance
#Permanent atrial fibrillation
- Continue Coreg
- Continue Xarelto
#Diabetes mellitus
- Recent HbA1c 6.7%
- Continue Jardiance, Mounjaro
#Anxiety
- Continue Lexapro
- Continue BuSpar
#History of CVA
- Ordered MRI with contrast
- Continue ASA 81
- Continue atorvastatin
Full code
DVT PPx�Xarelto
Anticipated Discharge: 24 - 48 hours
Subjective/Interval History
-
Date of Service: March 28, 2025
Patient seen this morning at the bedside. Patient is feeling anxious as he had another near syncopal event this morning, right before I came in. Patient states that he went to brush his teeth, was standing in the bathroom, and started to feel the
room spinning and got very dizzy. Patient states that he felt like he was about to pass out again, and called for one of his cards who was in the room. The guard came in and helped steady him and get him back into bed. Patient did not lose
consciousness, patient did not fall down, patient did not have any nausea or vomiting. Patient did not experience any chest pain during this episode. Patient is now complaining of a headache different in nature from his headache yesterday, whole
head. Patient does note that he had 3 bowel movements overnight. Patient patient is still experiencing the visual changes of the black dots in his field of vision. Patient currently denies any chest pain shortness of breath, nausea vomiting,
abdominal pain.
Objective Data
-
Labs:
Laboratory Results
03/28/25
07:16
WBC 5.7
Hgb 14.3
Hct 38.7 L
Plt Count 175 D
Sodium 133 L
Potassium 3.6
Chloride 98
Carbon Dioxide 28
BUN 23 H
Creatinine 1.4 H
Glucose 94
Calcium 9.2
Total Bilirubin 1.8 H D
AST 35
ALT 39
Alkaline Phosphatase 90
Vital Signs:
Vital Signs
Temp Pulse Resp BP Pulse Ox
97.6 F 72 18 114/68 99
03/28/25 15:27 03/28/25 15:27 03/28/25 15:27 03/28/25 15:27 03/28/25 15:27
I&O
03/27/25 03/28/25 03/29/25
06:59 06:59 06:59
Intake Total 240 / 240
Balance 240 / 240
Review of Systems
-
History Source: Patient
Constitutional: Reports No Symptoms
EENT: Reports Other (Visual changes unchanged from the last few weeks)
Respiratory: Reports No Symptoms
Cardiac: Reports No Symptoms
Abdomen/GI: Reports No Symptoms
Breast: Reports No Symptoms
Genitourinary: Reports No Symptoms
Musculoskeletal: Reports No Symptoms
Skin: Reports No Symptoms
Neuro: Reports Headache (Generalized, whole)
Endocrine: Reports No Symptoms
Hematologic / Lymphatic: Reports No Symptoms
Psych: Reports Anxious
Physical Exam
-
General: Well Developed and Well Nourished
Respiratory: Clear to Auscultation
Cardiac: Regular Rhythm
GI: Soft, Nontender and Nondistended
Musculoskeletal: No Edema
Skin: Warm and Dry
Neuro: Awake, Alert and Oriented
Psych: Anxious
[2025-03-28] MEDS: XARELTO 20 MG PO (18:37)
[2025-03-28 19:25] VITALS: BP 109/58; BP 119/73; BP 136/75; PULSE 71; PULSE 72
[2025-03-28] MEDS: LEXAPRO 10 MG PO (20:28)
[2025-03-28] MEDS: TYLENOL #3 1 TABLET PO (20:28)
[2025-03-28] MEDS: COREG PO (21:13)
[2025-03-29 00:06] VITALS: BP 139/75
[2025-03-29 03:16] VITALS: BP 134/71
[2025-03-29 07:07] LABS: Hematocrit 38.3 % (39.0-52.0); Hemoglobin 14.0 g/dL (13.0-18.0); Mean Corp Hgb Conc. 36.6 g/dL (33.0-37.0); Mean Corpuscular Volume 87.6 fL (80.0-94.0); Platelet Count 172 10^3/uL (130-400); Red Cell Dist. Width 12.4 % (11.5-14.5)
[2025-03-29 07:30] VITALS: BP 109/70; BP 124/79; BP 126/80; PULSE 72
[2025-03-29 07:50] LABS: Blood Urea Nitrogen 16 mg/dl (9-20); Calcium 8.9 mg/dl (8.4-10.2); Carbon Dioxide 31 mmol/L (22-30); Chloride 98 mmol/L (98-107); Estimated Creatinine Clearance 79 ml/min; Glucose 91 mg/dl (70-99); Potassium 4.1 mmol/L (3.5-5.1); Sodium 136 mmol/L (135-145); eGFR > 60.00
[2025-03-29] MEDS: BACTRIM DS 800 MG/160 MG 1 TABLET PO (08:51)
[2025-03-29] MEDS: TYLENOL 1000 MG PO ×2 (08:52→13:36)
[2025-03-29] MEDS: ASPIR LOW (ENTERIC COATED) 81 MG PO (08:53)
[2025-03-29] MEDS: LIPITOR 40 MG PO (08:53)
[2025-03-29] MEDS: FARXIGA 10 MG PO (08:53)
[2025-03-29] MEDS: PROTONIX 40 MG PO (08:53)
[2025-03-29] MEDS: BUSPAR 10 MG PO (08:53)
[2025-03-29] MEDS: LIDOCAINE 4% PATCH 1 PATCH TOPICAL (08:55)
[2025-03-29] MEDS: COREG 6.25 MG PO ×2 (08:59→21:33)
[2025-03-29] MEDS: KCL 10 MEQ PO (08:59)
[2025-03-29 11:10] VITALS: BP 113/65
--- NOTE | 2025-03-29 12:04 | W.PN.CARDCBS ---
Addendum entered and electronically signed by Carly Martinez PA-C 03/29/25 17:09:
With hypotension and orthostasis, would recommend continuing to hold bumex at discharge and follow up with BMP next week w/ results to primary direct response consultant. Should follow daily weights and call primary direct response consultant if 3lb weight gain noted.
Original Note:
Today's Communication / Plan
-
Will add hold parameters for carvedilol
Continue to follow BP
Follow up arranged w/ primary direct response consultant. Will sign off.
Impression / Plan
-
[facility]
Assessment:
Presented to the ER with chest pain and syncope 03/27/2025
Recent admission to [facility] for syncope and trauma, was admitted for at least 3 days 03/2025
Recent admission for chest pain 02/22/2025 until 02/25/2025
Recent admission for chest pain 01/16/2025 until 01/20/2025
Recent admission for chest pain 01/10/2025 until 01/15/2025
ADIS
Syncope with loss of consciousness and fall
Chest pain
Elevated troponin
Nonischemic cardiomyopathy, EF as low as 18% in past, 36% by echo 06/2023, 20 to 25% by echo 01/11/2025 and now improved to 40 to 45% by echo 03/27/2025
Nonobstructive CAD by cardiac cath 01/10/25
[employer] HOG TENDER�D
3 months battery longevity at last check 02/25/2025
Chronic heart failure with reduced EF
Permanent atrial fibrillation
Chronic Xarelto therapy
Diabetes
History of CVA
History of bariatric surgery in 2021
GLENIS
ECHO 06/2023 OSH: EF 36%
Echo 01/11/2025: EF 20 to 25% with severe global hypokinesis with inferoseptal wall appearing to be hypokinetic. Mildly dilated left ventricle. Mild concentric LVH. No left atrial appendage thrombus. Grade 3 DD. Moderately dilated left atrium.
No significant valve disease
Echo 03/27/2025: EF 40 to 45%, mild concentric LVH, normal RV size and function, aortic sclerosis without stenosis, compared to echo from 01/11/2025 the EF has improved
Cardiac cath 01/17/2025 with no obstructive coronary artery disease
Plan:
-Presented with chest pain and syncope. Continues to have dizziness/orthostasis as well as chest pain.
-Chest pain reproducible with palpation, likely noncardiac. Nonobstructive CAD by cath 01/17/2025. Troponin peaked at 0.054 and trended down there after. Managing as nonischemic myocardial injury.
-Orthostasis noted 03/28, and dose of carvedilol reduced to 6.25mg BID. Still feeling lightheaded in AM 03/29, and BP still noted to drop from 124 to 109 systolic when going from sitting to standing, so will add hold parameters.
-Consider adding standing order for midodrine if needed.
-Known NICM with EF previously as low as 18%. Now appears improved to 40-45% by echo 03/27/2025.
-Continue lower dose carvedilol and Jardiance.
-Not on JUAN/ARB/ARNI/aldosterone antagonist due to orthostasis.
-Creat continues to improve, down to 1.1. Bumex on hold.
-Known permanent atrial fibrillation, continues on Xarelto 20mg daily. HR stable.
-HOG TENDER-D in place. 3 months battery life remaining by device check 03/27. Generator change to be arranged at follow up visit with primary direct response consultant.
-For MRI of brain today.
-Follow up has been arranged with primary direct response consultant. Will sign off, please call with questions.
HPI: Patient presents to the ER today with complaints of chest pain and loss of consciousness and cardiology has been consulted. This is the patient's 4th evaluation for chest pain in the ER at [facility] send January also patient had a visit to [facility]
that lasted 3 to 4 days for symptoms of syncope and trauma, he says this was last week. Patient had cardiac catheterization 01/17/2025 that showed nonobstructive CAD. Despite unremarkable cardiac catheterization the patient has continued to have
chest pain with intermittent elevation of his troponin levels. Patient was previously treated for NICM with EF as low as 18% in the past, but closer to 20 to 25% by echo 01/11/2025. Patient is on GDMT with Coreg and Jardiance. Patient has a [employer] HOG TENDER�D in place and has been approaching SAL, at last device check on 02/25/2025 he had 3 months of battery longevity and patient was scheduled to see his primary high worker to discuss generator change on 03/15/2025, the patient
tells me this appointment never happened and no recent generator change. Patient has not heard any beeping from his device. Additionally the patient has recurrent near syncope and syncope that is not associated with arrhythmia according to device
interrogations. Patient noted to be hypotensive at times and other times is normotensive to hypertensive. Patient was treated for possible pericarditis following his last admission, patient does not recall feeling any better with colchicine
treatment.
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
Subjective
Date of Service: March 29, 2025
Still feels chest pain w/ palpation. Still dizziness with position change.
Objective
Labs:
03/29/25 06:09
03/29/25 06:09
Labs
Hgb 14.0 g/dL (13.0-18.0) 03/29/25 06:09
Hct 38.3 % (39.0-52.0) L 03/29/25 06:09
Plt Count 172 10^3/uL (130-400) 03/29/25 06:09
Sodium 136 mmol/L (135-145) 03/29/25 06:09
Potassium 4.1 mmol/L (3.5-5.1) 03/29/25 06:09
BUN 16 mg/dl (9-20) 03/29/25 06:09
Creatinine 1.1 mg/dL (0.7-1.3) 03/29/25 06:09
Glucose 91 mg/dl (70-99) 03/29/25 06:09
Troponins
03/27/25 03/27/25 03/27/25
09:14 13:08 19:00
Troponin I 0.054 H* 0.053 H* Cancelled
Vital Signs and I&O:
Vital Signs
Temp Pulse Resp BP Pulse Ox
97.9 F 72 16 11365 97
03/29/25 11:10 03/29/25 11:10 03/29/25 11:10 03/29/25 11:10 03/29/25 11:10
Vital Signs
Temp Pulse Resp BP Pulse Ox
97.9 F 72 16 11365 97
03/29/25 11:10 03/29/25 11:10 03/29/25 11:10 03/29/25 11:10 03/29/25 11:10
Intake & Output
03/27/25 03/28/25 03/29/25 03/30/25
06:59 06:59 06:59 06:59
Intake Total 240 / 240 1920 / 1920
Output Total 500 / 500
Balance 240 / 240 1420 / 1420
Physical Exam
Physical Exam
GEN: NAD, AAO x 3
HEENT: EOMI, MMM
LUNGS: RA. CTA B/L, no wheeze
CV: Reg, S1/S2, no murmur
EXT: No edema B/L LE
NEURO: Gross non-focal
SKIN: No rash, warm, dry, pink
[2025-03-29] MEDS: LIORESAL 5 MG PO (13:38)
--- NOTE | 2025-03-29 14:55 | W.PN.UPDATE ---
Update Note
Progress Note Update
Contacted by hospital medicine regarding finding of incidental left occipital skim extraaxial collection. Per hospital medicine, patient remains at neurological baseline and last known head trauma was reportedly ~2 weeks ago with subsequent syncope
on 03/27 prompting current admission and workup.
Patient is on DOAC for cardiac disease.
MRI and CT reviewed from this admission. Extraaxial collection is very small and nonoperative. Given asymptomatic nature and likely incidental finding with remote and at least 36 hrs since most recent syncopal episode, no need for further imaging
unless symptoms and exam change.
OK to maintain DOAc as risks of withholding outweigh benefits.
--- NOTE | 2025-03-29 15:39 | CM ---
CM reviewed chart, guards bedside.
Care ongoing.
Plan remains return to [facility] when stable.
D/C plan: return back to [facility]. Guards to transport.
[facility] nursing report: [phone]
Discharge instructions fax: [phone]
--- NOTE | 2025-03-29 17:09 | W.PN.HOSP.TC ---
Addendum entered and electronically signed by Hussein Pham MD 03/29/25 21:46:
Attending Addendum-I saw and evaluated the patient. I reviewed the resident�s note and agree with findings and plan as documented in the resident�s note. Sub: continues to have instability on ambulation and dizziness on standing. CP better
controlled. Feels SOB and complains of vision changes. No NV abd pain fevers chills urinary complaints. Full 12 point ROS reviewed and negative except as documented Exam- vitals reviewed in EMR GEN-NAD heart RRR no MRG Chest- TTP over left lower
ant ribs, lungs CTA B/L abd soft NT ND no rebound guarding LE no edema Neuro AAO x 3 MS 09/10 sensation intact
Plan:
# Atypical Chest Pain/NIMI
- reproducible
- trops WNL
- interrogate ENVIRONMENTAL SCIENCE TECHNICIAN-D-WNL
- repeat ECHO 03/27-Left ventricular systolic function is mildly reduced with LVEF 40-45%-improved from 20-25%
- cardiac cath on 01/17- non obs CAD
- cards input appreciated
- EKG reviewed and non ischemic
# Syncope
- orthostatic hypotension
- added prn midodrine add complression stockings, abd binder
- decrease coreg
- hold bumex
# Chronic Small SDH- traumatic
- s/p fall 2 weeks ago
- MRI-There is a small 1.8 mm T1 hyperintense extra-axial collection along the posterior left occipital lobe consistent with a small subdural hematoma. There is no associated mass effect.
- NS c/s- no further intervention, cont DOAC
- CD-no sig stenosis B/L
# ADIS
- resolved
# Hyponatremia
- resolved
# HFrEF->HFimpEF, nonischemic cardiomyopathy
- not in AE, ENVIRONMENTAL SCIENCE TECHNICIAN-D in place
- ECHO 03/27-Left ventricular systolic function is mildly reduced with LVEF 40-45%
- previous echo 01/11- EF 20-25%
- hold diuretic for today due to orthostasis, restart as OP, add MRA if able, decreased coreg
- cont SGLT2i
# Permanent A fib
- cont decreased coreg and xarelto
# DM
- recent HBa1c- 6.7
- verify meds, recently taken off glipizide
- cont mounjaro
- cont SSI
# Depression- cont lexapro
# H/O CVA repeat MRI reviewed no acute CVA, cont asa atorva
DVTp-xarelto
CODE FULL
Dispo- from [facility] in am if able
Time spent coordinating care, review of plan of care with resident, personally reviewed records in EMR, med rec, consults, notes, labs, radiology, d/w nursing, NS, cards � 53 mins
Original Note:
Today's Communication/Plan
-
- MRI today indicating a small 1.8 mm collection along the posterior left occipital lobe consistent with a small subdural hematoma
- Neurosurgery contacted, no intervention indicated at this time. Recommended continuing DOAC
- Cardiology decreased Coreg dose to 6.5 mg twice daily, continue to hold Bumex
Assessment / Plan
Assessment / Plan
#Atypical chest pain
- Interrogation of pacemaker by cardiology without findings
- Repeated echo on 03/27 showed improved ejection fraction
- Cardiac cath in January showed nonobstructive CAD
- Cardiology is consulted, will defer to their recommendations
- Lidocaine patch for possible musculoskeletal pain
#Syncope
#Vision changes
- Brain MRI showed a small 1.8 mm T1 hyperintense extra-axial collection along the posterior left occipital lobe consistent with a small subdural hematoma. There is no associated mass effect. There is a small adjacent soft tissue scalp hematoma in
the left occipital soft tissues which is overall similar appearance to prior CT head.
- Neurosurgery contacted, they believe no further intervention needed, will monitor for changes in symptoms, advised to continue DOAC
- High risk for cardiogenic etiology
- Carotid ultrasound showed minimal calcified plaque within both carotid bulbs and proximal internal carotid arteries. Any stenosis less than 50% based on velocity criteria.
- Orthostatic vitals positive
- Ordered MRI without contrast of brain
- Ordered midodrine 5 mg p.o. every 4 hours as needed for systolic BP less than 110
#ADIS
- Creatinine improved 1.1 today, baseline 0.8
- Received 1 L fluids in ED
#HFrEF, now HFimpEF
- Cardiology decreased Coreg to 6.5 mg twice daily
- Continue Jardiance
- BNP 474
#Permanent atrial fibrillation
- Cardiology decreased Coreg to 6.5 mg twice daily
- Per neurosurgery, patient can continue Xarelto
#Diabetes mellitus
- Recent HbA1c 6.7%
- Continue Jardiance, Mounjaro
#Anxiety
- Continue Lexapro
- Continue BuSpar
#History of CVA
- MRI result showed small 1.8 mm collection consistent with a small subdural hematoma with no associated mass effect.
- Patient neurologically at baseline.
- Continue ASA 81
- Continue atorvastatin
Full code
DVT PPx�Xarelto
Anticipated Discharge: Within 24 hours
Subjective/Interval History
-
Date of Service: March 29, 2025
Patient seen this morning at the bedside. Patient complaining of dizziness. Patient denies any headache currently. Patient complaining of chest pain, unchanged in nature. Patient still complaining of vision changes unchanged in nature for last
month plus. Patient is feeling anxious about his chest pain.
Objective Data
-
Labs:
Laboratory Results
03/29/25
06:09
WBC 3.7 L
Hgb 14.0
Hct 38.3 L
Plt Count 172
Sodium 136
Potassium 4.1
Chloride 98
Carbon Dioxide 31 H
BUN 16
Creatinine 1.1
Glucose 91
Calcium 8.9
Vital Signs:
Vital Signs
Temp Pulse Resp BP Pulse Ox
97.9 F 72 16 96/75 97
03/29/25 11:10 03/29/25 13:11 03/29/25 11:10 03/29/25 13:11 03/29/25 11:10
I&O
03/28/25 03/29/25 03/30/25
06:59 06:59 06:59
Intake Total 240 / 240 1920 / 1920
Output Total 500 / 500
Balance 240 / 240 1420 / 1420
Review of Systems
-
History Source: Patient
Constitutional: Reports No Symptoms
EENT: Reports No Symptoms Reported
Respiratory: Reports No Symptoms
Cardiac: Reports Chest Pain (Noncardiac in nature)
Abdomen/GI: Reports No Symptoms
Genitourinary: Reports No Symptoms
Musculoskeletal: Reports No Symptoms
Skin: Reports No Symptoms
Neuro: Reports Dizzy
Psych: Reports Anxious
Physical Exam
-
General: Well Nourished and No Apparent Distress
HEENT: Other (Well healing scab from laceration on back of head, small palpable scalp hematoma)
Respiratory: Clear to Auscultation
Cardiac: Regular Rhythm
GI: Soft, Nontender and Nondistended
Musculoskeletal: No Edema
Skin: Warm and Dry
Neuro: Awake, Alert and Oriented
Psych: Anxious
[2025-03-29] MEDS: XARELTO 20 MG PO (18:40)
[2025-03-29 19:00] VITALS: BP 124/65
[2025-03-29] MEDS: REMOVE LIDOCAINE PATCH 1 PATCH REMOVE (21:34)
[2025-03-29] MEDS: TYLENOL #3 1 TABLET PO (21:34)
[2025-03-29] MEDS: LEXAPRO 10 MG PO (21:34)
[2025-03-29 22:56] VITALS: BP 128/71
[2025-03-30] VITALS (7 sets, daily range): BP systolic 99–143; BP diastolic 64–87; PULSE 71–72; O2SAT 99
[2025-03-30 07:34] LABS: Hematocrit 39.2 % (39.0-52.0); Hemoglobin 14.2 g/dL (13.0-18.0); Mean Corp Hgb Conc. 36.2 g/dL (33.0-37.0); Mean Corpuscular Volume 87.3 fL (80.0-94.0); Platelet Count 187 10^3/uL (130-400); Red Cell Dist. Width 12.6 % (11.5-14.5)
[2025-03-30 08:22] LABS: Blood Urea Nitrogen 12 mg/dl (9-20); Calcium 9.2 mg/dl (8.4-10.2); Carbon Dioxide 29 mmol/L (22-30); Chloride 100 mmol/L (98-107); Estimated Creatinine Clearance 87 ml/min; Glucose 95 mg/dl (70-99); Potassium 4.2 mmol/L (3.5-5.1); Sodium 131 mmol/L (135-145); eGFR > 60.00
[2025-03-30] MEDS: LIDOCAINE 4% PATCH 1 PATCH TOPICAL (08:22)
[2025-03-30] MEDS: COREG 6.25 MG PO ×2 (08:23→20:29)
[2025-03-30] MEDS: BUSPAR 10 MG PO (08:23)
[2025-03-30] MEDS: KCL 10 MEQ PO (08:23)
[2025-03-30] MEDS: ASPIR LOW (ENTERIC COATED) 81 MG PO (08:23)
[2025-03-30] MEDS: FARXIGA 10 MG PO (08:23)
[2025-03-30] MEDS: PROTONIX 40 MG PO (08:23)
[2025-03-30] MEDS: LIPITOR 40 MG PO (08:24)
[2025-03-30] MEDS: LIORESAL 5 MG PO ×2 (10:54→16:39)
[2025-03-30] MEDS: TYLENOL 1000 MG PO (10:54)
[2025-03-30 11:05] LABS: Vitamin B12 873 pg/ml (239-931)
[2025-03-30] MEDS: DILAUDID 0.25 MG IV (13:48)
--- NOTE | 2025-03-30 14:22 | W.PN.HOSP.TC ---
Today's Communication/Plan
-
Continue to follow orthostatic vital signs
PT OT
Continue PPI
Add Pepcid
Assessment / Plan
Assessment / Plan
59-year-old with left-sided chest pain. Also had a syncopal event. Patient had 4 admissions for chest pain in the last 3 months and 1 admission to [place] for syncope. During admission in January had cardiac workup including a cath with no
obstructive coronary artery disease. Stress test showed no ischemia. Echo showed an EF of 20 to 25%. Following admissions for suspected that patient has pericarditis and was discharged on colchicine.
Complains of left upper quadrant, left lower chest pain states that it does not change with eating
Cardiovascular system S1-S2 appreciated
Chest clear to auscultation
Abdomen soft -complains of pain in left upper quadrant
CT chest abdomen pelvis-no evidence of traumatic injury in the chest abdomen or pelvis. Cholelithiasis with no findings to suggest cholecystitis. History of previous gastric bypass surgery no evidence of bowel obstruction or free air. Slight
prominence of the fat in the region of the umbilicus probably small fat-containing umbilical hernia stable. Tiny defect in the midline anterior abdominal wall just superior to the umbilicus with protrusion of a small amount of fat stable
appearance. Mild subcutaneous edema within the abdomen and pelvis no evidence of focal hematoma.
# Chest pain
Slightly elevated troponin-nonischemic myocardial injury
Interrogation of [id number]
Echo 03/27/2025 EF mildly reduced 40 to 45% which is improved from the past it was 20 to 25%
Cardiac catheterization January 2025 with nonobstructive coronary disease
Cardiology evaluation appreciated
# Syncope-likely orthostatic hypotension
Continue midodrine, compression stockings and abdominal binder while out of bed
PT OT
Orthostatic hypotension noted
Holding Bumex
Decreased Coreg
# Chronic small subdural hematoma-traumatic
Fall was 2 weeks ago
MRI as above
Neurosurgery evaluation no further intervention-continue antiplatelets/Xarelto
# Acute kidney injury-resolved
# Hyponatremia-check osmolality studies. Bumex on hold per cardiology
# Chronic HFrEF-not decompensated
Nonischemic cardiomyopathy
ENGAGEMENT LEAD-D in place
EF improved
Holding diuretic therapy secondary to orthostasis
Continue SGLT2 inhibitors
# Dyslipidemia-continue statin
# History of CVA-no acute CVA-continue aspirin and statin
# Atrial fibrillation-continue Coreg and Xarelto
# Diabetes-hemoglobin A1c 6.7
Continue Mounjaro, Jardiance
Accu-Cheks and sliding cell coverage.
Recently taken off of glipizide
# Depression-continue Lexapro, BuSpar
# History of gastric bypass surgery
# Psoriasis
# DVT prophylaxis-Xarelto
# Full code
PT/OT.
Part of this note was created using voice recognition system. Occasional wrong word or��sound alike� substitutions may have inadvertently occurred due to the inherent limitations of voice recognition software. If noted kindly bring it to my
attention for correction.
Anticipated Discharge: Within 24 hours
Subjective/Interval History
-
Date of Service: March 30, 2025
Objective Data
-
Labs:
Laboratory Results
03/30/25
06:56
WBC 4.3 L
Hgb 14.2
Hct 39.2
Plt Count 187
Sodium 131 L
Potassium 4.2
Chloride 100
Carbon Dioxide 29
BUN 12
Creatinine 1.0
Glucose 95
Calcium 9.2
Vital Signs:
Vital Signs
Temp Pulse Resp BP Pulse Ox
97.9 F 72 16 136/87 96
03/30/25 07:05 03/30/25 07:05 03/30/25 07:05 03/30/25 07:05 03/30/25 07:05
I&O
03/29/25 03/30/2525
06:59 06:59 06:59
Intake Total 1920 / 1920 960 / 960
Output Total 500 / 500
Balance 1420 / 1420 960 / 960
[2025-03-30] MEDS: XARELTO 20 MG PO (16:39)
[2025-03-30] MEDS: REMOVE LIDOCAINE PATCH 1 PATCH REMOVE (20:29)
[2025-03-30] MEDS: PEPCID 20 MG PO (20:29)
[2025-03-30] MEDS: LEXAPRO 10 MG PO (22:22)
[2025-03-31 01:01] VITALS: BP 131/69
[2025-03-31 07:30] VITALS: BP 115/89
[2025-03-31 07:45] LABS: Blood Urea Nitrogen 9 mg/dl (9-20); Calcium 9.0 mg/dl (8.4-10.2); Carbon Dioxide 26 mmol/L (22-30); Chloride 105 mmol/L (98-107); Estimated Creatinine Clearance 109 ml/min; Glucose 87 mg/dl (70-99); Potassium 4.3 mmol/L (3.5-5.1); Sodium 136 mmol/L (135-145); eGFR > 60.00
[2025-03-31] MEDS: KCL 10 MEQ PO (08:56)
[2025-03-31] MEDS: PROTONIX 40 MG PO (08:56)
[2025-03-31] MEDS: BUSPAR 10 MG PO (08:57)
[2025-03-31] MEDS: FARXIGA 10 MG PO (08:57)
[2025-03-31] MEDS: ASPIR LOW (ENTERIC COATED) 81 MG PO (08:57)
[2025-03-31] MEDS: COREG 6.25 MG PO ×2 (08:57→20:02)
[2025-03-31] MEDS: LIDOCAINE 4% PATCH 1 PATCH TOPICAL (08:57)
[2025-03-31] MEDS: LIPITOR 40 MG PO (08:57)
[2025-03-31] MEDS: PEPCID 20 MG PO ×2 (08:57→20:02)
[2025-03-31] MEDS: DILAUDID 0.25 MG IV (08:58)
--- NOTE | 2025-03-31 09:58 | PTCARENOTE ---
patient c/o headache, PRN Dilaudid given with positive pain relief. abd binder applied. amy stocking are on as of this AM
[2025-03-31 11:30] VITALS: BP 117/59; BP 127/82; BP 129/80; PULSE 69; PULSE 71; PULSE 72
--- NOTE | 2025-03-31 12:07 | W.PN.HOSP.TC ---
Addendum entered and electronically signed by Dennis Doss MD 03/31/25 12:24:
More than 30 minutes spent in discharge including
Final examination of the patient
Summarizing hospital stay
Instructions for continuing care to all relevant caregivers
Preparation of discharge records, prescriptions, and referral forms
Original Note:
Today's Communication/Plan
-
No orthostasis
Labs stable
Will discharge patient.
PT OT eval noted.
Assessment / Plan
Assessment / Plan
59-year-old with left-sided chest pain. Also had a syncopal event. Patient had 4 admissions for chest pain in the last 3 months and 1 admission to [place] for syncope. During admission in January had cardiac workup including a cath with no
obstructive coronary artery disease. Stress test showed no ischemia. Echo showed an EF of 20 to 25%. Following admissions for suspected that patient has pericarditis and was discharged on colchicine.
Watching TV
When I walked in said his head has been hurting.
Cardiovascular system S1-S2 appreciated
Chest clear to auscultation
Abdomen soft -complains of pain in left upper quadrant
CT chest abdomen pelvis-no evidence of traumatic injury in the chest abdomen or pelvis. Cholelithiasis with no findings to suggest cholecystitis. History of previous gastric bypass surgery no evidence of bowel obstruction or free air. Slight
prominence of the fat in the region of the umbilicus probably small fat-containing umbilical hernia stable. Tiny defect in the midline anterior abdominal wall just superior to the umbilicus with protrusion of a small amount of fat stable
appearance. Mild subcutaneous edema within the abdomen and pelvis no evidence of focal hematoma.
# Chest pain
Slightly elevated troponin-nonischemic myocardial injury
Interrogation of [id number]
Echo 03/27/2025 EF mildly reduced 40 to 45% which is improved from the past it was 20 to 25%
Cardiac catheterization January 2025 with nonobstructive coronary disease
Cardiology evaluation appreciated
# Syncope-likely orthostatic hypotension
Continue midodrine, compression stockings and abdominal binder while out of bed
PT OT
Orthostatic hypotension better today
Holding Bumex
Decreased Coreg
# Chronic small subdural hematoma-traumatic
Fall was 2 weeks ago
MRI as above
Neurosurgery evaluation no further intervention-continue antiplatelets/Xarelto
# Constipation- No BM charted by nursing. No Constipation on CT A/P from 03/27/25. Pt reported BM on 03/29/25
# Acute kidney injury-resolved
# Hyponatremia-Resolved
# Chronic HFrEF-not decompensated
Nonischemic cardiomyopathy
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
EF improved
Holding diuretic therapy secondary to orthostasis
Continue SGLT2 inhibitors
# Dyslipidemia-continue statin
# History of CVA-no acute CVA-continue aspirin and statin
# Atrial fibrillation-continue Coreg and Xarelto
# Diabetes-hemoglobin A1c 6.7
Continue Mounjaro, Jardiance
Accu-Cheks and sliding cell coverage.
Recently taken off of glipizide
# Depression-continue Lexapro, BuSpar
# History of gastric bypass surgery
# Psoriasis
# DVT prophylaxis-Xarelto
# Full code
PT/OT.
D/W RN
Part of this note was created using voice recognition system. Occasional wrong word or��sound alike� substitutions may have inadvertently occurred due to the inherent limitations of voice recognition software. If noted kindly bring it to my
attention for correction.
Anticipated Discharge: Today
Subjective/Interval History
-
Date of Service: March 31, 2025
Objective Data
-
Labs:
Laboratory Results
03/31/25
06:34
Sodium 136
Potassium 4.3
Chloride 105
Carbon Dioxide 26
BUN 9
Creatinine 0.8
Glucose 87
Calcium 9.0
Vital Signs:
Vital Signs
Temp Pulse Resp BP Pulse Ox
97.5 F 71 16 127/82 98
03/31/25 11:30 03/31/25 11:30 03/31/25 11:30 03/31/25 11:30 03/31/25 11:30
I&O
03/30/25 03/31/25 04/01/25
06:59 06:59 06:59
Intake Total 960 / 960 960 / 960
Balance 960 / 960 960 / 960
--- NOTE | 2025-03-31 12:24 | W.DS.TRANS ---
DC Summary - Obstetrics Gyn Physician
-
Discharge Instructions:
Sleep Apnea Risk Intermediate
Discharge Diagnosis/Procedures Syncope
chest pain
Orthostatic hypotension
1.8 cm posterior left occipital lobe small
subdural hematoma
Acute kidney injury
Hyponatremia
Chronic HFrEF
Dyslipidemia
History of CVA
Atrial fibrillation
Diabetes
Depression
History of gastric bypass
Gallstones
Small umbilical hernia
Diet 2 Gram Sodium,Restrict fluids to 64 oz
Activity As tolerated
Bathing Restrictions None
Specialty Instructions Weigh Daily
Instructions:
Stand-Alone Forms:
Changes to Home Medications: Yes
Discharge Medications:
DC Medications w/original date entered in [employer]
aspirin 81 mg tablet,delayed release 81 mg PO DAILY Blood Clot Prevention/Tx 01/10/25
atorvastatin 40 mg tablet (Lipitor) 40 mg PO DAILY High Cholesterol 01/10/25
empagliflozin 10 mg tablet (Jardiance) 10 mg PO DAILY Diabetes 01/10/25
rivaroxaban 20 mg tablet (Xarelto) 20 mg PO QPM Blood Clot Prevention/Tx 01/10/25
docusate sodium 100 mg capsule 100 mg PO BIDPRN PRN constipation 01/16/25
therapeutic multivitamin 1 tab PO DAILY Supplement 01/16/25
nitroglycerin 0.4 mg sublingual tablet 0.4 mg sublingual [id number] PRN chest pain #20 tabs 01/20/25
acetaminophen 300 mg-codeine 30 mg tablet 1 tab PO DIRECTED Pain 03/27/25
acetaminophen 500 mg tablet (Tylenol Extra Strength) 1,000 mg PO TIDPRN PRN MILD PAIN 03/27/25
baclofen 5 mg tablet 5 mg PO TIDPRN PRN MUSCLE SPAMS 03/27/25
buspirone 10 mg tablet 10 mg PO DAILY Mental Health/Anxiety 03/27/25
escitalopram oxalate 10 mg tablet 10 mg PO HS Mental Health/Anxiety 03/27/25
pantoprazole 40 mg tablet,delayed release 40 mg PO DAILY Gastrointestinal Issue 03/27/25
tirzepatide 5 mg/0.5 mL subcutaneous pen injector (Mounjaro) 5 mg SC QWEEK Weight Gain 03/27/25
carvedilol 12.5 mg tablet (Coreg) 6.25 mg (1/2 x 12.5 mg) PO Q12H Heart Disease/Condition #0 tabs 03/31/25
famotidine 20 mg tablet 20 mg PO BID Gastrointestinal issue #0 tabs 03/31/25
lidocaine 4 % topical patch 1 patch topical DAILY pain #0 ea 03/31/25
midodrine 5 mg tablet 5 mg PO TIDPRN PRN orthostatic hypotension #0 tabs 03/31/25
polyethylene glycol 3350 17 gram oral powder packet 17 g PO DAILY Constipation #0 ea 03/31/25
sennosides 8.6 mg tablet (Toña-lillie) 17.2 mg (2 x 8.6 mg) PO HS Constipation #0 tabs 03/31/25
tramadol 50 mg tablet 50 mg PO Q6HPRN PRN moderate pain #0 tabs 03/31/25
Home Medication Changes
Bumex, colchicine, Bactrim, potassium discontinued
Tramadol, Senokot, MiraLAX, midodrine, lidocaine, Pepcid are new
Coreg dose changed
Pending Results: No
[2025-03-31] MEDS: ULTRAM 50 MG PO (12:26)
[2025-03-31] MEDS: COLACE 100 MG PO (13:59)
--- NOTE | 2025-03-31 14:06 | W.PN.UPDATE ---
Addendum entered and electronically signed by Dennis Doss MD 03/31/25 15:44:
EKG unchanged. Paced rhythm. Blood pressure repeat stable. Troponin negative.
X-ray of the abdomen shows constipation. No obstruction
The discomfort that he has is likely from constipation.
Hold tramadol until patient has bowel movements. No more narcotics.
Bowel instruct present to hold codeine and tramadol until patient has bowel movements.
Discharge back to alf
Original Note:
Update Note
Progress Note Update
When he heard about discharge patient is complaining that he has been feeling dizzy. He also complains of chest pain per nursing.
He refused to take bowel regimen
Unclear if the patient has real symptoms , therefore repeat blood pressure check, check an EKG and troponin
X-ray of the abdomen awaited
[2025-03-31 14:10] VITALS: BP 156/87
[2025-03-31] MEDS: MIRALAX PO (14:30)
[2025-03-31] MEDS: SENOKOT PO (14:30)
--- NOTE | 2025-03-31 14:31 | PTCARENOTE ---
this RN walked into this patient room to let him know that the doctor is discharging him. patient stated he has been having dizziness and chest pain every time he has been up to the bathroom today total of 4 times. this RN explained to let staff
know about his concerns and use the call ibrahim to promptly communicate his symptoms. abd xray ordered. patient reported LBM on Thursday 03/29. refused bowel meds ordered by provider twice only agreed to take colace. trops and EKG orders noted and
completed. cont to monitor
[2025-03-31 14:46] LABS: Troponin I 0.026 ng/ml
[2025-03-31 15:30] VITALS: BP 132/74
--- NOTE | 2025-03-31 15:46 | W.DS.TRANS ---
DC Summary - Nematology Teacher
-
Discharge Instructions:
Sleep Apnea Risk Intermediate
Discharge Diagnosis/Procedures Syncope
chest pain
Constipation
Orthostatic hypotension
1.8 cm posterior left occipital lobe small
subdural hematoma
Acute kidney injury
Hyponatremia
Chronic HFrEF
Dyslipidemia
History of CVA
Atrial fibrillation
Diabetes
Depression
History of gastric bypass
Gallstones
Small umbilical hernia
Diet 2 Gram Sodium,Restrict fluids to 64 oz
Activity As tolerated
Bathing Restrictions None
Specialty Instructions Weigh Daily
Instructions: Constipation in adults
Preventing falls in adults
Stand-Alone Forms:
Changes to Home Medications: Yes
Discharge Medications:
DC Medications w/original date entered in [employer]
aspirin 81 mg tablet,delayed release 81 mg PO DAILY Blood Clot Prevention/Tx 01/10/25
atorvastatin 40 mg tablet (Lipitor) 40 mg PO DAILY High Cholesterol 01/10/25
empagliflozin 10 mg tablet (Jardiance) 10 mg PO DAILY Diabetes 01/10/25
rivaroxaban 20 mg tablet (Xarelto) 20 mg PO QPM Blood Clot Prevention/Tx 01/10/25
docusate sodium 100 mg capsule 100 mg PO BIDPRN PRN constipation 01/16/25
therapeutic multivitamin 1 tab PO DAILY Supplement 01/16/25
nitroglycerin 0.4 mg sublingual tablet 0.4 mg sublingual [id number] PRN chest pain #20 tabs 01/20/25
acetaminophen 300 mg-codeine 30 mg tablet 1 tab PO DIRECTED Pain 03/27/25
acetaminophen 500 mg tablet (Tylenol Extra Strength) 1,000 mg PO TIDPRN PRN MILD PAIN 03/27/25
baclofen 5 mg tablet 5 mg PO TIDPRN PRN MUSCLE SPAMS 03/27/25
buspirone 10 mg tablet 10 mg PO DAILY Mental Health/Anxiety 03/27/25
escitalopram oxalate 10 mg tablet 10 mg PO HS Mental Health/Anxiety 03/27/25
pantoprazole 40 mg tablet,delayed release 40 mg PO DAILY Gastrointestinal Issue 03/27/25
tirzepatide 5 mg/0.5 mL subcutaneous pen injector (Mounjaro) 5 mg SC QWEEK Weight Gain 03/27/25
carvedilol 12.5 mg tablet (Coreg) 6.25 mg (1/2 x 12.5 mg) PO Q12H Heart Disease/Condition #0 tabs 03/31/25
famotidine 20 mg tablet 20 mg PO BID Gastrointestinal issue #0 tabs 03/31/25
lidocaine 4 % topical patch 1 patch topical DAILY pain #0 ea 03/31/25
midodrine 5 mg tablet 5 mg PO TIDPRN PRN orthostatic hypotension #0 tabs 03/31/25
polyethylene glycol 3350 17 gram oral powder packet 17 g PO DAILY Constipation #0 ea 03/31/25
sennosides 8.6 mg tablet (Toña-lillie) 17.2 mg (2 x 8.6 mg) PO HS Constipation #0 tabs 03/31/25
tramadol 50 mg tablet 50 mg PO Q6HPRN PRN moderate pain #0 tabs 03/31/25
Home Medication Changes
Tramadol, Senokot, MiraLAX, midodrine, lidocaine patch, Pepcid are new
Coreg dose reduced
Bumex, potassium discontinued
Pending Results: No
[2025-03-31] MEDS: MILK OF MAGNESIA 30 ML PO (16:15)
[2025-03-31] MEDS: TYLENOL 1000 MG PO (16:15)
[2025-03-31] MEDS: XARELTO 20 MG PO (16:15)
[2025-03-31] MEDS: SENOKOT-S 1 TABLET PO (17:18)
[2025-03-31] MEDS: MIRALAX 17 GRAMS PO (17:18)
[2025-03-31] MEDS: REMOVE LIDOCAINE PATCH 1 PATCH REMOVE (20:02)
[2025-03-31] MEDS: LEXAPRO 10 MG PO (20:03)
[2025-03-31] MEDS: SENOKOT 17.2 MG PO (20:03)
[2025-03-31 23:30] VITALS: BP 104/61; BP 127/74; BP 129/78; PULSE 71; PULSE 72
[2025-04-01 07:30] VITALS: BP 139/79
[2025-04-01 08:10] VITALS: BMI 27.5
[2025-04-01 08:13] VITALS: BP 126/70; BP 139/88; BP 142/86; PULSE 71; PULSE 72
[2025-04-01] MEDS: LIPITOR 40 MG PO (08:20)
[2025-04-01] MEDS: PROTONIX 40 MG PO (08:24)
[2025-04-01] MEDS: KCL 10 MEQ PO (08:24)
[2025-04-01] MEDS: ASPIR LOW (ENTERIC COATED) 81 MG PO (08:24)
[2025-04-01] MEDS: FARXIGA 10 MG PO (08:24)
[2025-04-01] MEDS: BUSPAR 10 MG PO (08:24)
[2025-04-01] MEDS: COREG 6.25 MG PO (08:25)
[2025-04-01] MEDS: SENOKOT 17.2 MG PO (08:26)
[2025-04-01] MEDS: LIDOCAINE 4% PATCH 1 PATCH TOPICAL (08:27)
[2025-04-01] MEDS: MIRALAX 17 GRAMS PO (08:27)
[2025-04-01] MEDS: PEPCID 20 MG PO (08:27)
--- NOTE | 2025-04-01 10:24 | W.PN.HOSP.TC ---
Addendum entered and electronically signed by Eneida Tarango MD 04/01/25 14:54:
Attending�addendum:
I saw and evaluated the patient independently. I reviewed and discussed the resident�s note and agree with findings and plan as documented in the resident�s note.� patient seen and examined at bedside, denies any chest pain or shortness of breath,
no abdominal pain, no nausea, no vomiting, no diarrhea or constipation.
Patient still complaining of dizziness, added meclizine
Physical�exam:
GENERAL : Patient is awake, alert, oriented x3
HEENT: Nonicteric sclerae, PERRLA, EOMI. Oropharynx clear. Moist mucous membranes. Conjunctivae appear well perfused.
CHEST: Chest wall is nontender.
HEART: Regular rate and rhythm without murmurs.
LUNGS: Clear to auscultation bilaterally.
ABDOMEN: Soft, positive bowel sounds, nontender, no organomegaly.
RECTAL: Deferred.
MUSCLES/EXTREMITIES: No abnormal range of motion, no swelling.SKIN: No rash, no excessive bruising, petechiae, or purpura.
NEUROLOGIC: Cranial nerves II-XII intact without motor/sensory deficit.
�
Assessment/plan:
Chest pain.
Negative recent cardiac cath.
Echo shows improvement in EF.
Appreciate cardiology input.
Improved with lidocaine patches.
Syncope/dizziness.
Orthostatic hypotension.
Adjusted home meds.
Added meclizine for dizziness.
Chronic small subdural hematoma/traumatic.
Neurosurgery okay to resume antiplatelet and Xarelto.
CODE STATUS: Full code
DVT prophylaxis: Xarelto
Diet: cardiac diet
Disposition: DC today
�
Total time spent on today�s encounter was 51 minutes which included time spent in counseling the patient/family regarding diagnosis and treatment plan as listed above, goals of care, and symptom management. Case was discussed with nursing staff,
specialists, and care coordinators/case management. All labs and imaging personally reviewed by me. Remainder the time spent in detailed review of previous records, lab data, imaging, and other medical provider documentation.
Original Note:
Today's Communication/Plan
-
- Discharge today
- Meclizine 25 mg p.o. every 8 hours as needed
Assessment / Plan
Assessment / Plan
# Chest pain
- Slightly elevated troponin-nonischemic myocardial injury
- Interrogation of [id number]
- Echo 03/27/2025 EF mildly reduced 40 to 45% which is improved from the past it was 20 to 25%
- Cardiac catheterization January 2025 with nonobstructive coronary disease
- Cardiology consulted, determined to be noncardiac in nature
- Improved with lidocaine patch
# Syncope
- Likely orthostatic hypotension
- Compression stockings and abdominal binder while out of bed
- PT OT saw patient to assess
- Orthostatic hypotension improved
- Continue holding Bumex
- Continue with decreased Coreg
- Meclizine 25 mg every 8 hours as needed
# Chronic small subdural hematoma-traumatic
- Fall was 2 weeks ago
- Neurosurgery evaluation no further intervention-continue antiplatelets/Xarelto
# Chronic HFrEF
- Nonischemic cardiomyopathy
- [employer]-D in place
- EF improved on recent echo
- Holding diuretic therapy secondary to orthostasis
- Continue SGLT2 inhibitors
# Dyslipidemia
- continue statin
# History of CVA
- no acute CVA
- continue aspirin and statin
# Atrial fibrillation
- continue Coreg and Xarelto
# Diabetes
- Recent hemoglobin A1c 6.7
- Continue Mounjaro, Jardiance
- Accu-Cheks and sliding cell coverage.
- Recently taken off of glipizide
# Depression
- continue Lexapro, BuSpar
# DVT prophylaxis-Xarelto
# Full code
Anticipated Discharge: Today
Subjective/Interval History
-
Date of Service: April 01, 2025
Patient seen this morning at the bedside. Patient states that his chest pain is improved with the lidocaine patch. Patient said that he still is having a mild headache with some dizziness that is exacerbated by getting up and walking around.
Patient was not wearing his abdominal binder or compression stockings. Patient is still experiencing anxiety, but this is alleviated by knowing his chest pain was not cardiac related.
Objective Data
-
Vital Signs:
Vital Signs
Temp Pulse Resp BP Pulse Ox
97.9 F 72 16 139/79 99
04/01/25 07:30 04/01/25 07:30 04/01/25 07:30 04/01/25 07:30 04/01/25 07:30
I&O
03/31/25 04/01/25 04/02/25
06:59 06:59 06:59
Intake Total 960 / 960 1080 / 1080
Balance 960 / 960 1080 / 1080
Review of Systems
-
History Source: Patient
Constitutional: Reports No Symptoms
EENT: Reports No Symptoms Reported
Respiratory: Reports No Symptoms
Cardiac: Reports Chest Pain (Mild noncardiac, musculoskeletal left-sided chest pain)
Abdomen/GI: Reports No Symptoms (Bowel movement this morning)
Breast: Reports No Symptoms
Genitourinary: Reports No Symptoms
Musculoskeletal: Reports No Symptoms
Skin: Reports No Symptoms
Neuro: Reports Dizzy
Endocrine: Reports No Symptoms
Hematologic / Lymphatic: Reports No Symptoms
Allergy / Immunology: Reports No Symptoms
Psych: Reports Anxious
Physical Exam
-
General: No Apparent Distress
HEENT: Moist Mucous Membranes
Respiratory: Clear to Auscultation
Cardiac: Regular Rhythm
GI: Soft, Nontender and Nondistended
Musculoskeletal: No Edema
Skin: Warm and Dry
Neuro: Awake, Alert and Oriented
Psych: Anxious
[2025-04-01] MEDS: ANTIVERT 25 MG PO (10:33)
--- NOTE | 2025-04-01 12:58 | CM ---
CM reviewed chart, reviewed with Hospitalist.
Plan for patient to d/c back to [facility] today.
CM will continue to follow for all d/c planning needs.
D/C plan: return back to [facility]. Guards to transport.
[facility] nursing report: [phone]
Discharge instructions fax: [phone]
[2025-04-01 15:30] VITALS: BP 134/75
--- NOTE | 2025-04-01 16:12 | W.DCSUMMARY ---
Addendum entered and electronically signed by Eneida Tarango MD 04/01/25 17:31:
Attending�addendum:
I saw and evaluated the patient independently. I reviewed and discussed the resident�s note and agree with findings and plan as documented in the resident�s note.� patient seen and examined at bedside, denies any chest pain or shortness of breath,
no abdominal pain, no nausea, no vomiting, no diarrhea or constipation.
Patient still complaining of dizziness, added meclizine
Physical�exam:
GENERAL : Patient is awake, alert, oriented x3
HEENT: Nonicteric sclerae, PERRLA, EOMI. Oropharynx clear. Moist mucous membranes. Conjunctivae appear well perfused.
CHEST: Chest wall is nontender.
HEART: Regular rate and rhythm without murmurs.
LUNGS: Clear to auscultation bilaterally.
ABDOMEN: Soft, positive bowel sounds, nontender, no organomegaly.
RECTAL: Deferred.
MUSCLES/EXTREMITIES: No abnormal range of motion, no swelling.SKIN: No rash, no excessive bruising, petechiae, or purpura.
NEUROLOGIC: Cranial nerves II-XII intact without motor/sensory deficit.
�
Assessment/plan:
Chest pain.
Negative recent cardiac cath.
Echo shows improvement in EF.
Appreciate cardiology input.
Improved with lidocaine patches.
Syncope/dizziness.
Orthostatic hypotension.
Adjusted home meds.
Added meclizine for dizziness.
Chronic small subdural hematoma/traumatic.
Neurosurgery okay to resume antiplatelet and Xarelto.
CODE STATUS: Full code
DVT prophylaxis: Xarelto
Diet: cardiac diet
Disposition: DC today
�
Total time spent on today�s encounter was 40 minutes which included time spent in counseling the patient/family regarding diagnosis and treatment plan as listed above, goals of care, and symptom management. Case was discussed with nursing staff,
specialists, and care coordinators/case management. All labs and imaging personally reviewed by me. Remainder the time spent in detailed review of previous records, lab data, imaging, and other medical provider documentation.
Original Note:
Documented by User: Cecy Hill DO, Resident 04/01/25 17:16
Discharge Summary
Discharge Data
Date of Admission: 03/27/25
Date of Discharge: 04/01/25
-
Pending Results: No
Hospital Course
Primary diagnosis: Syncope, ADIS
Secondary diagnosis: Chronic HFrEF, dyslipidemia, history of CVA, atrial fibrillation, diabetes, depression, anxiety
Hospital course:
Patient is a 59-year-old male with PMH of HFR EF (echo 01/11/2025 EF: 20 to 25%), hypertension, hyperlipidemia, CAD, permanent atrial fibrillation on Xarelto, pacemaker/ICD, history of 2 TIAs, who presented to [facility] with chest pain after syncopal
event. Patient had 4 recent admissions for chest pain in the last 3 months to [place] as well as an admission to [place] for syncope and trauma requiring a 3-day admission 2 weeks ago. During his previous admissions patient had full cardiac
workup including a cardiac cath that showed no obstructive coronary artery disease, a stress test which showed no ischemia, and an echo which showed an ejection fraction of 20 to 25%.
In the ED, the following was completed: CBC was found to be unremarkable, CMP indicated an ADIS, creatinine 1.5 from his baseline of 0.8. Troponins were slightly elevated at 0.054. CT head, CT cervical spine showed no acute posttraumatic findings.
CT CAP showed no acute posttraumatic findings as well. EKG showed a ventricular paced rhythm, no change from last EKG. Blood pressure was in the 90s over 60s. Cardiology was consulted at this time and patient was admitted for further workup of
syncopal event.
Syncope with loss of consciousness and fall
Syncope was initially thought to be of cardiac origin. Patient had repeat echo which showed improved ejection fraction to 40-45% from 20 to 25% on January echo. Cardiology interrogated patient's pacemaker: [employer]�the yielding no
abnormalities and 3 months of battery longevity. Patient continued to have dizziness throughout admission, especially when getting up to use the bathroom. Orthostatic vitals were positive. Cardiology adjusted blood pressure medications:
Decreasing carvedilol to 6.25 mg, holding Bumex and adding midodrine as needed. Abdominal binder and compression stockings ordered when patient out of bed. Patient's orthostatic vitals and resting blood pressure improved with these interventions.
Patient did continue to have dizziness. Meclizine added to medications. Patient will continue this new blood pressure medication regimen upon discharge and will need to follow-up closely with his outpatient word processing specialist.
Chest pain
Patient's pain continued to be reproducible and left-sided. Cardiology consulted and determined chest pain to be of noncardiac origin given patient's negative cardiac workup - likely musculoskeletal etiology. Patient's chest pain mildly improved
with addition of lidocaine patch and tramadol.
ADIS
Creatinine in the ED was 1.4. Patient received 1 L fluid in ED. Creatinine improved to baseline of 0.8 without further intervention.
Subdural hematoma � chronic
On CT head in the ED, patient without evidence for acute intracranial abnormality, but a left parietal�occipital scalp hematoma was noted. This hematoma was located in the same location as a healing laceration which patient informed us was from his
first syncopal episode and resulting admission at [facility] [place] about 2 weeks ago. Patient did not have any changes in neuro symptoms during admission. Given history of previous TIAs, during our workup for syncope, we ordered a brain MRI
without contrast. Brain MRI revealed a small 1.8 mm subdural hematoma along the left occipital lobe without mass effect. Neurosurgery was consulted and they advised no intervention needed at this time and that patient could continue taking his
DOAC.
Imaging:
03/27/2025 CT cervical spine:
IMPRESSION: No evidence of acute fracture or dislocation.
03/27/2025 CT chest abdomen pelvis
IMPRESSION: No evidence for acute traumatic injury involving the chest abdomen or pelvis.
Cholelithiasis with no findings to suggest acute cholecystitis. No evidence for biliary ductal dilation.
Evidence of previous gastric bypass surgery. No evidence for bowel obstruction or free intraperitoneal air.
Slight prominence of fat in the region of the umbilicus, probably a small fat-containing umbilical hernia, stable appearance with no evidence for inflammation/edema. Tiny defect in the midline anterior abdominal wall just superior to the umbilicus,
with protrusion of a small amount of fat, stable appearance.
Mild subcutaneous edema within the abdomen and pelvis. No evidence for significant focal hematoma.
03/27/2025 CT head
IMPRESSION:
Two focal areas of encephalomalacia within the right occipital lobe as described, compatible with areas of old infarction.
No evidence for acute intracranial abnormality.
Left parieto-occipital scalp hematoma. No evidence for calvarial fracture.
03/28/2025 carotid ultrasound
IMPRESSION:
Minimal calcified plaque within BOTH carotid bulbs and proximal internal carotid arteries. Any stenosis is less than 50% based on velocity criteria.
Antegrade flow within the vertebral arteries.
03/29/2025 brain MRI
IMPRESSION:
There is a small 1.8 mm T1 hyperintense extra-axial collection along the posterior left occipital lobe consistent with a small subdural hematoma. There is no associated mass effect. There is a small adjacent soft tissue scalp hematoma in the left
occipital soft tissues which is overall similar appearance to prior CT head.
Multifocal encephalomalacia most pronounced in the right temporo-occipital region.
03/31/2025 abdominal x-ray
IMPRESSION:
Moderate colonic fecal burden, as well as scattered moderate colonic gas. Small amount of gas within loops of small bowel. No grossly dilated loops of bowel
Discharge Plan
-
Patient Disposition: Halfway
Discharge Diagnosis/Procedures: Syncope
chest pain
Constipation
Orthostatic hypotension
1.8 cm posterior left occipital lobe small subdural hematoma
Acute kidney injury
Hyponatremia
Chronic HFrEF
Dyslipidemia
History of CVA
Atrial fibrillation
Diabetes
Depression
History of gastric bypass
Gallstones
Small umbilical hernia
Condition: Fair
Diet: 2 Gram Sodium and Restrict fluids to 64 oz
Activity: As tolerated
Bathing Restrictions: None
Specialty Instructions: Weigh Daily- Call MD for wt gain/loss 3 lbs overnight/5 lbs in 1 week
Activity Restrictions/Additional Instructions:
Follow-up with your outpatient word processing specialist
If patient has fluid retention need to be seen by outpatient word processing specialist, may need to get Meds restarted.
BRODY stockings and abdominal binder while seated for a long time or upright and ambulating
Change of positions very slow from laying down to sitting up sitting up to standing and standing to walking.
Patient refused bowel regimen. Ensure patient has bowel movements prior to resuming tramadol and Tylenol with codeine
Instructions: Constipation in adults, Preventing falls in adults
Referrals:
Sailaja Sharma CRNP [Non-Admitting Privileges, Cardiology] - 04/17/25
Car Gotti MD [Non-Admitting Privileges, Family Practice] - in less than 1 week
NONE,* [Family Provider, Internal Medicine]
Additional Discharge Medication Instructions: Coreg dose is reduced. Bumex,Colchicine ,potassium and Bactrim discontinued
Prescriptions:
New
sennosides [Toña-lillie] 8.6 mg Tablet
17.2 mg PO HS Qty: 0 0RF
lidocaine 4 % Adhesive Patch,Medicated
1 patch topical DAILY Qty: 0 0RF
polyethylene glycol 3350 17 gram Powder In Packet
17 g PO DAILY Qty: 0 0RF
midodrine 5 mg Tablet
5 mg PO TIDPRN PRN (Reason: orthostatic hypotension) Qty: 0 0RF
tramadol 50 mg Tablet
50 mg PO Q6HPRN PRN (Reason: moderate pain) Qty: 0 0RF
famotidine 20 mg Tablet
20 mg PO BID Qty: 0 0RF
meclizine 25 mg Tablet
25 mg PO Q8HPRN PRN (Reason: Dizziness) Qty: 0 0RF
Continued
atorvastatin [Lipitor] 40 mg Tablet
40 mg PO DAILY
aspirin 81 mg Tablet,Delayed Release (Dr/Ec)
81 mg PO DAILY
Xarelto 20 mg Tablet
20 mg PO QPM
Jardiance 10 mg Tablet
10 mg PO DAILY
therapeutic multivitamin Tablet
1 tab PO DAILY
docusate sodium 100 mg capsule
100 mg PO BIDPRN PRN (Reason: constipation)
nitroglycerin 0.4 mg Tablet, Sublingual
0.4 mg sublingual [id number] PRN (Reason: chest pain) Qty: 20 0RF
acetaminophen-codeine 300-30 mg Tablet
1 tab PO DIRECTED
Rx Instructions:
TAKING 1 BID FOR 2 DAYS ON 03/26/25-03/27/25 THEN 1 TABLET QHS FOR 2 DAYS ON 03/28/25-03/28/25
acetaminophen [Tylenol Extra Strength] 500 mg Tablet
1,000 mg PO TIDPRN PRN (Reason: MILD PAIN)
buspirone 10 mg Tablet
10 mg PO DAILY
baclofen 5 mg Tablet
5 mg PO TIDPRN PRN (Reason: MUSCLE SPAMS)
Mounjaro 5 mg/0.5 mL Pen Injector
5 mg SC QWEEK
pantoprazole 40 mg tablet,delayed release (DR/EC)
40 mg PO DAILY
escitalopram oxalate 10 mg tablet
10 mg PO HS
Changed
carvedilol [Coreg] 12.5 mg Tablet
6.25 mg PO Q12H Qty: 0 0RF
Discontinued
bumetanide 2 mg Tablet
2 mg PO DAILY
colchicine 0.6 mg Tablet
0.6 mg PO DAILY Qty: 10 0RF
potassium chloride [Klor-Con 10] 10 mEq Tablet Extended Release
10 meq PO DAILY
sulfamethoxazole-trimethoprim [Bactrim DS] 800-160 mg Tablet
1 tab PO BID
Rx Instructions:
TAKE UNTIL 04/04/25
Discharge Orders:
Discharge Patient (As Directed); Ordered 03/31/25
Ordered By: Dennis Doss
Discharge Date and Time
Print Language: KUWAITI

Documented by User: Eneida Tarango MD 04/01/25 17:30
Discharge Summary
Discharge Data
Date of Admission: 03/27/25
Date of Discharge: 04/01/25
Discharge Plan
-
Patient Disposition: Halfway
Discharge Diagnosis/Procedures: Syncope
chest pain
Constipation
Orthostatic hypotension
1.8 cm posterior left occipital lobe small subdural hematoma
Acute kidney injury
Hyponatremia
Chronic HFrEF
Dyslipidemia
History of CVA
Atrial fibrillation
Diabetes
Depression
History of gastric bypass
Gallstones
Small umbilical hernia
Condition: Fair
Diet: 2 Gram Sodium and Restrict fluids to 64 oz
Activity: As tolerated
Bathing Restrictions: None
Specialty Instructions: Weigh Daily- Call MD for wt gain/loss 3 lbs overnight/5 lbs in 1 week
Activity Restrictions/Additional Instructions:
Follow-up with your outpatient word processing specialist
If patient has fluid retention need to be seen by outpatient word processing specialist, may need to get Meds restarted.
BRODY stockings and abdominal binder while seated for a long time or upright and ambulating
Change of positions very slow from laying down to sitting up sitting up to standing and standing to walking.
Patient refused bowel regimen. Ensure patient has bowel movements prior to resuming tramadol and Tylenol with codeine
Instructions: Constipation in adults, Preventing falls in adults
Referrals:
Sailaja Sharma CRNP [Non-Admitting Privileges, Cardiology] - 04/17/25
Car Gotti MD [Non-Admitting Privileges, Family Practice] - in less than 1 week
NONE,* [Family Provider, Internal Medicine]
Additional Discharge Medication Instructions: Coreg dose is reduced. Bumex,Colchicine ,potassium and Bactrim discontinued
Prescriptions:
New
sennosides [Toña-lillie] 8.6 mg Tablet
17.2 mg PO HS Qty: 0 0RF
lidocaine 4 % Adhesive Patch,Medicated
1 patch topical DAILY Qty: 0 0RF
polyethylene glycol 3350 17 gram Powder In Packet
17 g PO DAILY Qty: 0 0RF
midodrine 5 mg Tablet
5 mg PO TIDPRN PRN (Reason: orthostatic hypotension) Qty: 0 0RF
tramadol 50 mg Tablet
50 mg PO Q6HPRN PRN (Reason: moderate pain) Qty: 0 0RF
famotidine 20 mg Tablet
20 mg PO BID Qty: 0 0RF
meclizine 25 mg Tablet
25 mg PO Q8HPRN PRN (Reason: Dizziness) Qty: 0 0RF
Continued
atorvastatin [Lipitor] 40 mg Tablet
40 mg PO DAILY
aspirin 81 mg Tablet,Delayed Release (Dr/Ec)
81 mg PO DAILY
Xarelto 20 mg Tablet
20 mg PO QPM
Jardiance 10 mg Tablet
10 mg PO DAILY
therapeutic multivitamin Tablet
1 tab PO DAILY
docusate sodium 100 mg capsule
100 mg PO BIDPRN PRN (Reason: constipation)
nitroglycerin 0.4 mg Tablet, Sublingual
0.4 mg sublingual [id number] PRN (Reason: chest pain) Qty: 20 0RF
acetaminophen-codeine 300-30 mg Tablet
1 tab PO DIRECTED
Rx Instructions:
TAKING 1 BID FOR 2 DAYS ON 03/26/25-03/27/25 THEN 1 TABLET QHS FOR 2 DAYS ON 03/28/25-03/28/25
acetaminophen [Tylenol Extra Strength] 500 mg Tablet
1,000 mg PO TIDPRN PRN (Reason: MILD PAIN)
buspirone 10 mg Tablet
10 mg PO DAILY
baclofen 5 mg Tablet
5 mg PO TIDPRN PRN (Reason: MUSCLE SPAMS)
Mounjaro 5 mg/0.5 mL Pen Injector
5 mg SC QWEEK
pantoprazole 40 mg tablet,delayed release (DR/EC)
40 mg PO DAILY
escitalopram oxalate 10 mg tablet
10 mg PO HS
Changed
carvedilol [Coreg] 12.5 mg Tablet
6.25 mg PO Q12H Qty: 0 0RF
Discontinued
bumetanide 2 mg Tablet
2 mg PO DAILY
colchicine 0.6 mg Tablet
0.6 mg PO DAILY Qty: 10 0RF
potassium chloride [Klor-Con 10] 10 mEq Tablet Extended Release
10 meq PO DAILY
sulfamethoxazole-trimethoprim [Bactrim DS] 800-160 mg Tablet
1 tab PO BID
Rx Instructions:
TAKE UNTIL 04/04/25
Discharge Orders:
Discharge Patient (As Directed); Ordered 03/31/25
Ordered By: Dennis Doss
Discharge Date and Time
Print Language: [place]
== END 2025-04-01 17:54 ==
LOC: 4 WEST ACU 15:00
PROVIDERS: Hospitalist; Physician Assistant Medical; ADMITTING PHYSICIAN Family Medicine; ATTENDING PHYSICIAN General Practice; CONSULT PHYSICIAN Internal Medicine Cardiovascular Disease; EMERGENCY PHYSICIAN Emergency Medicine
DX: I95.1 Orthostatic hypotension (principal); S06.5XAA Traumatic subdural hemorrhage with loss of consciousness status unknown, initial encounter; S20.20XA Contusion of thorax, unspecified, initial encounter; M54.6 Pain in thoracic spine; I48.21 Permanent atrial fibrillation; I5A Non-ischemic myocardial injury (non-traumatic); N17.9 Acute kidney failure, unspecified; F32.A Depression, unspecified; F41.9 Anxiety disorder, unspecified; I25.10 Atherosclerotic heart disease of native coronary artery without angina pectoris; I11.0 Hypertensive heart disease with heart failure; E78.00 Pure hypercholesterolemia, unspecified; I42.8 Other cardiomyopathies; G47.33 Obstructive sleep apnea (adult) (pediatric); L40.9 Psoriasis, unspecified; K59.00 Constipation, unspecified; I50.22 Chronic systolic (congestive) heart failure; E11.9 Type 2 diabetes mellitus without complications; E87.1 Hypo-osmolality and hyponatremia; N32.0 Bladder-neck obstruction; G93.89 Other specified disorders of brain; K80.20 Calculus of gallbladder without cholecystitis without obstruction; R14.0 Abdominal distension (gaseous); I70.0 Atherosclerosis of aorta; W01.198A Fall on same level from slipping, tripping and stumbling with subsequent striking against other object, initial encounter; Y93.89 Activity, other specified; Y92.143 Cell of prison as the place of occurrence of the external cause; I25.2 Old myocardial infarction; Z98.84 Bariatric surgery status; Z95.810 Presence of automatic (implantable) cardiac defibrillator; Z79.82 Long term (current) use of aspirin; Z79.84 Long term (current) use of oral hypoglycemic drugs; Z79.85 Long-term (current) use of injectable non-insulin antidiabetic drugs; Z79.01 Long term (current) use of anticoagulants; Z86.73 Personal history of transient ischemic attack (TIA), and cerebral infarction without residual deficits; Z82.49 Family history of ischemic heart disease and other diseases of the circulatory system; Z79.899 Other long term (current) drug therapy; Z45.02 Encounter for adjustment and management of automatic implantable cardiac defibrillator
CPT/HCPCS: 93289; 70450; 70551; 71260; 72125; 74018; 74177; 80048; 80053; 80306; 80307; 82607; 83735; 83880; 83930; 83935; 84300; 84484; 85025; 85027; 85652; 86140; 87070; 93005; 93308; 93880; 96361; 96374; 97162; 97166; 99285; G0378; Q9967